=== PATIENT | female | born 1960 | race Caucasian/White ===

== ENCOUNTER → 2017-09-14 11:53 | Outpatient (REF) | payer MEDICAID, SELFPAY ==
[2017-09-14 13:24] LABS: Basophils # 0.1 K/mm3 (0-0.2); Basophils % 0.7 % (0.1-2.0); Eosinophils # 0.2 K/mm3 (0.0-0.4); Eosinophils % 2.5 % (0.1-12.0); Hematocrit 39.4 % (37.0-47.0); Hemoglobin 13.4 g/dL (12.2-16.2); Lymphocytes # 2.6 K/mm3 (0.7-4.5); Lymphocytes % 29.7 K/mm3 (10-50); Mean Corpuscular HGB Conc 34.1 g/dL (31.8-35.4); Mean Corpuscular Hemoglobin 29.7 pg (27.0-31.2); Mean Corpuscular Volume 87.2 fl (81-99); Mean Platelet Volume 6.7 fl (7.4-10.4); Monocytes # 0.4 K/mm3 (0.1-1.0); Monocytes % 5.1 % (1.7-9.3); Neutrophils # 5.4 K/mm3 (1.8-7.8); Neutrophils % 62.1 % (37.0-80.0); Platelet Count 369 K/mm3 (142-424); Red Blood Count 4.52 M/mm3 (4.20-5.40); Red Cell Distribution Width 13.3 % (11.5-17.5); White Blood Count 8.7 K/mm3 (4.8-10.8)
[2017-09-14 14:08] LABS: Alanine Aminotransferase 27 U/L (12-78); Albumin Level 3.5 gm/dL (3.4-5.0); Albumin/Globulin Ratio 1.1 (1.1-1.8); Alkaline Phosphatase 158 U/L (46-116); Aspartate Amino Transferase 19 U/L (15-37); Bilirubin,Total 0.6 mg/dL (0.2-1.0); Blood Urea Nitrogen 12 mg/dL (7-18); Calcium 9.7 mg/dL (8.5-10.1); Carbon Dioxide 32 mmol/L (21.0-32.0); Chloride 104 mmol/L (98-107); Chol/HDL Ratio 5.6 (1-3.5); Cholesterol 197 mg/dL (140-200); Creatinine,Serum 1.38 mg/dL (0.55-1.02); Estimated Glomerular Filt Rate 40 ml/min (>60); GFR (African American) 48 ML/MIN (>60); Globulin 3.3 gm/dl (1.3-3.2); Glucose 127 mg/dL (74-106); HDL Cholesterol 35 mg/dL (29-89); LDL Cholesterol 121 mg/dL (0-130); Sodium 143 mmol/L (136-145); T4 (Thyroxine) 8.5 ug/dl (4.7-13.3); Thyroid Stimulating Hormone 0.48 uIU/ml (0.358-3.740); Total Protein,Serum 6.8 gm/dL (6.4-8.2); Triglycerides 204 mg/dL (30-200); VLDL Cholesterol 41 mg/dL (0-40)
[2017-09-14 15:20] LABS: Hemoglobin A1C 5.9 % (0.0-7.0)
[2017-09-15 14:49] LABS: Vitamin D 25 Hydroxy 15.3 ng/mL (30.0-100.0)
== END ==
LOC: LAB 11:53
PROVIDERS: Visit Provider Physician Assistant
DX: R42 Dizziness and giddiness (principal)
CPT/HCPCS: 80053; 80061; 82652; 83036; 84436; 84443; 85025

== ENCOUNTER → 2017-12-23 12:51 | Outpatient (CLI) | payer MEDICAID, SELFPAY ==
--- NOTE | 2017-12-23 12:54 | CT_ITS ---
CT soft tissue neck wo con INDICATION: Right-sided neck swelling ITS.REASON: Swelling on right side of throat ORDERING PHYSICIAN: VON Jovel PATIENT AGE: 57 years COMPARISON: 02/20/2015 TECHNIQUE: Axial images are obtained without contrast. Sagittal and coronal reformatted images are reviewed as well. All CT scans at the facility use one or more dose reduction, viz: automated exposure control, ma/kV adjustment per patient size (including targeted exams where dose is matched to indication, i.e. head), or iterative reconstruction technique. FINDINGS: The orbits have an unremarkable appearance. There is mild mucosal thickening of the ethmoid sinuses. No sinus air-fluid level or mastoid effusion. There is fullness in the left nasopharyngeal region at the fossa of Rosenmuller. This is nonspecific and may limited due to nondistention have a somewhat similar appearance on the previous exam. Direct visualization may be of further value if clinically warranted. There are scattered small nodes present in the neck on both sides. No enlarged nodes are apparent. The parotid and submandibular glands have an unremarkable appearance. There is however a 4 mm calcific density just deep to the central aspect of the mandible on the right and is consistent with a sialolith at the distal aspect of Warthin's duct on the right. The thyroid gland isthmus is thin with suspected nodule at this area with an area of hyperdensity at 10 mm. Ultrasound may provide further evaluation. No glottic or supraglottic mass evident. There is calcification noted within the tonsillar crypts Lung apices are clear. Artifact is present from a left subclavian placed pacemaker. There has been prior median sternotomy. IMPRESSION: 1. 4 mm calcific density just deep to the central aspect of the mandible on the right and is consistent with a sialolith at the distal aspect of Warthin's duct on the right. No obvious mass or adenopathy. Shotty cervical nodes are present nonspecific. Previously noted edema of the right submandibular gland is not readily apparent on today's study. EXAM however is performed without contrast with decrease activity for inflammatory changes. 2. Slight increased density in the left fossa of Rosenmuller nonspecific. 3. Prominent isthmus of the thyroid gland with suspected nodule. This may be better evaluated with ultrasound if clinically warranted
== END ==
PROVIDERS: Family Provider Physician Assistant; PCP Physician Assistant; Visit Provider Physician Assistant
DX: J39.2 Other diseases of pharynx (principal)
CPT/HCPCS: 70490

== ENCOUNTER → 2018-03-15 13:41 | Outpatient (CLI) | payer MEDICAID, SELFPAY ==
[2018-03-15 14:08] LABS: Amphetamine/Metha Screen,Urine Negative ng/mL (<1000); Barbiturates Screen,Urine Negative ng/mL (<200); Benzodiazepines Screen,Urine Positive ng/mL (<200); Cannabinoid Screen,Urine Positive ng/mL (<50); Cocaine Screen,Urine Negative ng/mL (<300); Methadone Screen,Urine Negative ng/mL (<300); Opiate Screen,Urine Negative ng/mL (<300); Phencyclidine Screen,Urine Negative ng/mL (<25)
[2018-03-16 19:26] LABS: Basophils # 0.1 K/mm3 (0-0.2); Basophils % 1.4 % (0.1-2.0); Eosinophils # 0.4 K/mm3 (0.0-0.4); Eosinophils % 5.2 % (0.1-12.0); Hematocrit 39.2 % (37.0-47.0); Hemoglobin 13.9 g/dL (12.2-16.2); Lymphocytes # 2.2 K/mm3 (0.7-4.5); Lymphocytes % 28.6 K/mm3 (10-50); Mean Corpuscular HGB Conc 35.5 g/dL (31.8-35.4); Mean Corpuscular Hemoglobin 31.2 pg (27.0-31.2); Mean Platelet Volume 8.1 fl (7.4-10.4); Monocytes # 0.3 K/mm3 (0.1-1.0); Monocytes % 4.3 % (1.7-9.3); Neutrophils # 4.6 K/mm3 (1.8-7.8); Neutrophils % 60.5 % (37.0-80.0); Platelet Count 343 K/mm3 (142-424); Red Blood Count 4.46 M/mm3 (4.20-5.40); Red Cell Distribution Width 13.6 % (11.5-17.5); White Blood Count 7.7 K/mm3 (4.8-10.8)
[2018-03-16 20:27] LABS: Alanine Aminotransferase 20 U/L (12-78); Albumin Level 3.7 gm/dL (3.4-5.0); Albumin/Globulin Ratio 1.1 (1.1-1.8); Alkaline Phosphatase 129 U/L (46-116); Anion Gap 14.7 mEq/L (5-15); Aspartate Amino Transferase 14 U/L (15-37); Bilirubin,Total 0.3 mg/dL (0.2-1.0); Blood Urea Nitrogen 15 mg/dL (7-18); Calcium 9.7 mg/dL (8.5-10.1); Carbon Dioxide 27 mmol/L (21.0-32.0); Chloride 104 mmol/L (98-107); Chol/HDL Ratio 11.2 (1-3.5); Cholesterol 370 mg/dL (140-200); Estimated Glomerular Filt Rate 57 ml/min (>60); GFR (African American) 69 ML/MIN (>60); Globulin 3.5 gm/dl (1.3-3.2); Glucose 102 mg/dL (74-106); HDL Cholesterol 33 mg/dL (29-89); LDL Cholesterol 265 mg/dL (0-130); Potassium 3.7 mmoL/L (3.5-5.1); Sodium 142 mmol/L (136-145); Thyroid Stimulating Hormone 0.95 uIU/ml (0.358-3.740); Total Protein,Serum 7.2 gm/dL (6.4-8.2); Triglycerides 360 mg/dL (30-200); VLDL Cholesterol 72 mg/dL (0-40)
== END ==
PROVIDERS: Visit Provider Physician Assistant
DX: Z79.899 Other long term (current) drug therapy (principal)
CPT/HCPCS: 80053; 80061; 80305; 82652; 84436; 84443; 85025

== ENCOUNTER → 2018-03-16 19:05 | Outpatient (CLI) | payer MEDICAID, SELFPAY | PROVIDERS: Visit Provider Physician Assistant | DX: R53.83 Other fatigue (principal) | CPT/HCPCS: 80053; 80061; 82652; 84436; 84443; 85025 ==

== ENCOUNTER → 2018-06-23 08:33 | Outpatient (CLI) | payer MEDICAID, SELFPAY ==
--- NOTE | 2018-06-23 08:37 | CA_ITS ---
PROCEDURE: 2-D M-mode and color Doppler study INDICATIONS FOR THE TEST: Chest pain COPD Heart Murmur Tobacco SmokingX Palpitations Fatigue Syncope Edema HypertensionXDiabetes Mellitus Rheumatic Fever SOBXDOE Obesity HyperlipidemiaX Family History HD Additional History CAD,CABG,STENTS,RBBB,PP PATIENT INFORMATION HEIGHT: 70 WEIGHT:216 GENDER: Female B/P:129/70 2-D/M-MODE INTERPRETATION: 2-D MEASUREMENTS OBSERVED VALUES IN CMS Right Ventricular Dimension (RVDd) 1.3 Interventricular Septum (Thickness)(IVsd) 1.1 Left Ventricular Internal Dimensions(LVIDd) 5.7 Left Ventricular Posterior Wall (Thickness)(LVPWd) 1.1 Aortic Root 3.2 Aortic Cusp Separation 1.9 Left Atrial Dimensions (LAD) 3.3 2D 1. Left atrium is mildly enlarged, left ventricle is normal size, mild concentric left ventricular hypertrophy, visually estimated ejection fraction 55% with no regional wall motion abnormality. 2. The right atrium and right ventricle are normal size and contractility. 3. The aortic valve is minimally thickened and fibrosed. 4. The mitral and tricuspid valvular grossly normal. 5. The pulmonic valve is poorly visualized. 6. No significant pericardial effusion noted. DOPPLER INTERROGATION: Doppler interrogation of the aortic, mitral and tricuspid valvular presence of mild mitral and tricuspid regurgitation, tricuspid regurgitation jet velocity is inadequate for calculation of the right ventricular systolic pressure, grade 1 diastolic dysfunction seen without tissue Doppler evidence of raised left atrial pressure. CONCLUSION: 1. Mildly enlarged left atrium, normal left ventricular size, mild concentric left ventricular hypertrophy, visually estimated ejection fraction 55% with no regional wall motion abnormality, grade 1 diastolic dysfunction seen without tissue Doppler evidence of raised left atrial pressure. 2. Mild mitral and tricuspid regurgitation 3. No significant pericardial effusion noted.
--- NOTE | 2018-06-23 08:37 | CI_ITS ---
Cerebrovascular Exam Indications: Transient vision loss 368.12. 780.4 Dizziness and giddiness. IMPRESSIONS 1. The bilateral vertebral arteries are patent with normal antegrade flow. 2. Study suggests less than 20% stenosis involving the right internal carotid artery. No change from the study of 16-Feb-2017. 3. Study suggests 20-49% stenosis involving the left internal carotid artery. No change from the study of 16-Feb-2017. History: Risk factors: Current tobacco use. Hypertension. Hyperlipidemia. Labs, prior tests, procedures, and surgery: Right carotid stent (February 2016). Labs, prior tests, procedures, and surgery: Right carotid stent (February 2016). Carotid duplex study. Complete study and Doppler flow study including spectral analysis, color and lofton scale imaging. Tables: Arterial flow: + +--------+--------+ Location V sys V ed + +--------+--------+ Right CCA - proximal 99cm/s 20.4cm/s + +--------+--------+ Right CCA - distal 62.9cm/s 24.4cm/s + +--------+--------+ Right ECA 293cm/s 46.3cm/s + +--------+--------+ Right ICA - proximal 80.1cm/s 17.3cm/s + +--------+--------+ Right ICA - mid 85.6cm/s 25.9cm/s + +--------+--------+ Right ICA - distal 84.1cm/s 22cm/s + +--------+--------+ Right vertebral 35.8cm/s 15.7cm/s + +--------+--------+ Left CCA - proximal 96.9cm/s 18.3cm/s + +--------+--------+ Left CCA - distal 91.7cm/s 21cm/s + +--------+--------+ Left ECA 162cm/s 21cm/s + +--------+--------+ Left ICA - proximal 160cm/s 25.3cm/s + +--------+--------+ Left ICA - mid 134cm/s 32.3cm/s + +--------+--------+ Left ICA - distal 96.9cm/s 22.7cm/s + +--------+--------+ Left vertebral 25.5cm/s 9.8cm/s + +--------+--------+ Velocity ratios: + + + + + + Right, V sys Right, V ed Left, V sys Left, V ed + + + + + + Max ICA/dist CCA 1.36 1.06 1.74 1.54 + + + + + + (Report amended ) Electronically signed by: Ralf Urias [id number]
== END ==
PROVIDERS: PCP Physician Assistant; Visit Provider Physician Assistant
DX: R06.09 Other forms of dyspnea (principal); R42 Dizziness and giddiness; I65.23 Occlusion and stenosis of bilateral carotid arteries; E78.5 Hyperlipidemia, unspecified; F41.9 Anxiety disorder, unspecified; G62.9 Polyneuropathy, unspecified; I10 Essential (primary) hypertension; I11.9 Hypertensive heart disease without heart failure; I25.10 Atherosclerotic heart disease of native coronary artery without angina pectoris; I45.10 Unspecified right bundle-branch block; K21.9 Gastro-esophageal reflux disease without esophagitis; Z72.0 Tobacco use; Z95.0 Presence of cardiac pacemaker
CPT/HCPCS: 93306; 93880

== ENCOUNTER → 2018-09-05 14:59 | Outpatient (CLI) | payer MEDICAID, SELFPAY ==
[2018-09-05 15:12] LABS: Basophils # 0.1 K/mm3 (0-0.2); Basophils % 0.5 % (0.1-2.0); Eosinophils # 0.3 K/mm3 (0.0-0.4); Eosinophils % 2.7 % (0.1-12.0); Hematocrit 42.3 % (37.0-47.0); Hemoglobin 14.3 g/dL (12.2-16.2); Lymphocytes # 3.4 K/mm3 (0.7-4.5); Lymphocytes % 33.6 % (10-50); Mean Corpuscular HGB Conc 33.7 g/dL (31.8-35.4); Mean Corpuscular Hemoglobin 29.8 pg (27.0-31.2); Mean Corpuscular Volume 88.6 fl (81-99); Mean Platelet Volume 8.2 fl (7.4-10.4); Monocytes # 0.5 K/mm3 (0.1-1.0); Monocytes % 4.4 % (1.7-9.3); Neutrophils % 58.8 % (37.0-80.0); Platelet Count 385 K/mm3 (142-424); Red Blood Count 4.78 M/mm3 (4.20-5.40); Red Cell Distribution Width 13.4 % (11.5-17.5); White Blood Count 10.2 K/mm3 (4.8-10.8)
[2018-09-05 16:18] LABS: Amphetamine/Metha Screen,Urine Negative ng/mL (<1000); Barbiturates Screen,Urine Negative ng/mL (<200); Benzodiazepines Screen,Urine Positive ng/mL (<200); Cannabinoid Screen,Urine Positive ng/mL (<50); Cocaine Screen,Urine Negative ng/mL (<300); Methadone Screen,Urine Negative ng/mL (<300); Opiate Screen,Urine Negative ng/mL (<300); Phencyclidine Screen,Urine Negative ng/mL (<25)
[2018-09-05 16:34] LABS: Alanine Aminotransferase 26 U/L (12-78); Albumin/Globulin Ratio 1.2 (1.1-1.8); Alkaline Phosphatase 156 U/L (46-116); Anion Gap 13.7 mEq/L (5-15); Aspartate Amino Transferase 8 U/L (15-37); Bilirubin,Total 0.3 mg/dL (0.2-1.0); Blood Urea Nitrogen 15 mg/dL (7-18); Calcium 9.9 mg/dL (8.5-10.1); Carbon Dioxide 28 mmol/L (21.0-32.0); Chloride 104 mmol/L (98-107); Chol/HDL Ratio 5.6 (1-3.5); Cholesterol 247 mg/dL (140-200); Creatinine,Serum 1.04 mg/dL (0.55-1.02); Estimated Glomerular Filt Rate 55 ml/min (>60); GFR (African American) 66 ML/MIN (>60); Globulin 3.4 gm/dl (1.3-3.2); Glucose 103 mg/dL (74-106); HDL Cholesterol 44 mg/dL (29-89); LDL Cholesterol 169 mg/dL (0-130); Potassium 3.7 mmoL/L (3.5-5.1); Sodium 142 mmol/L (136-145); T4 (Thyroxine) 9.4 ug/dl (4.7-13.3); Thyroid Stimulating Hormone 0.43 uIU/ml (0.358-3.740); Total Protein,Serum 7.4 gm/dL (6.4-8.2); Triglycerides 170 mg/dL (30-200); VLDL Cholesterol 34 mg/dL (0-40)
[2018-09-07 07:11] LABS: Vitamin D 25 Hydroxy 32.9 ng/mL (30.0-100.0)
[2018-09-07 09:09] LABS: Thyroid Peroxidase Antibodies 24 IU/mL (0-34)
[2018-09-09 06:40] LABS: Thyroid Stimulating Immunoglob <0.10 IU/L (0.00-0.55)
== END ==
PROVIDERS: Visit Provider Physician Assistant
DX: Z79.899 Other long term (current) drug therapy (principal); G62.9 Polyneuropathy, unspecified; E01.0 Iodine-deficiency related diffuse (endemic) goiter
CPT/HCPCS: 80053; 80061; 80305; 82652; 84436; 84443; 84445; 85025; 86376

== ENCOUNTER → 2018-09-08 12:23 | Outpatient (CLI) | payer MEDICAID, SELFPAY ==
[2018-09-08 13:44] LABS: Free Thyroxine Index 3.1 ug/dL (5.93-13.13); T4 (Thyroxine) 9.7 ug/dl (4.7-13.3); Thyroid Stimulating Hormone 0.49 uIU/ml (0.358-3.740); Triiodothryronine (T3) Uptake 32 % (31-39)
[2018-09-09 12:41] LABS: Thyroid Peroxidase Antibodies 16 IU/mL (0-34)
[2018-09-12 10:12] LABS: Thyroid Stimulating Immunoglob <0.10 IU/L (0.00-0.55)
== END ==
PROVIDERS: Visit Provider Otolaryngology
DX: E01.0 Iodine-deficiency related diffuse (endemic) goiter (principal); R13.10 Dysphagia, unspecified
CPT/HCPCS: 36415; 84436; 84443; 84445; 84479; 86376

== ENCOUNTER → 2018-09-14 08:55 | Outpatient (CLI) | payer MEDICAID, SELFPAY ==
--- NOTE | 2018-09-14 09:30 | US_ITS ---
US thyroid HISTORY: ITS.REASON: thyromegly ORDERING PHYSICIAN: Chu Gaspar MD PATIENT AGE: 58 years Comparison: None FINDINGS: Right lobe: 4.7 x 1.7 x 1.6 cm. Nodule A: 3 mm cyst mid polar region. Nodule B: 15 x 11 mm isoechoic nodule lower pole deep within the lobe Nodule C: 5 mm hypoechoic nodule lower pole Left lobe: The left lobe measures 4.4 x 1.6 x 1.4 cm. Nodule A: 4 mm cyst upper pole Isthmus: Thickened at 7 mm. There is a 18 x 10 mm slightly hypoechoic and irregular lesion along the inferior portion of the isthmus. IMPRESSION: 1. Enlarged thyroid gland bilaterally. 2. Multiple thyroid nodules the largest in the inferior aspect of the isthmus. This nodule has a slightly suspicious appearance hypoechoic with nodularity. Fine-needle aspiration with ultrasound guidance could be performed if clinically desired
--- NOTE | 2018-09-14 10:00 | FL_ITS ---
EXAM: Barium swallow/esophagram. INDICATION: ITS.REASON: diffic. swallowing ORDERING PHYSICIAN: Chu Gaspar MD PATIENT AGE: 58 years COMPARISON: None TECHNIQUE: In the upright position the patient was observed to swallow barium in both the AP and lateral view. The cervical esophagus was examined under fluoroscopy with images obtained. The patient was then placed prone in the right anterior oblique position and was observed to swallow barium with Valsalva technique . FLUOROSCOPY TIME: 55 seconds FINDINGS: There was no evidence of aspiration. There was normal peristalsis. No filling defects or mucosal abnormalities. No masses or strictures. Bony spurring involves the cervical spine anteriorly at C5-C6 and to a greater degree at C6-C7 causing some indentation upon the posterior aspect of the esophagus. There is a small sliding hiatal hernia with Valsalva. No annular constricting lesions or polypoid filling defect. IMPRESSION: 1. Small sliding hiatal hernia. 2. Cervical spine osteophytes causing some mild indentation upon the posterior aspect of the esophagus at C6-C7
== END ==
PROVIDERS: PCP Physician Assistant; Visit Provider Otolaryngology
DX: E01.0 Iodine-deficiency related diffuse (endemic) goiter (principal); R13.10 Dysphagia, unspecified
CPT/HCPCS: 74220; 76536

== ENCOUNTER → 2018-10-10 09:43 | Outpatient (CLI) | payer MEDICAID, SELFPAY ==
--- NOTE | 2018-10-10 09:46 | US_ITS ---
US FNA Thyroid HISTORY: Irregular nodule along the inferior portion of the isthmus slightly suspicious ORDERING PHYSICIAN: Chu Gaspar MD PATIENT AGE: 58 years COMPARISON: None TECHNIQUE: Following obtaining informed consent, using aseptic technique and local anesthesia with buffered lidocaine, fine-needle aspiration was performed of the nodule of interest using sonographic guidance. 2 passes were made into the nodule with a 21-gauge and 25-gauge needle. Specimen was given to cytology. The patient tolerated the procedure well without evidence of immediate complications and left the ultrasound suite in stable condition. CYTOLOGY:Negative for malignancy IMPRESSION: Successful sonographic guided fine needle aspiration of the isthmus nodule the thyroid gland showing benign findings
== END ==
PROVIDERS: PCP Physician Assistant; Visit Provider Otolaryngology
DX: E04.1 Nontoxic single thyroid nodule (principal)
CPT/HCPCS: 10005; 76942

== ENCOUNTER → 2019-06-06 13:45 | Outpatient (CLI) | payer OTHER, SELFPAY ==
--- NOTE | 2019-06-06 13:45 | CT_ITS ---
PROCEDURE: CT HEAD/BRAIN WO CON CLINICAL INDICATION: Vertigo COMPARISON: No exams were available for comparison TECHNIQUE: Axial images obtained. All CT scans at the facility use one or more dose reduction, viz: automated exposure control, ma/kV adjustment per patient size (including targeted exams where dose is matched to indication, i.e. head), or iterative reconstruction technique. FINDINGS: No midline shift, mass effect, intracranial hemorrhage, hydrocephalus, or extra-axial fluid collection is evident. There is asymmetrical enlargement of the left lateral ventricle felt to be within the normal variation. A 3 millimeter fat density consistent with lipoma is seen along the anterior midline falx. The calvarium has an unremarkable appearance. No mastoid effusion. No sinus air-fluid level. Mild mucosal thickening of sinusitis is seen in the bilateral ethmoid sinuses and right sphenoid sinus. IMPRESSION: No acute intracranial finding Dictated by: Perfecto Pack 06/06/2019 14:11 Electronically signed by Perfecto Pack in [facility] 06/06/2019 14:11
== END ==
PROVIDERS: PCP Physician Assistant; Visit Provider Physician Assistant
DX: R42 Dizziness and giddiness (principal)
CPT/HCPCS: 70450

== ENCOUNTER → 2019-06-06 17:14 | Outpatient (CLI) | payer OTHER, SELFPAY ==
[2019-06-06 18:29] LABS: Basophils # 0.1 K/mm3 (0-0.2); Basophils % 0.7 % (0.1-2.0); Eosinophils # 0.2 K/mm3 (0.0-0.4); Eosinophils % 1.7 % (0.1-12.0); Hematocrit 43.2 % (37.0-47.0); Hemoglobin 14.1 g/dL (12.2-16.2); Lymphocytes # 2.7 K/mm3 (0.7-4.5); Lymphocytes % 30.7 % (10-50); Mean Corpuscular HGB Conc 32.6 g/dL (31.8-35.4); Mean Corpuscular Hemoglobin 29.5 pg (27.0-31.2); Mean Corpuscular Volume 90.3 fl (81-99); Mean Platelet Volume 8.9 fl (7.4-10.4); Monocytes # 0.5 K/mm3 (0.1-1.0); Monocytes % 5.7 % (1.7-9.3); Neutrophils # 5.3 K/mm3 (1.8-7.8); Neutrophils % 61.1 % (37.0-80.0); Platelet Count 432 K/mm3 (142-424); Red Blood Count 4.79 M/mm3 (4.20-5.40); Red Cell Distribution Width 13.8 % (11.5-17.5); White Blood Count 8.7 K/mm3 (4.8-10.8)
[2019-06-06 19:27] LABS: Amphetamine/Metha Screen,Urine Positive ng/mL (<1000); Barbiturates Screen,Urine Negative ng/mL (<200); Benzodiazepines Screen,Urine Positive ng/mL (<200); Cannabinoid Screen,Urine Positive ng/mL (<50); Cocaine Screen,Urine Negative ng/mL (<300); Methadone Screen,Urine Negative ng/mL (<300); Opiate Screen,Urine Negative ng/mL (<300); Phencyclidine Screen,Urine Negative ng/mL (<25)
[2019-06-06 19:32] LABS: Alanine Aminotransferase 18 U/L (12-78); Albumin Level 3.6 gm/dL (3.4-5.0); Albumin/Globulin Ratio 1.1 (1.1-1.8); Alkaline Phosphatase 163 U/L (46-116); Anion Gap 15.6 mEq/L (5-15); Aspartate Amino Transferase 15 U/L (15-37); Bilirubin,Total 0.3 mg/dL (0.2-1.0); Blood Urea Nitrogen 10 mg/dL (7-18); Calcium 9.9 mg/dL (8.5-10.1); Carbon Dioxide 29 mmol/L (21.0-32.0); Chloride 104 mmol/L (98-107); Chol/HDL Ratio 6.2 (1-3.5); Cholesterol 240 mg/dL (140-200); Creatinine,Serum 1.14 mg/dL (0.55-1.02); Estimated Glomerular Filt Rate 49 ml/min (>60); GFR (African American) 59 ML/MIN (>60); Globulin 3.3 gm/dl (1.3-3.2); Glucose 126 mg/dL (74-106); HDL Cholesterol 39 mg/dL (29-89); LDL Cholesterol 162 mg/dL (0-130); Potassium 3.6 mmoL/L (3.5-5.1); Sodium 145 mmol/L (136-145); Thyroid Stimulating Hormone 0.49 uIU/ml (0.358-3.740); Total Protein,Serum 6.9 gm/dL (6.4-8.2); Triglycerides 196 mg/dL (30-200); VLDL Cholesterol 39 mg/dL (0-40)
[2019-06-09 09:12] LABS: Vitamin D 25 Hydroxy 33.7 ng/mL (30.0-100.0)
[2019-06-10 17:51] LABS: Amphetamines Negative (Cutoff=500)
== END ==
PROVIDERS: Visit Provider Physician Assistant
DX: I10 Essential (primary) hypertension (principal); Z79.899 Other long term (current) drug therapy; E55.9 Vitamin D deficiency, unspecified; E78.5 Hyperlipidemia, unspecified
CPT/HCPCS: 80053; 80061; 80305; 80324; 82652; 84436; 84443; 85025

== ENCOUNTER → 2019-06-14 16:02 | Outpatient (CLI) | payer OTHER, SELFPAY ==
--- NOTE | 2019-06-14 16:05 | XR_ITS ---
PROCEDURE: XR ELBOW LT MIN 3V CLINICAL INDICATION: Left elbow pain COMPARISON: No exams were available for comparison FINDINGS: No fracture or dislocation. No lytic or blastic change. There is normal mineralization. The joint spaces are well-preserved. No significant degenerative/arthritic changes. No erosive changes evident. Other findings:None. IMPRESSION: No acute findings. Dictated by: Ralf Urias MD 06/14/2019 16:26 Electronically signed by Ralf Urias MD in [facility] 06/14/2019 16:26
--- NOTE | 2019-06-14 16:05 | XR_ITS ---
PROCEDURE: XR CERVICAL SPINE 4V CLINICAL INDICATION: BUE numbness tingling COMPARISON: No exams were available for comparison FINDINGS: Normal alignment. Degenerative disc disease is present at C5-C6 and C6-C7. There are anterior osteophytes at these levels as well. There are mild facet arthritic changes at C7-T1. No foraminal narrowing apparent. Carotid artery stent is present on the right IMPRESSION: Degenerative changes as described above Dictated by: Ralf Urias MD 06/14/2019 16:29 Electronically signed by Ralf Urias MD in [facility] 06/14/2019 16:29
[2019-06-14 18:17] LABS: Anion Gap 12.5 mEq/L (5-15); Blood Urea Nitrogen 14 mg/dL (7-18); Carbon Dioxide 29 mmol/L (21.0-32.0); Chloride 106 mmol/L (98-107); Creatinine,Serum 1.15 mg/dL (0.55-1.02); Estimated Glomerular Filt Rate 49 ml/min (>60); GFR (African American) 59 ML/MIN (>60); Glucose 110 mg/dL (74-106); Potassium 3.5 mmoL/L (3.5-5.1); Sodium 144 mmol/L (136-145)
== END ==
PROVIDERS: PCP Physician Assistant; Visit Provider Physician Assistant
DX: M79.603 Pain in arm, unspecified (principal); M25.522 Pain in left elbow; E87.6 Hypokalemia; R73.09 Other abnormal glucose
CPT/HCPCS: 36415; 72050; 73080; 80048; 83036

== ENCOUNTER → 2019-07-13 12:59 | Outpatient (CLI) | payer OTHER, SELFPAY ==
--- NOTE | 2019-07-13 12:59 | CT_ITS ---
PROCEDURE: CT CERVICAL SPINE WO CON CLINICAL INDICATION: DDD Neck pain, degenerative disc disease. COMPARISON: No exams were available for comparison TECHNIQUE: Axial images obtained with sagittal and coronal reformats. All CT scans at the facility use one or more dose reduction, viz: automated exposure control, ma/kV adjustment per patient size (including targeted exams where dose is matched to indication, i.e. head), or iterative reconstruction technique. Axial spiral CT scanning performed of the cervical spine beginning at the base of the skull and continuing to the upper T-spine. 3-D multiplanar reconstruction with 3-D manipulation of volumetric data set in image rendering was completed by the radiologist and/or technologist with the supervision of the radiologist on independent workstation. FINDINGS: There is normal alignment. No fracture or dislocation is evident. Unremarkable craniocervical junction. C2-C3: Unremarkable. C3-C4: Mild bulging disc. C4-C5: Minimal central disc protrusion versus mild prominence of the posterior longitudinal ligament. There is some minimal posterior longitudinal ligament calcification at C5. C5-C6: Degenerative disc disease with small broad-based central left paracentral disc protrusion. C6-C7: Moderate degenerative disc disease with broad-based central left paracentral disc osteophyte complex with uncovertebral hypertrophy causing mild left lateral recess narrowing and moderate to severe left-sided foraminal narrowing. C7-T1: The disc space is unremarkable. There is prominent osteophyte on the left at the costo vertebral junction. Incidental note is made of prominence of the isthmus and right lobe of the thyroid gland. Lung apices are clear. IMPRESSION: 1. Multilevel cervical spondylosis as detailed above. 2. C4-C5: Minimal central disc protrusion versus mild prominence of the posterior longitudinal ligament. There is some minimal posterior longitudinal ligament calcification at C5. 3. C5-C6: Degenerative disc disease with small broad-based central left paracentral disc protrusion. 4. C6-C7: Moderate degenerative disc disease with broad-based central left paracentral disc osteophyte complex with uncovertebral hypertrophy causing mild left lateral recess narrowing and moderate to severe left-sided foraminal narrowing. Dictated by: Ralf Urias MD 07/14/2019 10:45 Electronically signed by Ralf Urias MD in [facility] 07/14/2019 10:45
== END ==
PROVIDERS: PCP Physician Assistant; Visit Provider Physician Assistant
DX: M50.30 Other cervical disc degeneration, unspecified cervical region (principal); M54.2 Cervicalgia
CPT/HCPCS: 72125

== ENCOUNTER → 2019-12-04 12:00 | Outpatient (CLI) | payer OTHER, SELFPAY ==
--- NOTE | 2019-12-04 | CA_ITS ---
APPROVED REPORT Exam: Pharmacologic Technologist: Karlie Rangel Ht: 5 ft 10 in Wt: 200 lbs BSA: 2.09 m2 HR: 70 bpm BP: 155/79 mmHg Indications: Shortness of Air, carotid stenosis, thyroid nodule Medical History Medications: Amlodipine,,,,, Omeprazole,,,,, Aspirin,,,,, Metoprolol,,,,, Hydrocodone,,,,, Gabapentin,,,,, Diazepam,,,,, Losartan,,,,, Atorvastatin,,,,, Albuterol,,,,, DicyCLOMINE,,,,, Vitamin B Complex,,,,, Stress Test Details Test: LEXISCAN HR Resting HR: 79 bpm Max Heart Rate (APMHR): 162 bpm Max HR Achieved: 92 bpm Target HR (85% APMHR): 137 bpm % of APMHR: 56 Recovery HR: 76 bpm BP Resting BP: 155.0/79.0 mmHg Max BP: 173.0/77.0 mmHg Recovery BP: 136.0/79.0 mmHg ECG Clinical Exercise duration: 04:01 min Highest Stage Achieved: Stress ECG Conclusion Resting ECG: Atrial paced rhythm, right bundle branch block, poor R wave progression. Symptoms: Mild shortness of air, nausea, malaise. No chest pain. Arrhythmias/Ectopy: None ST-T Changes: No significant changes. Conclusion: Unremarkable Lexiscan stress. Myoview images reported separately. Test Summary RECOVERY 03:33 . . 82 . 136/ 79 . . REST 02:58 . . 79 . 155/ 79 . . Stage 1 . . . . . . . Myoview Injected Stage 1 01:00 . . 85 . . . . Stage 2 01:00 . . 88 . 165/ 82 . . Stage 3 01:00 . . 86 . 173/ 77 . . Stage 4 01:00 . . 81 . 135/ 72 . . Stage 4 01:01 . . 81 . 135/ 72 . Stop exercise at 04:01 RECOVERY 01:00 . . 82 . 146/ 81 . . RECOVERY 02:00 . . 80 . 146/ 81 . . RECOVERY 03:00 . . 76 . 136/ 79 . . RECOVERY 03:33 . . 82 . 136/ 79 . . Electronically signed by : Davis Shore, 12/04/2019 20:28:18
--- NOTE | 2019-12-04 12:05 | NM_ITS ---
APPROVED REPORT Exam: Nuclear Stress Test Indication: CAD, 3 STENTS, HTN, HYPERLIPIDEMIA, TOB USE, FM HX, SOB, ABN EKG Patient Location: Outpatient Stress Tech: Karlie Rangel [place] Tech:Arline Sanford PONCHO RT(R)(N) Ht: 5 ft 10 in Wt: 200 lbs Bra Size: DD HR: 70 bpm BP: 155/79 mmHg BSA: 2.09 m2 BMI: 28.6 History: CAD, 3 STENTS, HTN, HYPERLIPIDEMIA, TOB USE, FM HX, SOB, ABN EKG Procedure: Patient received a 0.4 mg of intravenous Lexiscan, resting heart rate 70 bpm, resting blood pressure 155/79 mmHg, with Lexiscan maximum heart rate achived was 99 bpm which is Less than 85 % of the maximum predicted heart rate and blood pressure was 165/82 mmHg. Electrocardiogram Resting electrocardiogram shows sinus rhythm right bundle branch block, with Lexiscan there is less than 1.[address] segment depression noted from the baseline EKG. The EKG portion of the Lexiscan Myoview is nondiagnostic. Cardiac Stress and Resting SPECT Images: Cardiac Stress and Resting SPECT images were obtained using technetium 99m Myoview 31.2 mCi stress and 10.19 mCi at rest. Gated SPECT for analysis of segmental wall motion and calculation of the ejection fraction also done. Cardiac stress and resting SPECT images show uniform myocardial activity without segmental perfusion abnormality, computer derived ejection fraction is over 65% with no regional wall motion abnormality, right ventricle is normal size and contractility. Conclusion: 1. The EKG portion of the Lexiscan Myoview is nondiagnostic. 2. No scintigraphic evidence of reversible ischemia seen, computer derived ejection fraction is over 65% with no regional wall motion abnormality, right ventricle is normal size and contractility. 3. Normal Lexiscan Myoview study. Electronically signed by : Davis Shore, 12/04/2019 20:30:05
--- NOTE | 2019-12-04 12:05 | US_ITS ---
PROCEDURE: US THYROID CLINICAL INDICATION: THyromegaly; thyroid nodules COMPARISON: THY US thyroid from 09/14/2018 FNATHY US FNA Thyroid from 10/10/2018 FINDINGS: Right lobe: 1.7cm x 4.7cm x 2.1cm. A 3 mm cyst is present in the upper pole. 3 mm cyst in the mid polar region. 6 mm mixed nodule in the midpole not significantly changed. 3 mm hypoechoic nodule with central increased echogenicity lower pole Left lobe: 1.4cm x 4.0cm x 1.3cm. 4 mm cyst upper pole. 2 mm hypoechoic nodule lower pole Isthmus: There is a 1.7 by 0.9 cm mixed solid and cystic nodule involving the isthmus similar to the previous exam. FNA was performed of this nodule showing benign findings. Additional findings: IMPRESSION: Stable appearance of the isthmus nodule with other benign-appearing nodules as described above. Dictated by: Ralf Urias MD 12/05/2019 11:14 Electronically signed by Ralf Urias MD in [facility] 12/05/2019 11:14
--- NOTE | 2019-12-04 12:10 | CA_ITS ---
APPROVED REPORT EXAM: Comprehensive 2D, Doppler, and color-flow Echocardiogram Bandmill Operator: Dulce William CRT Ht: 5 ft 10 in Wt: 200lbs BSA: 2.09 BP: 142/80 mmHg Indications: SOA,CAD,CABG,RBBB,PP 2D Dimensions LVOT 1.75 cm (M/F) 1.5-2.5 M-Mode Dimensions RVDd 2.16 cm (0.9-2.6) LVDd 4.68 cm (3.5-5.7) LVDs 3.42 cm (3.5-5.7) IVSd 1.04 cm (0.6-1.1) PWd 0.92 cm (0.6-1.1) EF (Teich) 52.50% FS 26.90% EDV (Teich) 101.30 mL ESV (Teich) 48.10 mL LV Diastology E/A Ratio 0.92 Mitral Valve MV A Velocity 66.00 (40-130 cm/s) Left Ventricle Left atrium is mildly enlarged, left ventricle is normal size, mild concentric left ventricular hypertrophy, visually estimated ejection fraction 55% with no regional wall motion abnormality, grade 1 diastolic dysfunction seen without tissue Doppler evidence of raise left atrial pressure. Right Ventricle Right atrium and right ventricle are normal size and contractility. Aortic Valve Aortic valve is minimally thickened and calcified, there is no aortic stenosis or aortic insufficiency. Mitral Valve Mitral valve is grossly normal, there is mild mitral regurgitation. Tricuspid Valve Tricuspid valve is grossly normal, there is mild tricuspid regurgitation, calculated right ventricular systolic pressure 36 mmHg. Pulmonic Valve Pulmonic valve is poorly visualized. Great Vessels Aortic root is normal size. Pericardium No significant pericardial effusion noted. Conclusion 1. Mildly enlarged left atrium, normal left ventricular size, mild concentric left ventricular hypertrophy, visually estimated ejection fraction 55% with no regional wall motion abnormality, grade 1 diastolic dysfunction seen without tissue Doppler evidence of raise left atrial pressure. 2. Mild mitral and tricuspid regurgitation, calculated right ventricular systolic pressure 36 mmHg. 3. No significant pericardial effusion noted. Electronically signed by : Davis Shore, 12/04/2019 20:24:02
--- NOTE | 2019-12-04 12:10 | CA_ITS ---
APPROVED REPORT Palliative Medicine Physician: CT Laterality: Bilateral Study Quality: Good Indications: elpidio Risk Factors Hypertension: Hyperlipidemia Smoking Surgery/Intervention Carotid Stent: right Date: 02/2016 Doppler Spectral Velocity Analysis dICA (R) 96.80/31.70 cm/s ECA (L) 257.20/41.20 cm/s Moon (R) 104.50/26.60 cm/s pICA (R) 113.10/34.30 cm/s dICA (L) 123.00/27.70 cm/s Moon (L) 118.80/29.40 cm/s pICA (L) 151.70/33.10 cm/s dCCA (R) 77.70/18.60 cm/s pCCA (R) 122.50/21.40 cm/s dCCA (L) 60.10/17.70 cm/s Vert (R) 26.50/10.70 cm/s pCCA (L) 111.90/17.10 cm/s ICA/CCA 1.50 Vert (L) 16.60/6.70 cm/s ICA/CCA 2.50 Findings Duplex evaluation demonstrates stenosis of the right proximal internal carotid artery <20% with PSV <140 cm/sec, EDV <100 cm/sec, and IC/CC Ratio <4.0. Duplex evaluation demonstrates stenosis of the left proximal internal carotid artery in the range of 50-69% with PSV =140 cm/sec, EDV <100 cm/sec, and IC/CC Ratio <4.0, lower end of scale. Duplex evaluation demonstrates antegrade flow of the bilateral Vertebral Arteries. Duplex evaluation demonstrates >60% stenosis of the External Carotid Arteries bilaterally. Conclusion Duplex evaluation demonstrates stenosis of the right proximal internal carotid artery <20% with PSV <140 cm/sec, EDV <100 cm/sec, and IC/CC Ratio <4.0. Duplex evaluation demonstrates stenosis of the left proximal internal carotid artery in the range of 50-69% with PSV =140 cm/sec, EDV <100 cm/sec, and IC/CC Ratio <4.0, lower end of scale. Duplex evaluation demonstrates antegrade flow of the bilateral Vertebral Arteries. Electronically signed by : Ralf Urias MD 12/04/2019 17:16:53
== END ==
PROVIDERS: PCP Physician Assistant; Visit Provider Urology
DX: E78.5 Hyperlipidemia, unspecified (principal); G62.9 Polyneuropathy, unspecified; I11.9 Hypertensive heart disease without heart failure; I25.10 Atherosclerotic heart disease of native coronary artery without angina pectoris; I45.10 Unspecified right bundle-branch block; I65.29 Occlusion and stenosis of unspecified carotid artery; R06.00 Dyspnea, unspecified; Z72.0 Tobacco use; Z95.0 Presence of cardiac pacemaker; E01.0 Iodine-deficiency related diffuse (endemic) goiter
CPT/HCPCS: 76536; 78452; 93017; 93306; 93880; A9502; J2785

== ENCOUNTER 2020-01-12 11:45 | Emergency (ER) | payer OTHER, SELFPAY ==
--- NOTE | 2020-01-12 11:38 | ECG_ITS ---
APPROVED REPORT Exam: Resting ECG HR:70 bpm ECG Measurements Heart Rate 70 AXES CA 166 P 81 QRSd 148 QRS -37 QT 432 T 16 QTc 466 <Conclusion> Electronic atrial pacemaker Left axis deviation Right bundle branch block Abnormal ECG Electronically signed by : Lefty Hui, 01/13/2020 19:53:05
[2020-01-12 11:47] VITALS: BP 169/80; PULSE 70; RESP 19; O2SAT 100; BMI 31.7
--- NOTE | 2020-01-12 11:47 | HMH.EDGENADL ---
ED Disposition Clinical Impression: Hypokalemia Chest pain Qualifiers: Chest pain type: unspecified Qualified Code(s): R07.9 - Chest pain, unspecified Back pain Qualifiers: Back pain location: low back pain Chronicity: acute Back pain laterality: right Sciatica presence: without sciatica Qualified Code(s): M54.5 - Low back pain Disposition: Home, Self-Care Condition on Discharge: Good Referrals: PCP,No [Non-Staff] - Time of Disposition: 15:25 - Critical Care Critical Care Time: No Attestation: On , the high probability of a clinically significant, sudden or life threatening deterioration of the following system(s) required my full and direct attention, intervention and personal management. The time I documented below is in addition to time spent performing reported procedures but includes the following listed in this critical care notation. Medical Decision Making - Medical Records Medical records reviewed: Yes: I reviewed the patient's medical records. MR Comment: 59-year-old female with a complex past medical history presents the emergency department with chest and back pain. It is also possible she had an episode of syncope on the way here that she states was related to her pain. Chest pain is atypical, she describes her right lower back pain as muscle spasms, which she has had before and she has visited multiple ED's over the last few days for treatment for pain. Urine has been checked at previous visits, no UTI. She is tearful on exam. Given her heart history and concern for chest pain possible syncope, we will be doing a CT of the chest abdomen pelvis to look for acute aortic process, troponin and EKG to further evaluate chest pain, and will reassess. Patient has for pain medicine multiple times, and states that she left the last hospital after receiving Dilaudid because this helped her pain. Upon further history, she also states her PCP is taking her off of her pain medication and benzodiazepines due to finding other substances in her urine drug screen. I told patient that with her heart history and history of chest pain, though she denies chest pain here, she should be admitted for further work-up. However, she states that she does not desire to be admitted and wants to go home. She was frustrated that she was given Zofran for her nausea and states that only Phenergan helps. Patient was reassessed again, and continues to complain of pain, is not interested in admission for further work-up. I find this to be concerning for issues related to secondary gain. She also isocenter home with pain medication, which I refused today. Especially since she does not want further evaluation. Labs at this time are nonactionable, troponin negative. CT personally reviewed and read by radiology does not show any acute concerning process. I spoke with patient on multiple occasions about admission, and she would like to go home. Advised that she follow-up quickly with her PCP. She was given strict return precautions and discharge instructions including follow-up for further evaluation and treatment and verbalized understanding and agreement to the plan. Also advised recheck on potassium with PCP. Given that she does not want to stay, is not having any chest pain here, and labs are otherwise nonactionable, will discharge her instead of making her sign out AMA. However this patient's overall complaints and behavior are concerning. - Paul Inquiry Pt receiving controlled substance: No Vital Signs: 01/12/20 11:47 01/12/20 12:26 01/12/20 14:44 Pulse Rate [Left Radial] 70 57 L 73 Respiratory Rate 19 Blood Pressure [Right Arm] 169/80 H 165/80 H 125/68 Blood Pressure Mean [Right Arm] 109 108 87 Blood Pressure Source [Right Arm] Automatic Cuff Automatic Cuff Automatic Cuff Blood Pressure Position [Right Arm] Sitting Sitting Sitting 02 Sat by Pulse Oximetry 100 97 94 L Oxygen Delivery Method Room Air Room Air Room Air - Lab Sabino
--- NOTE | 2020-01-12 12:00 | XR_ITS ---
PROCEDURE: XR CHEST 2V CLINICAL HISTORY: chest pain COMPARISON: CR CXR CHEST(2 VIEWS-NOT PORTABLE) from 12/04/2014 CR XR CHEST 2V from 06/12/2019 CR XR CHEST PORTABLE from 07/17/2019 FINDINGS: Prior CABG. Bipolar pacemaker is present from left subclavian approach. The lungs are clear without infiltrates, suspicious nodules, or pleural effusions. No acute bony abnormalities. IMPRESSION: No acute findings. Dictated by: Ralf Urias MD 01/12/2020 13:44 Ralf Urias MD in [facility] 01/12/2020 13:44
[2020-01-12 12:09] LABS: Basophils # 0.1 K/mm3 (0-0.2); Basophils % 0.6 % (0.1-2.0); Eosinophils # 0.1 K/mm3 (0.0-0.4); Eosinophils % 1.3 % (0.1-12.0); Hematocrit 43.8 % (37.0-47.0); Hemoglobin 15.7 g/dL (12.2-16.2); Lymphocytes # 2.3 K/mm3 (0.7-4.5); Lymphocytes % 24.1 % (10-50); Mean Corpuscular HGB Conc 35.8 g/dL (31.8-35.4); Mean Corpuscular Hemoglobin 30.7 pg (27.0-31.2); Mean Corpuscular Volume 85.5 fl (81-99); Mean Platelet Volume 7.1 fl (7.4-10.4); Monocytes # 0.4 K/mm3 (0.1-1.0); Monocytes % 4.1 % (1.7-9.3); Neutrophils # 6.5 K/mm3 (1.8-7.8); Neutrophils % 69.9 % (37.0-80.0); Platelet Count 399 K/mm3 (142-424); Red Blood Count 5.12 M/mm3 (4.20-5.40); Red Cell Distribution Width 14.2 % (11.5-17.5); White Blood Count 9.3 K/mm3 (4.8-10.8)
[2020-01-12 12:15] LABS: Amylase 113 U/L (30-110); Anion Gap 12.3 mEq/L (5-15); Blood Urea Nitrogen 15 mg/dl (7-17); Calcium 9.9 mg/dl (8.4-10.2); Carbon Dioxide 29 mmol/L (22.0-30.0); Chloride 103 mmol/L (98-107); Creatinine Clearance Estimated 81 mL/min (50-200); Estimated Glomerular Filt Rate 57 ml/min (>60); GFR (African American) 69 ML/MIN (>60); Glucose 139 mg/dl (74-100); Lipase 76 U/L (23-300); Potassium 3.3 mmoL/L (3.5-5.1); Sodium 141 mmol/L (136-145)
[2020-01-12 12:26] VITALS: BP 165/80; PULSE 57; O2SAT 97
[2020-01-12 12:27] LABS: NT Pro Brain Natriuretic Pep. 200 pg/mL (0-125)
[2020-01-12 12:28] LABS: Troponin I < 0.01 ng/ml (0.00-0.034)
--- NOTE | 2020-01-12 12:32 | CT_ITS ---
PROCEDURE: CT CHEST W CON CLINCAL INDICATION: chest pain Chest pain and low back pain, nausea and vomiting COMPARISON: CR XR CHEST 2V from 01/12/2020 TECHNIQUE: IV Contrast: 75ml Optiray 350 Axial images obtained with sagittal and coronal reformats. All CT scans at the facility use one or more dose reduction, viz: automated exposure control, ma/kV adjustment per patient size (including targeted exams where dose is matched to indication, i.e. head), or iterative reconstruction technique. FINDINGS: HEART AND MEDIASTINAL STRUCTURES: Prior CABG. Artifact is present from cardiac pacemaker device. Atherosclerotic changes of the aorta. No evidence of aortic aneurysm or dissection. No evidence of central pulmonary embolus. No mediastinal or hilar mass or adenopathy LUNGS AND PLEURAL SPACES: There are scattered calcified pulmonary nodules consistent with old granulomatous disease. No lobar consolidation or collapse. No suspicious nodules. No central obstructing lesions. There is mild bronchial thickening and hyperinflation consistent with COPD BONY STRUCTURES: No acute bony abnormalities apparent. UPPER ABDOMEN: Unremarkable. ADDITIONAL FINDINGS: No other significant abnormalities. IMPRESSION: No acute finding. COPD with old granulomatous disease Dictated by: Ralf Urias MD 01/12/2020 13:30 Ralf Urias MD in [facility] 01/12/2020 13:30
--- NOTE | 2020-01-12 12:33 | CT_ITS ---
PROCEDURE: CT ABDOMEN PELVIS W CON CLINICAL INDICATION: pain Abdominal pain with nausea and vomiting COMPARISON: CT ABDPELWO CT abdomen pelvis wo con from 12/04/2017 TECHNIQUE: IV Contrast: 75ML OPTIRAY 350 Oral Contrast None Axial images obtained with sagittal and coronal reformats. All CT scans at the facility use one or more dose reduction, viz: automated exposure control, ma/kV adjustment per patient size (including targeted exams where dose is matched to indication, i.e. head), or iterative reconstruction technique. FINDINGS: LOWER THORAX: No acute finding ABDOMEN & PELVIS: There are post cholecystectomy changes. There is mild dilatation of the intra and extrahepatic biliary radicles. The common bile duct measures 12 mm in diameter and does appear to taper distally with no obvious common calcified stones. Pancreatic duct not dilated. Fat density is noted along the head of the pancreas laterally and could be due to a a lipomatosis lesion not significantly changed the spleen and adrenal glands are unremarkable. No obvious pancreatic mass. There are bilateral renal arterial calcifications. No obvious renal calculi or hydronephrosis or ureteral calculi. No intestinal obstruction or free air. No evidence of appendicitis. There is diverticulosis of the sigmoid colon but no evidence of diverticulitis. There are gas-filled nondistended small bowel loops in the left upper quadrant and mid abdominal region. There is mild thickening of the colon which could be due to nondistention or colitis. The abdominal aorta measures 2.5 x 2.4 cm transverse and AP with atherosclerotic calcification. IMPRESSION: 1. The bowel gas pattern is nonspecific with scattered nondistended gas-filled loops of small bowel. Enteritis is a consideration. There is also thickening of the colon. This could be due to nondistention or colitis. 2. No evidence intestinal obstruction, free air, appendicitis, or diverticulitis. There are few scattered colonic diverticula. 3. Prior cholecystectomy with biliary ectasia Dictated by: Ralf Urias MD 01/12/2020 13:39 Ralf Urias MD in [facility] 01/12/2020 13:39
[2020-01-12 14:44] VITALS: BP 125/68; PULSE 73; O2SAT 94
[2020-01-12 15:50] VITALS: BP 143/64; PULSE 66; RESP 15; TEMP 36.6; O2SAT 99
== END 2020-01-12 15:51 | disposition home or self-care (01) ==
PROVIDERS: Emergency Provider Emergency Medicine; PCP Physician Assistant
DX: R07.89 Other chest pain (principal); M54.5 Low back pain; E87.6 Hypokalemia; Z95.1 Presence of aortocoronary bypass graft; Z95.0 Presence of cardiac pacemaker; I10 Essential (primary) hypertension; I25.10 Atherosclerotic heart disease of native coronary artery without angina pectoris; E78.5 Hyperlipidemia, unspecified; K21.9 Gastro-esophageal reflux disease without esophagitis; J44.9 Chronic obstructive pulmonary disease, unspecified; F17.210 Nicotine dependence, cigarettes, uncomplicated; Z88.5 Allergy status to narcotic agent
CPT/HCPCS: 71046; 71260; 74177; 80048; 82150; 83690; 83880; 84484; 85025; 93005; 96365; 96375; 99283; J2405; Q9967

== ENCOUNTER → 2020-03-03 10:01 | Outpatient (POV) | payer OTHER, SELFPAY ==
[2020-03-03 10:36] VITALS: BP 138/79; PULSE 85; RESP 18; O2SAT 98; BMI 28.4
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
== END ==
PROVIDERS: PCP Nurse Practitioner Family; Visit Provider Clinical Nurse Specialist Family Health
DX: M47.892 Other spondylosis, cervical region (principal); M54.12 Radiculopathy, cervical region
CPT/HCPCS: 99202

== ENCOUNTER → 2020-09-12 13:26 | Outpatient (CLI) | payer OTHER, SELFPAY ==
--- NOTE | 2020-09-12 13:28 | CA_ITS ---
APPROVED REPORT Health Underwriter: Jelena Villeda RVT Laterality: Bilateral Study Quality: Good Indications: CLYDE Risk Factors Hypertension: Hyperlipidemia Smoking Surgery/Intervention Carotid Stent: right Doppler Spectral Velocity Analysis ECA (R) 200.60/19.50 cm/s ECA (L) 206.10/15.30 cm/s dICA (R) 127.20/32.10 cm/s dICA (L) 145.80/28.20 cm/s Moon (R) 115.50/33.10 cm/s Moon (L) 159.90/36.40 cm/s pICA (R) 96.20/28.90 cm/s pICA (L) 196.40/40.00 cm/s dCCA (R) 52.40/19.20 cm/s dCCA (L) 92.50/21.20 cm/s pCCA (R) 97.30/19.20 cm/s pCCA (L) 117.50/19.30 cm/s Vert (R) 32.70/11.60 cm/s Vert (L) 53.00/14.40 cm/s ICA/CCA 2.43 ICA/CCA 2.12 Findings Study suggests less than 20% stenosis of the right internal cartoid artery. Stent visualized in the right internal cartoid artery. Study suggests 50-69% stenosis of the left internal cartoid artery. Antegrade flow seen bilateral vertebral arteries. Conclusion Study suggests less than 20% stenosis of the right internal cartoid artery. Stent visualized in the right internal cartoid artery. Study suggests 50-69% stenosis of the left internal cartoid artery. Antegrade flow seen bilateral vertebral arteries. Electronically signed by : Ralf Urias MD 09/12/2020 15:41:25
== END ==
PROVIDERS: PCP Physician Assistant; Visit Provider Internal Medicine Cardiovascular Disease
DX: I65.23 Occlusion and stenosis of bilateral carotid arteries (principal)
CPT/HCPCS: 93880

== ENCOUNTER → 2020-12-16 12:17 | Outpatient (CLI) | payer OTHER, SELFPAY ==
[2020-12-16 12:47] LABS: Basophils # 0.3 K/mm3 (0-0.2); Eosinophils # 0.2 K/mm3 (0.0-0.4); Hematocrit 43.8 % (37.0-47.0); Hemoglobin 14.1 g/dL (12.2-16.2); Lymphocytes # 3.1 K/mm3 (0.7-4.5); Lymphocytes % 28.5 % (10-50); Mean Corpuscular HGB Conc 32.2 g/dL (31.8-35.4); Mean Corpuscular Hemoglobin 28.6 pg (27.0-31.2); Mean Corpuscular Volume 88.9 fl (81-99); Mean Platelet Volume 13.1 fl (7.4-10.4); Monocytes # 0.5 K/mm3 (0.1-1.0); Monocytes % 4.3 % (1.7-9.3); Neutrophils % 65.1 % (37.0-80.0); Platelet Count 390 K/mm3 (142-424); Red Blood Count 4.92 M/mm3 (4.20-5.40); Red Cell Distribution Width 17.6 % (11.5-17.5); White Blood Count 10.7 K/mm3 (4.8-10.8)
[2020-12-16 13:45] LABS: Alanine Aminotransferase 12 U/L (12-78); Albumin Level 4.1 g/dl (3.5-5.0); Albumin/Globulin Ratio 1.5 (1.1-1.8); Alkaline Phosphatase 130 U/L (38-126); Amylase 131 U/L (30-110); Anion Gap 13.1 mEq/L (5-15); Aspartate Amino Transferase 19 U/L (14-36); Bilirubin,Total 0.4 mg/dl (0.2-1.3); Blood Urea Nitrogen 14 mg/dl (7-17); Calcium 9.5 mg/dl (8.4-10.2); Carbon Dioxide 26 mmol/L (22.0-30.0); Chloride 106 mmol/L (98-107); Chol/HDL Ratio 6.1 (1-3.5); Cholesterol 312 mg/dl (140-200); Estimated Glomerular Filt Rate 57 ml/min (>60); GFR (African American) 69 ML/MIN (>60); Globulin 2.8 g/dL (1.3-3.2); Glucose 99 mg/dl (74-100); HDL Cholesterol 51 mg/dl (40-60); Lipase 393 U/L (23-300); Potassium 4.1 mmoL/L (3.5-5.1); Sodium 141 mmol/L (136-145); Total Protein,Serum 6.9 g/dl (6.3-8.2); Triglycerides 201 mg/dl (30-150); VLDL Cholesterol 40 mg/dL (0-40)
[2020-12-16 13:53] LABS: Thyroid Stimulating Hormone 0.94 uIU/mL (0.465-4.68)
[2020-12-16 14:03] LABS: T4 (Thyroxine) 9.1 ug/dl (5.53-11.0)
[2020-12-16 14:04] LABS: Hemoglobin A1C 5.5 % (4.0-6.0)
[2020-12-16 14:36] LABS: Vitamin B12 305 pg/mL (239-931)
== END ==
PROVIDERS: Visit Provider Physician Assistant
DX: R10.9 Unspecified abdominal pain (principal); R11.2 Nausea with vomiting, unspecified; G62.9 Polyneuropathy, unspecified
CPT/HCPCS: 36415; 80053; 80061; 82150; 82607; 83036; 83690; 84436; 84443; 85025

== ENCOUNTER → 2020-12-24 07:16 | Outpatient (CLI) | payer OTHER, SELFPAY ==
--- NOTE | 2020-12-24 07:17 | CT_ITS ---
PROCEDURE: CT ABDOMEN PELVIS WO CON CLINICAL INDICATION: Pancreatitis Abdominal pain COMPARISON: CT CT ABDOMEN PELVIS W CON from 01/12/2020 TECHNIQUE: Axial images obtained with sagittal and coronal reformats. All CT scans at the facility use one or more dose reduction, viz: automated exposure control, ma/kV adjustment per patient size (including targeted exams where dose is matched to indication, i.e. head), or iterative reconstruction technique. FINDINGS: LOWER THORAX: Prior CABG. Artifact from RV pacemaker ABDOMEN & PELVIS: Prior cholecystectomy. The liver, spleen, adrenal glands, pancreas, has an unremarkable appearance. No stranding of the peripancreatic fat. There are bilateral renal calcifications which are felt to be vascular in nature. No ureteral calculi. No hydronephrosis. Mild fusiform dilatation of the infrarenal abdominal aorta at 2.7 cm. Extensive calcific plaque involves the abdominal aorta with high-grade stenosis involving the abdominal aorta at the L1 level secondary to calcific plaque. Calcific plaque is present also at the ostium of the SMA and may be causing severe stenosis. Consider CT angiogram of the abdominal aorta and mesenteric vessels for further evaluation. No retroperitoneal adenopathy. No evidence of appendicitis. There is colonic diverticulosis but no evidence of diverticulitis. No pelvic mass or abnormal pelvic fluid collection. Degenerative changes lumbar spine IMPRESSION: 1. No CT evidence of acute pancreatitis. 2. Atherosclerotic changes of the abdominal aorta with mild dilatation of the infrarenal abdominal aorta at 2.7 cm. The there is extensive calcific plaque involving the aorta at the L1 level causing moderate to severe stenosis the also with calcific plaque at the ostium of the SMA. Consider CTA for more thorough evaluation. Dictated by: Rlaf Urias MD 12/24/2020 11:41 Ralf Urias MD in [place] 12/24/2020 11:41
== END ==
PROVIDERS: PCP Physician Assistant; Visit Provider Physician Assistant
DX: K85.90 Acute pancreatitis without necrosis or infection, unspecified (principal)
CPT/HCPCS: 74176

== ENCOUNTER → 2020-12-31 12:47 | Outpatient (CLI) | payer OTHER, SELFPAY ==
--- NOTE | 2020-12-31 12:47 | FL_ITS ---
PROCEDURE: FL BARIUM SWALLOW MODIFIED CLINICAL INDICATION: dysphagia Right 1 area is COMPARISON: No exams were available for comparison TECHNIQUE: Patient administered varying consistencies of barium contrast, while viewed in lateral position under real-time fluoroscopy with cine recording. FLUOROSCOPY TIME:1.45 minutes The study was performed in conjunction with speech pathologist. Please see that report & recommendations. FINDINGS: Patient was given varying consistencies of barium. No aspiration or penetration. No significant delay or residual.. IMPRESSION: Unremarkable modified barium swallow. Please see speech pathologist report and recommendations. Dictated by: Ralf Urias MD 01/01/2021 11:39 Ralf Urias MD in [facility] 01/01/2021 11:39
--- NOTE | 2020-12-31 12:47 | US_ITS ---
PROCEDURE: US THYROID CLINICAL INDICATION: thyromegaly COMPARISON: US US THYROID from 12/04/2019 FINDINGS: Right lobe: The right lobe is 4.5 x 1.6 x 2.7 cm. The left lobe is 4.3 x 1.2 x 1.6 cm. The isthmus is thickened at 7 mm. There is a macrolobular mixed nodule within the isthmus which measures 1.7 cm transverse and 0.8 cm AP not significantly changed. There are several small hypoechoic benign-appearing nodules in the right lobe. These are less than 5 mm and not significantly changed. Some of these are cyst. A 5 mm isoechoic nodules present in the lower pole unchanged. In the left lobe in the upper pole there are 2 small cystic areas at approximately 5 mm IMPRESSION: Overall stable appearance of the thyroid gland with no change in the dominant nodule in the isthmus and small bilateral thyroid nodules. Dictated by: Ralf Urias MD 12/31/2020 16:31 Ralf Urias MD in [place] 12/31/2020 16:31
--- NOTE | 2020-12-31 14:22 | HMH.SLMBS2 ---
Speech & Language Evaluation Speech/Language Mod Barium Swallow Start: 12/31/20 14:04 Freq: once Status: Complete Protocol: Document 12/31/20 14:04 MARCELO (Rec: 12/31/20 14:21 MARCELO [id number]) General Information General Current Food Consistancy Regular,Thin Liquids Dentition Edentulous Oxygen Status Room Air Facial Symmetry Symmetrical Patient Orientation Person,Place,Time,Situation Ability to Follow Directions Excellent Communication Ability No Impairment MBS Recommendations Diet Dietary Recommendations Regular,Thin Liquids Mod Barium Swallow Impressions Summary and Impressions Oral Phase Impression No Impairment (WFL) Oral Phase Summary Ms. Moffett was given the following consistencies: thins via straw and open cup, pudding, pureed, regular, mixed, and pill with thin wash . No oral phase impairments noted. Pharyngeal Phase Impression No Impairment (WFL) Pharyngeal Phase Summary No pharyngeal phase impairments noted. Speech/Language MBS Assessment/Goals/Plan Assessment Date of Evaluation: 12/31/20 Evaluation Type Initial Certification Assessment/Problems Dysphagia Does Patient Qualify for Service No Qualify/Failure Comment No overt s/s of dysphagia noted during assessment. Recommendations PHYSICIAN CERTIFICATION: The specified therapy services are required, authorized, and reviewed every 30 days. Diet Recommendations Normal Liquid Type Recommendations Normal/Thin Plan Pt/Guardian verbally ack understanding Yes of dx/prognosis/goals G -code Required No Mod Barium Swallow Setup Exam Setup Radiologist Ralf Urias Level of Consciousness Awake,Alert,Appropriate, Follows Commands Position (degrees) 90 Mod Barium Swallow-Lat View Textures Lateral View Food Presentation Thin Liquid via Cup,Thin Liquid via Straw,Pureed Food- Thick,Barium Tablet,Regular Food,Pudding,Mixed Oral Phase Labial Closure No Impairment (WFL) Bolus Formation Pooling L/R No Impairment (WFL) Bolus Formation under Tongue No Impairment (WFL) Bolus Formation Scattered Loss No Impairment (WFL) Mastication Rotary Chew No Impairment (WFL) Mastication Munching No Impairment (WFL) Mastication Lateralization No Impairment (WFL) Lingual Movement No Impairment (WFL) Residue Clearing No Imp
== END ==
PROVIDERS: PCP Physician Assistant; Visit Provider Physician Assistant
DX: R13.10 Dysphagia, unspecified (principal); E01.0 Iodine-deficiency related diffuse (endemic) goiter
CPT/HCPCS: 70371; 76536; 92611

== ENCOUNTER 2021-01-07 11:31 | Emergency (ER) | payer OTHER, SELFPAY ==
[2021-01-07 11:33] VITALS: BP 190/82; PULSE 74; RESP 18; TEMP 37.1; O2SAT 99; BMI 28.1
--- NOTE | 2021-01-07 12:33 | XR_ITS ---
PROCEDURE: XR CHEST PORTABLE CLINICAL HISTORY: cardiac work up COMPARISON: CR XR CHEST 2V from 06/12/2019 CR XR CHEST PORTABLE from 07/17/2019 CR XR CHEST 2V from 01/12/[address] CHEST W CON from 01/12/2020 FINDINGS: Prior CABG with bipolar pacemaker present from left subclavian approach with leads in the region the right atrium and right ventricle. Borderline cardiomegaly without failure. The lungs are clear without infiltrates, suspicious nodules, or pleural effusions. No acute bony abnormalities. IMPRESSION: No acute findings. Dictated by: Ralf Urias MD 01/07/2021 14:13 Ralf Urias MD in [place] 01/07/2021 14:13
[2021-01-07 12:41] LABS: Basophils # 0.1 K/mm3 (0-0.2); Basophils % 0.5 % (0.1-2.0); Eosinophils # 0.1 K/mm3 (0.0-0.4); Eosinophils % 1.3 % (0.1-12.0); Hematocrit 40.6 % (37.0-47.0); Hemoglobin 13.3 g/dL (12.2-16.2); Lymphocytes # 2.5 K/mm3 (0.7-4.5); Lymphocytes % 26.6 % (10-50); Mean Corpuscular HGB Conc 32.7 g/dL (31.8-35.4); Mean Corpuscular Hemoglobin 29.2 pg (27.0-31.2); Mean Corpuscular Volume 89.3 fl (81-99); Monocytes # 0.5 K/mm3 (0.1-1.0); Monocytes % 4.8 % (1.7-9.3); Neutrophils # 6.3 K/mm3 (1.8-7.8); Neutrophils % 66.9 % (37.0-80.0); Platelet Count 381 K/mm3 (142-424); Potassium 3.9 mmoL/L (3.5-5.1); Red Blood Count 4.54 M/mm3 (4.20-5.40); Red Cell Distribution Width 14.3 % (11.5-17.5); Sodium 142 mmol/L (136-145); White Blood Count 9.4 K/mm3 (4.8-10.8)
[2021-01-07 12:42] LABS: Chloride 102 mmol/L (98-107)
--- NOTE | 2021-01-07 12:42 | ECG_ITS ---
APPROVED REPORT Exam: Resting ECG HR:70 bpm ECG Measurements Heart Rate 70 AXES MN 166 P 80 QRSd 140 QRS 25 QT 422 T 56 QTc 455 Conclusion Electronic atrial pacemaker Right bundle branch block Abnormal ECG Electronically signed by : Dima Weston MD 01/08/2021 17:35:42
[2021-01-07 12:44] LABS: Alanine Aminotransferase 14 U/L (12-78); Albumin/Globulin Ratio 1.2 (1.1-1.8); Alkaline Phosphatase 109 U/L (38-126); Anion Gap 13.9 mEq/L (5-15); Aspartate Amino Transferase 19 U/L (14-36); Bilirubin,Total 0.4 mg/dl (0.2-1.3); Blood Urea Nitrogen 12 mg/dl (7-17); Carbon Dioxide 30 mmol/L (22.0-30.0); Creatinine Clearance Estimated 85 mL/min (50-200); Estimated Glomerular Filt Rate 57 ml/min (>60); GFR (African American) 69 ML/MIN (>60); Globulin 3.3 g/dL (1.3-3.2); Total Protein,Serum 7.3 g/dl (6.3-8.2)
[2021-01-07 12:45] LABS: Calcium 9.8 mg/dl (8.4-10.2); Glucose 122 mg/dl (74-100)
[2021-01-07 12:57] LABS: Troponin I < 0.01 ng/ml (0.00-0.034)
--- NOTE | 2021-01-07 13:02 | HMH.EDGENADL ---
ED Disposition Clinical Impression: Cervical radiculopathy, Essential hypertension Disposition: Home, Self-Care Condition on Discharge: Good Instructions: DI for High Blood Pressure, DI for Cervical Radiculopathy Additional Instructions: [place] as needed for pain. Take your blood pressure twice a day and record it, take results to your primary care provider. Follow-up with your primary care provider in the office in 2 to 3 days. Prescriptions: Hydrocod/Acet 5/325 mg [[place] 5/325mg tablet] 1 tab PO Q6HP PRN #10 tab PRN Reason: Pain Transmission Status: Received by [id number] Referrals: Alanna Cassidy PA [Primary Care Provider] - - Critical Care Critical Care Time: No Attestation: On 01/07/21, the high probability of a clinically significant, sudden or life threatening deterioration of the following system(s) required my full and direct attention, intervention and personal management. The time I documented below is in addition to time spent performing reported procedures but includes the following listed in this critical care notation. Medical Decision Making - Paul Inquiry Pt receiving controlled substance: Yes Paul was queried for this patient: Yes ([place] prescription 8/7, 10 tabs) Risks and benefits of using a controlled substance: were discussed with pt by me Vital Signs: 01/07/21 11:33 01/07/21 14:37 Temperature 98.7 F 98.7 F Temperature Source Oral Oral Pulse Rate 77 Pulse Rate [Left Radial] 74 Respiratory Rate 18 18 Blood Pressure 200/67 H Blood Pressure [Right Arm] 190/82 H Blood Pressure Mean [Right Arm] 118 Blood Pressure Source Automatic Cuff Blood Pressure Source [Right Arm] Automatic Cuff Blood Pressure Position Sitting Blood Pressure Position [Right Arm] Sitting 02 Sat by Pulse Oximetry 99 Oxygen Delivery Method Room Air Room Air - Lab Data Lab Results 01/07/21 11:55: WBC 9.4, RBC 4.54, Hgb 13.3, Hct 40.6, MCV 89.3, MCH 29.2, MCHC 32.7, RDW 14.3, Plt Count 381, MPV 8.0, Neut % (Auto) 66.9, Lymph % (Auto) 26.6, [place] % (Auto) 4.8, Eos % (Auto) 1.3, Baso % (Auto) 0.5, Neut # (Auto) 6.3, Lymph # (Auto) 2.5, [place] # (Auto) 0.5, Eos # (Auto) 0.1, Baso # (Auto) 0.1 01/07/21 11:55: Sodium 142, Potassium 3.9, Chloride 102, Carbon Dioxide 30, Anion Gap 13.9, BUN 12, Creatinine 1.00, Estimated Creat Clear 85, Estimated GFR 57 L, Est GFR ( Amer) 69, Glucose 122 H, Calcium 9.8, Total Bilirubin 0.4, AST 19, ALT 14, Alkaline Phosphatase 109, Troponin I < 0.01, Total Protein 7.3, Albumin 4.0, Globulin 3.3 H, Albumin/Globulin Ratio 1.2 Result diagrams: 01/07/21 11:55 01/07/21 11:55 Orders (Tests/Meds): ORDERS Category Date Time Status Rapid PCR Covid and Flu A/B Stat Lab 01/07/21 12:33 Ordered 12-lead EKG Request [ECG Request by /Bhavin] Stat Y 01/07/21 12:45 Ordered - ECG Data Tracing #1 EKG interpreted by Abraham Andrade MD: Rhythm: Electronic atrial pacemaker Rate: 70 [place]: normal Ectopy: none Conduction: Right bundle branch block ST Segment Changes: none T Wave Changes: none Q Waves: none No evidence of acute ischemia or injury Prior electrocardiagrams reviewed. No change from prior tracings. - Physician Consults Physician Consulted: Angel Time: 13:47 Reason -: Pt condition Comment/Response: Requested patient be given a prescription for pain medication. No change in blood pressure medication at this time. Advised patient to check her blood pressure at home and keep a record daily and follow-up in their office in a couple of days. General Adult HPI - General Chief complaint: PAIN Stated complaint: BP high Time Seen by Provider: 01/07/21 13:17 Mode of Arrival: Ambulatory Limitations: No Limitations Description of Symptoms (Recalled from ER Triage Doc. by RN): c/o neck pain stating this is causing her bp to increase. - History of Present Illness HPI narrative: States that she has had pain in her neck going in
--- NOTE | 2021-01-07 13:33 | PC.NURSE ---
pt refused covid swab, ER notified
[2021-01-07 14:37] VITALS: BP 200/67; PULSE 77; RESP 18; TEMP 37.1; O2SAT 97
== END 2021-01-07 14:38 | disposition home or self-care (01) ==
PROVIDERS: Emergency Provider Emergency Medicine; PCP Physician Assistant
DX: M54.12 Radiculopathy, cervical region (principal); I10 Essential (primary) hypertension; E78.5 Hyperlipidemia, unspecified; J44.9 Chronic obstructive pulmonary disease, unspecified; K21.9 Gastro-esophageal reflux disease without esophagitis; I25.10 Atherosclerotic heart disease of native coronary artery without angina pectoris; Z95.0 Presence of cardiac pacemaker; F17.210 Nicotine dependence, cigarettes, uncomplicated
CPT/HCPCS: 71045; 80053; 84484; 85025; 93005; 99283

== ENCOUNTER 2021-03-07 13:21 | Emergency (ER) | payer OTHER, SELFPAY ==
[2021-03-07 13:22] VITALS: BP 188/88; PULSE 78; RESP 20; TEMP 36.8; O2SAT 98; BMI 27.2
--- NOTE | 2021-03-07 13:37 | XR_ITS ---
PROCEDURE INFORMATION: Exam: XR Chest Exam date and time: 03/07/2021 1:37 PM Age: 60 years old Clinical indication: Chest wall pain; Prior surgery; Surgery date: 6+ months; Surgery type: Open heart; Additional info: Cough and not feeling well-- covid test pending TECHNIQUE: Imaging protocol: XR of the chest. Views: 4 or more views. COMPARISON: CR XR CHEST PORTABLE 01/07/2021 12:54 PM FINDINGS: Tubes, catheters and devices: Stable transvenous pacemaker leads Lungs: Hyperexpanded lung alberto consistent with COPD Pleural spaces: Unremarkable. No pleural effusion. No pneumothorax. Heart/Mediastinum: Stable cardiac silhouette Bones/joints: Median sternotomy Other findings: The chest x-ray is mislabeled according to side IMPRESSION: Hyperexpanded lung alberto consistent with COPD
[2021-03-07 13:41] LABS: Basophils # 0.1 K/mm3 (0-0.2); Basophils % 0.9 % (0.1-2.0); Eosinophils # 0.1 K/mm3 (0.0-0.4); Eosinophils % 0.6 % (0.1-12.0); Hematocrit 44.2 % (37.0-47.0); Hemoglobin 14.4 g/dL (12.2-16.2); Lymphocytes # 2.5 K/mm3 (0.7-4.5); Lymphocytes % 20.4 % (10-50); Mean Corpuscular HGB Conc 32.5 g/dL (31.8-35.4); Mean Corpuscular Hemoglobin 29.2 pg (27.0-31.2); Mean Corpuscular Volume 89.9 fl (81-99); Mean Platelet Volume 7.7 fl (7.4-10.4); Monocytes # 0.7 K/mm3 (0.1-1.0); Monocytes % 5.5 % (1.7-9.3); Neutrophils # 8.8 K/mm3 (1.8-7.8); Neutrophils % 72.7 % (37.0-80.0); Platelet Count 421 K/mm3 (142-424); Red Blood Count 4.92 M/mm3 (4.20-5.40); Red Cell Distribution Width 14.7 % (11.5-17.5); White Blood Count 12.2 K/mm3 (4.8-10.8)
[2021-03-07 13:45] LABS: Chloride 102 mmol/L (98-107); Sodium 143 mmol/L (136-145)
[2021-03-07 13:46] LABS: Potassium 3.1 mmoL/L (3.5-5.1)
[2021-03-07 13:48] LABS: Alanine Aminotransferase 23 U/L (12-78); Albumin Level 4.1 g/dl (3.5-5.0); Albumin/Globulin Ratio 1.1 (1.1-1.8); Alkaline Phosphatase 121 U/L (38-126); Amylase 78 U/L (30-110); Anion Gap 12.1 mEq/L (5-15); Aspartate Amino Transferase 21 U/L (14-36); Bilirubin,Total 0.8 mg/dl (0.2-1.3); Blood Urea Nitrogen 13 mg/dl (7-17); Calcium 10.3 mg/dl (8.4-10.2); Carbon Dioxide 32 mmol/L (22.0-30.0); Creatinine Clearance Estimated 82 mL/min (50-200); Estimated Glomerular Filt Rate 57 ml/min (>60); GFR (African American) 69 ML/MIN (>60); Globulin 3.6 g/dL (1.3-3.2); Glucose 125 mg/dl (74-100); Lipase 57 U/L (23-300); Total Protein,Serum 7.7 g/dl (6.3-8.2)
--- NOTE | 2021-03-07 13:51 | PC.NURSE ---
spoke with pt's son he states pt tested + for covid 02/27
--- NOTE | 2021-03-07 13:56 | HMH.EDGENADL ---
ED Disposition Clinical Impression: COVID-19 virus infection, Hypokalemia Disposition: Home, Self-Care Condition on Discharge: Fair Instructions: DI for Hypokalemia, DI for COVID-19 (Suspected or Confirmed ) Additional Instructions: Rest, drink plenty of fluids. COVID-19 Isolation: Isolate yourself for a MINIMUM of 10 days from onset of symptoms: What to do: Monitor your symptoms. If you have an emergency warning sign (including trouble breathing), seek emergency medical care immediately. Stay in a separate room from other household members, if possible. Use a separate bathroom, if possible. Avoid contact with other members of the household and pets. Don?t share personal household items, like cups, towels, and utensils. Wear a mask when around other people if able. You can be around others AFTER: 10 days since symptoms first appeared AND 24 hours with no fever without the use of fever-reducing medications AND Other symptoms of COVID-19 are improving Prescriptions: Potassium Chloride [K-Tab ER 20 mEq] 20 meq PO DAILY #7 tab Transmission Status: Received by [id number] Benzonatate [Tessalon Perle 100mg Cap] 100 mg PO TIDP PRN #20 cap PRN Reason: Cough Transmission Status: Pending to [id number] Referrals: Rasta Ortiz MD [Primary Care Provider] - - Critical Care Critical Care Time: No Attestation: On 03/07/21, the high probability of a clinically significant, sudden or life threatening deterioration of the following system(s) required my full and direct attention, intervention and personal management. The time I documented below is in addition to time spent performing reported procedures but includes the following listed in this critical care notation. Medical Decision Making - Medical Records Medical records reviewed: Yes: I reviewed the patient's medical records. MR Comment: Emergency department note from 02/26/2021 visit to [facility] emergency department obtained by fax. Reviewed. Patient diagnosed with bronchitis, Covid test returned positive. Reviewed prescriptions recently filled. Tessalon was filled on 02/26/2021 which would correlate with that visit. Last PCP visit was on 02/11/2021, which was prior to the diagnosis of Covid. - Paul Inquiry Pt receiving controlled substance: No Vital Signs: 03/07/21 13:22 03/07/21 15:14 Temperature 98.2 F Temperature Source Oral Pulse Rate 73 Pulse Rate [Radial] 78 Respiratory Rate 20 18 Blood Pressure 156/77 H Blood Pressure [Right Arm] 188/88 H Blood Pressure Mean 101 Blood Pressure Mean [Right Arm] 121 Blood Pressure Position [Right Arm] Sitting 02 Sat by Pulse Oximetry 98 99 Oxygen Delivery Method Room Air - Lab Data Lab Results 03/07/21 13:35: WBC 12.2 H, RBC 4.92, Hgb 14.4, Hct 44.2, MCV 89.9, MCH 29.2, MCHC 32.5, RDW 14.7, Plt Count 421, MPV 7.7, Neut % (Auto) 72.7, Lymph % (Auto) 20.4, [place] % (Auto) 5.5, Eos % (Auto) 0.6, Baso % (Auto) 0.9, Neut # (Auto) 8.8 H, Lymph # (Auto) 2.5, [place] # (Auto) 0.7, Eos # (Auto) 0.1, Baso # (Auto) 0.1 03/07/21 13:35: Sodium 143, Potassium 3.1 L, Chloride 102, Carbon Dioxide 32 H, Anion Gap 12.1, BUN 13, Creatinine 1.00, Estimated Creat Clear 82, Estimated GFR 57 L, Est GFR ( Amer) 69, Glucose 125 H, Calcium 10.3 H, Total Bilirubin 0.8, AST 21, ALT 23, Alkaline Phosphatase 121, Troponin I < 0.01, Total Protein 7.7, Albumin 4.1, Globulin 3.6 H, Albumin/Globulin Ratio 1.1, Amylase 78, Lipase 57 03/07/21 13:45: SARS-CoV-2 (PCR) Detected A, Influenza A Untype (PCR) Not detected, Influenza Type B (PCR) Not detected 03/07/21 15:05: Urine Color Yellow, Urine Appearance Clear, Urine pH 8.0, Ur Specific [place] 1.020, Urine Protein Negative, Urine Glucose (UA) Negative, Urine Ketones Negative, Urine Blood Negative, Urine Nitrate Negative, Urine Bilirubin Negative, Urine Urobilinogen 0.2, Ur Leukocyte Esterase Negative, Urine RBC None, Urine WBC None, Ur Squamous Ep
--- NOTE | 2021-03-07 13:58 | ECG_ITS ---
APPROVED REPORT Exam: Resting ECG HR:70 bpm ECG Measurements Heart Rate 70 AXES NH 148 P 48 QRSd 150 QRS 69 QT 418 T 23 QTc 451 Conclusion Electronic atrial pacemaker Right bundle branch block Abnormal ECG Electronically signed by : Dima Weston MD 03/08/2021 08:46:36
[2021-03-07 14:00] LABS: Troponin I < 0.01 ng/ml (0.00-0.034)
[2021-03-07 14:18] LABS: Coronavirus 19, PCR Detected (NotDetected); Influenza A, PCR Not Detected (NotDetected); Influenza B, PCR Not Detected (NotDetected)
[2021-03-07 15:14] VITALS: BP 156/77; PULSE 73; RESP 18; O2SAT 99
[2021-03-07 15:20] LABS: Microscopic, Urine URINE MICROSCOPIC (MICROSCOPIC)
[2021-03-07 15:22] LABS: Appearance,Urine CLEAR (Clear); Bilirubin,Urine Negative (Negative); Blood, Urine Negative (Negative); Color,Urine YELLOW (Yellow); Glucose,Urine (UA) Negative (Negative); Ketones,Urine Negative (Negative); Leukocyte Esterase,Urine Negative (Negative); Nitrate,Urine Negative (Negative); Protein,Urine Negative (Negative); Urobilinogen,Urine 0.2 EU/dl (0.2)
[2021-03-07 15:50] VITALS: BP 152/88; PULSE 88; RESP 18; TEMP 36.6; O2SAT 98
== END 2021-03-07 15:52 | disposition home or self-care (01) ==
PROVIDERS: Emergency Provider Emergency Medicine; PCP Emergency Medicine
DX: U07.1 COVID-19 (principal); I10 Essential (primary) hypertension; K21.9 Gastro-esophageal reflux disease without esophagitis; Z79.899 Other long term (current) drug therapy
CPT/HCPCS: 71045; 80053; 81001; 82150; 83690; 84484; 85025; 93005; 99283; C9803; U0003; U0005

== ENCOUNTER → 2021-03-17 09:10 | Outpatient (CLI) | payer OTHER, SELFPAY ==
--- NOTE | 2021-03-17 09:12 | CA_ITS ---
APPROVED REPORT Track Laying Equipment Operator: Jelena Villeda RVT Laterality: Bilateral Study Quality: Good Indications: elpidio Risk Factors Hypertension: Hyperlipidemia Smoking Surgery/Intervention Carotid Stent: right Doppler Spectral Velocity Analysis ECA (R) 146.50/19.20 cm/s ECA (L) 231.10/40.50 cm/s dICA (R) 66.30/13.90 cm/s dICA (L) 132.60/26.70 cm/s Moon (R) 101.60/26.70 cm/s Moon (L) 143.30/32.10 cm/s pICA (R) 88.80/23.50 cm/s pICA (L) 201.10/37.20 cm/s dCCA (R) 83.40/17.10 cm/s dCCA (L) 89.80/17.10 cm/s pCCA (R) 105.90/18.20 cm/s pCCA (L) 103.70/19.20 cm/s Vert (R) 31.00/12.80 cm/s Vert (L) 125.60/21.80 cm/s ICA/CCA 1.22 ICA/CCA 2.24 Findings Study suggests less than 20% stenosis of the right internal cartoid artery. Stent visualized in the right internal cartoid artery. Study suggests 50-69% stenosis of the left internal cartoid artery. Antegrade flow seen bilateral vertebral arteries. Conclusion Study suggests less than 20% stenosis of the right internal cartoid artery. Stent visualized in the right internal cartoid artery. Study suggests 50-69% stenosis of the left internal cartoid artery. Antegrade flow seen bilateral vertebral arteries. Electronically signed by : Ralf Urias MD 03/17/2021 18:23:14
== END ==
PROVIDERS: PCP Emergency Medicine; Visit Provider Internal Medicine Cardiovascular Disease
DX: R06.00 Dyspnea, unspecified (principal); I65.23 Occlusion and stenosis of bilateral carotid arteries; I25.10 Atherosclerotic heart disease of native coronary artery without angina pectoris; I11.9 Hypertensive heart disease without heart failure; E78.5 Hyperlipidemia, unspecified; Z72.0 Tobacco use; Z95.0 Presence of cardiac pacemaker
CPT/HCPCS: 93880

== ENCOUNTER → 2021-03-25 15:06 | Outpatient (CLI) | payer OTHER, SELFPAY ==
--- NOTE | 2021-03-25 15:06 | CT_ITS ---
PROCEDURE: CT CERVICAL SPINE WO CON CLINICAL INDICATION: neck pain COMPARISON: CT CT CERVICAL SPINE WO CON from 07/13/2019 TECHNIQUE: Axial images obtained with sagittal and coronal reformats. All CT scans at the facility use one or more dose reduction, viz: automated exposure control, ma/kV adjustment per patient size (including targeted exams where dose is matched to indication, i.e. head), or iterative reconstruction technique. Axial spiral CT scanning performed of the cervical spine beginning at the base of the skull and continuing to the upper T-spine. 3-D multiplanar reconstruction with 3-D manipulation of volumetric data set in image rendering was completed by the radiologist and/or technologist with the supervision of the radiologist on independent workstation. FINDINGS: There is normal alignment. No fracture or dislocation. C2-C3: Unremarkable. C3-C4: Minimal bulging disc. C4-C5: Minimal central disc protrusion versus mild prominence of the posterior longitudinal ligament. Minimal central disc protrusion versus mild prominence of posterior longitudinal ligament similar to the previous exam. C5-C6: Degenerative disc disease with a small broad-based left paracentral and central disc protrusion the. C6-C7: Degenerative disc disease with a broad-based central left paracentral disc osteophyte complex with left lateral recess and foraminal narrowing. Uncovertebral hypertrophy is present contributing to the foraminal narrowing. This did have a similar appearance on the previous exam. C7-T1: Unremarkable. There is diffuse vascular calcification. Right carotid stent is present. IMPRESSION: Multilevel cervical spondylosis. Please see above for detailed description at each level. Overall not significantly changed from 07/13/2019. Dictated by: Ralf Urias MD 03/26/2021 12:22 Ralf Urias MD in [place] 03/26/2021 12:22
== END ==
PROVIDERS: PCP Emergency Medicine; Visit Provider Emergency Medicine
DX: M54.2 Cervicalgia (principal)
CPT/HCPCS: 72125

== ENCOUNTER → 2021-04-24 13:45 | Outpatient (CLI) | payer OTHER, SELFPAY ==
[2021-04-24 14:49] LABS: Barbiturates Screen,Urine Negative ng/ml (<200)
[2021-04-24 14:50] LABS: Benzodiazepines Screen,Urine Positive ng/ml (<200); Cannabinoid Screen,Urine Positive ng/ml (<50)
[2021-04-24 14:51] LABS: Methadone Screen,Urine Negative ng/ml (<300)
[2021-04-24 14:52] LABS: Opiate Screen,Urine Negative ng/ml (<300)
[2021-04-24 14:53] LABS: Phencyclidine Screen,Urine Negative ng/ml (<25)
[2021-04-24 14:56] LABS: Cocaine Screen,Urine Negative ng/ml (<300)
[2021-04-24 21:52] LABS: Amphetamine/Metha Screen,Urine Negative ng/ml (<1000)
== END ==
PROVIDERS: Visit Provider Emergency Medicine
DX: M47.812 Spondylosis without myelopathy or radiculopathy, cervical region (principal)
CPT/HCPCS: 80305

== ENCOUNTER → 2021-06-22 16:00 | Outpatient (CLI) | payer OTHER, SELFPAY ==
[2021-06-22 15:09] LABS: Amphetamine/Metha Screen,Urine Negative ng/ml (<1000)
[2021-06-22 15:10] LABS: Barbiturates Screen,Urine Negative ng/ml (<200)
[2021-06-22 15:11] LABS: Benzodiazepines Screen,Urine Positive ng/ml (<200); Cannabinoid Screen,Urine Positive ng/ml (<50)
[2021-06-22 15:12] LABS: Cocaine Screen,Urine Negative ng/ml (<300)
[2021-06-22 15:13] LABS: Methadone Screen,Urine Negative ng/ml (<300); Opiate Screen,Urine Negative ng/ml (<300)
[2021-06-22 15:14] LABS: Phencyclidine Screen,Urine Negative ng/ml (<25)
== END ==
PROVIDERS: Visit Provider Emergency Medicine
DX: M47.812 Spondylosis without myelopathy or radiculopathy, cervical region (principal)
CPT/HCPCS: 80305

== ENCOUNTER → 2021-08-18 18:54 | Outpatient (CLI) | payer OTHER, SELFPAY ==
[2021-08-18 14:26] LABS: Amphetamine/Metha Screen,Urine Negative ng/ml (<1000)
[2021-08-18 14:27] LABS: Barbiturates Screen,Urine Negative ng/ml (<200)
[2021-08-18 14:28] LABS: Benzodiazepines Screen,Urine Positive ng/ml (<200); Cannabinoid Screen,Urine Positive ng/ml (<50)
[2021-08-18 14:29] LABS: Cocaine Screen,Urine Negative ng/ml (<300)
[2021-08-18 14:30] LABS: Methadone Screen,Urine Negative ng/ml (<300); Opiate Screen,Urine Positive ng/ml (<300)
[2021-08-18 14:31] LABS: Phencyclidine Screen,Urine Negative ng/ml (<25)
== END ==
PROVIDERS: Visit Provider Emergency Medicine
DX: Z79.899 Other long term (current) drug therapy (principal)
CPT/HCPCS: 80305

== ENCOUNTER → 2021-10-13 14:40 | Outpatient (CLI) | payer OTHER, SELFPAY ==
[2021-10-13 14:19] LABS: Amphetamine/Metha Screen,Urine Negative ng/ml (<1000); Barbiturates Screen,Urine Negative ng/ml (<200)
[2021-10-13 14:20] LABS: Benzodiazepines Screen,Urine Positive ng/ml (<200); Cannabinoid Screen,Urine Positive ng/ml (<50)
[2021-10-13 14:21] LABS: Cocaine Screen,Urine Negative ng/ml (<300)
[2021-10-13 14:22] LABS: Methadone Screen,Urine Negative ng/ml (<300); Opiate Screen,Urine Positive ng/ml (<300)
[2021-10-13 14:23] LABS: Phencyclidine Screen,Urine Negative ng/ml (<25)
== END ==
PROVIDERS: PCP Emergency Medicine; Visit Provider Emergency Medicine
DX: F41.9 Anxiety disorder, unspecified (principal)
CPT/HCPCS: 80305

== ENCOUNTER → 2021-11-04 11:00 | Outpatient (CLI) | payer OTHER, SELFPAY ==
--- NOTE | 2021-11-04 | CA_ITS ---
APPROVED REPORT Exam: Pharmacologic Technologist: Karlie Rangel Ht: 5 ft 10 in Wt: 176 lbs BSA: 1.98 m2 HR: 70 bpm BP: 138/65 mmHg Indications: CP Medical History Medications: Amlodipine,,,,, Omeprazole,,,,, Aspirin,,,,, Gabapentin,,,,, Losartan,,,,, HCTZ,,,,, Crestor,,,,, Albuterol,,,,, Famotidine,,,,, Valium,,,,, BuPROPION,,,,, Nitroglycerin,,,,, Stress Test Details Test: LEXISCAN HR Resting HR: 73 bpm Max Heart Rate (APMHR): 160.779030 bpm Max HR Achieved: 98 bpm Target HR (85% APMHR): 136.345152 bpm % of APMHR: 61.25 Recovery HR: 74 bpm BP Resting BP: 138/65 mmHg Max BP: 148/74 mmHg Recovery BP: 148.0/74.0 mmHg ECG Clinical Reason for Termination: Completed protocol Exercise duration: 04:03 min Highest Stage Achieved: Exercise capacity: 1.0 METs Stress ECG Conclusion Mild chest tightness and SOA No ectopy No significant ST-T changes. unremarkable Lexiscan stress myoview images reported separately. Electronically signed by : Davis Shore MD 11/04/2021 19:01:16
--- NOTE | 2021-11-04 11:01 | CA_ITS ---
FINAL REPORT TECHNIQUE: Color Doppler, duplex Doppler and lofton scale sonography of the bilateral neck arterial vasculature was performed. Velocities were measured in the carotid arteries. Stenosis evaluation based on the validated velocity criteria. CLINICAL HISTORY: elpidio, smoker, HTN, HLD, stent FINDINGS: The peak systolic velocity of the right common carotid artery is 87 cm/s. The peak systolic velocity of the right internal carotid artery is 107 cm/s and end diastolic velocity 36 cm/s. A mild amount of plaque is present. The right external carotid artery is patent. The right vertebral artery is patent with antegrade flow. The peak systolic velocity of the left common carotid artery is 107 cm/s. The peak systolic velocity of the left internal carotid artery is 171 cm/s and end diastolic velocity 40 cm/s. A mild amount of plaque is present. The left external carotid artery is patent.The left vertebral artery is patent with antegrade flow. IMPRESSION: Less than 50% bilateral carotid stenoses. Bilateral patent vertebral arteries with antegrade flow. If indicated, CTA or MRA could further evaluate. Reviewed, Interpreted and Dictated by Emmanuel Dee III, MD Transcribed by Mariana Chi Authenticated and [facility]
--- NOTE | 2021-11-04 11:47 | NM_ITS ---
APPROVED REPORT Exam: Nuclear Stress Test Indication: CABG, HTN, HYPERLIPIDEMIA, OBESITY, TOB USE, FM HX., C.P., SOB, PACE MAKER Patient Location: Outpatient Stress Tech: Karlie Rangel NM Tech:PONCHO Chavis RT (R)(N)(M) Ht: 5 ft 10 in Wt: 170 lbs Bra Size: D HR: 73 bpm BP: 138/65 mmHg BSA: 1.95 m2 TID: 1.39 BMI: 24.3 Procedure: Patient received a 0.4 mg of intravenous Lexiscan, resting heart rate 73 bpm, resting blood pressure 138/65 mmHg, with Lexiscan maximum heart rate achived was 89 bpm which is Less than 85 % of the maximum predicted heart rate and blood pressure was 126/66 mmHg. With Lexiscan, patient denied any complaint of chest pain. Electrocardiogram Resting electrocardiogram shows sinus rhythm right bundle branch block, with Lexiscan there is less than 1.[address] segment depression noted from the baseline EKG. EKG portion of the Lexiscan is nondiagnostic. Cardiac Stress and Resting SPECT Images: Cardiac Stress and Resting SPECT images were obtained using technetium 99m Myoview 31.7 mCi stress and 10.20 mCi at rest. Gated SPECT for analysis of segmental wall motion and calculation of the ejection fraction also done. Prone images were also obtained. Cardiac stress and rest SPECT may show uniform myocardial activity without segmental perfusion abnormality, however there is transient ischemic dilatation of the left ventricle seen raising the concerns for presence of balanced ischemia and multivessel coronary artery disease. Computer derived ejection fraction is 64% with no regional wall motion abnormality, right ventricle is mildly enlarged with normal contractility. Conclusion: 1. The EKG portion of the Lexiscan is nondiagnostic. 2. No scintigraphic evidence of reversible ischemia seen, computer derived ejection fraction is 64% with no regional wall motion abnormality, right ventricle is mildly enlarged with normal contractility. There is transient ischemic dilatation of the left ventricle seen raising the concerns for presence of balanced ischemia and multivessel coronary artery disease. 3. Abnormal Lexiscan Myoview study. Electronically signed by : Davis Shore MD 11/04/2021 19:03:57
[2021-11-04 12:21] LABS: Chloride 104 mmol/L (98-107); Potassium 4.1 mmoL/L (3.5-5.1); Sodium 139 mmol/L (136-145)
[2021-11-04 12:23] LABS: Alanine Aminotransferase 20 U/L (12-78); Aspartate Amino Transferase 32 U/L (14-36); Bilirubin,Unconjugated 0.4 mg/dL (0.0-1.1); Blood Urea Nitrogen 22 mg/dl (7-17); Estimated Glomerular Filt Rate 35 ml/min (>60); GFR (African American) 43 ML/MIN (>60)
[2021-11-04 12:24] LABS: Albumin Level 4.4 g/dl (3.5-5.0); Alkaline Phosphatase 128 U/L (38-126); Anion Gap 10.1 mEq/L (5-15); Bilirubin,Direct 0.2 mg/dl (0.0-0.4); Bilirubin,Indirect 0.4 mg/dL (0.0-0.9); Bilirubin,Total 0.6 mg/dl (0.2-1.3); Calcium 10.1 mg/dl (8.4-10.2); Carbon Dioxide 29 mmol/L (22.0-30.0); Chol/HDL Ratio 4.5 (1-3.5); Cholesterol 205 mg/dl (140-200); Glucose 114 mg/dl (74-100); HDL Cholesterol 46 mg/dl (40-60); Magnesium 1.9 mg/dl (1.6-2.3); Total Protein,Serum 7.5 g/dl (6.3-8.2); Triglycerides 176 mg/dl (30-150); VLDL Cholesterol 35 mg/dL (0-40)
[2021-11-04 12:40] LABS: Direct LDL Cholesterol 97.57 mg/dL (100-129)
[2021-11-04 12:55] LABS: Thyroid Stimulating Hormone 0.71 uIU/mL (0.465-4.68)
[2021-11-04 19:58] LABS: Free T4 (Free Thyroxine) 0.99 ng/dl (0.78-2.19)
== END ==
PROVIDERS: PCP Emergency Medicine; Visit Provider Physician Assistant
DX: Z01.810 Encounter for preprocedural cardiovascular examination (principal); R06.00 Dyspnea, unspecified; I25.118 Atherosclerotic heart disease of native coronary artery with other forms of angina pectoris; I10 Essential (primary) hypertension; E78.5 Hyperlipidemia, unspecified; G62.9 Polyneuropathy, unspecified; E66.3 Overweight; M47.812 Spondylosis without myelopathy or radiculopathy, cervical region; Z72.0 Tobacco use
CPT/HCPCS: 78452; 80048; 80061; 80076; 83735; 84439; 84443; 93017; 93880; A9502; J2785

== ENCOUNTER 2021-12-09 08:21 | Day surgery (SDC) | payer OTHER, SELFPAY ==
[2021-12-09] VITALS (12 sets, daily range): BP systolic 114–180; BP diastolic 52–95; PULSE 70–81; RESP 18–20; O2SAT 95–99; BMI 25.1
--- NOTE | 2021-12-09 | IR_ITS ---
APPROVED REPORT Patient Location: Outpatient PROCEDURES Left heart catheterization Left ventriculogram Selective coronary angiogram Left internal mammary angiography Selective engagement of the saphenous vein graft to the circumflex artery Drug-eluting stent deployment to the proximal saphenous vein graft supplying the circumflex artery INDICATION Coronary artery disease, History of coronary bypass surgery, Accelerated angina pectoris Informed consent was obtained prior to the procedure. COMPLICATIONS None Estimated Blood Loss: Less than 10 mls TECHNIQUE One percent lidocaine used to anesthetize the right groin. The right femoral artery was accessed via the Seldinger technique and a 5 Ecuadorean sheath was placed in the right femoral artery. A JL 4, JR4 catheter were used to perform left heart catheterization, left ventriculogram selective coronary angiography as well as selective engagement of the 1 vein graft and the left internal mammary artery. At the end the diagnostic angiogram therapeutic heparin was administered and the 5 Ecuadorean sheath was exchanged for a 6 Ecuadorean sheath. A JR4 guide catheter was placed in the saphenous vein graft followed by a Choice PT extra-support wire. A 5 mm x 30 mm resolute Delvin stent was deployed in the proximal segment at 24 adin reducing the critical calcific eccentric stenosis to 0%. THOMAS-3 flow was present down the vein graft before and after the procedure. At the end the procedure the apparatus was removed the groin is reprepped closure change sheath was removed good hemostasis was achieved using Perclose device patient was transferred to the postop putting in stable condition ANGIOGRAPHIC RESULTS The left main artery Is diffusely small and appears to have a 30 to 40% distal stenosis The left anterior descending artery Has a severe proximal 90% stenosis followed by a stent which has 80% concentric in-stent restenosis. There is evidence of competitive flow from the left internal mammary artery distally The circumflex artery Is a dominant vessel and has an ostial concentric 90% stenosis. This does give rise to a large terminal obtuse marginal artery which is widely patent. The right coronary artery Small nondominant and patent The NUÑEZ ventriculogram reveals Hyperdynamic 70% The left ventricular end-diastolic pressure 20 mmHg ZELAYA patent LAD Saphenous vein graft to dominant circumflex artery has ostial 30% stenosis with severe vascular ectasia followed by an eccentric napkin ring calcified stenosis greater than 90%. The graft appears to touchdown on a ramus intermedius or high first obtuse marginal artery and then skips to a second obtuse marginal artery which then backfills the terminal obtuse marginal artery IMPRESSION Coronary artery disease as described above Successful stenting of a large saphenous vein graft supplying first and second obtuse marginal artery reducing the critical stenosis to 0% Hyperdynamic ventricle Borderline elevated LVEDP PLAN 1. Dual antiplatelet therapy 2. LDL less than 55 to be achieved with high intensity statin 3. Cardiac rehabilitation 4. Avoidance of tobacco products 5. Risk factor modification Electronically signed by : Prosper Dyson MD 12/10/2021 12:23:06
[2021-12-09 08:33] LABS: Coronavirus 19, PCR Not Detected (NotDetected); Influenza A, PCR Not Detected (NotDetected); Influenza B, PCR Not Detected (NotDetected)
[2021-12-09 08:48] LABS: Basophils # 0.1 K/mm3 (0-0.2); Basophils % 1.2 % (0.1-2.0); Eosinophils # 0.2 K/mm3 (0.0-0.4); Eosinophils % 2.1 % (0.1-12.0); Hematocrit 42.8 % (37.0-47.0); Hemoglobin 13.9 g/dL (12.2-16.2); Lymphocytes # 2.4 K/mm3 (0.7-4.5); Lymphocytes % 23.4 % (10-50); Mean Corpuscular HGB Conc 32.6 g/dL (31.8-35.4); Mean Corpuscular Hemoglobin 29.7 pg (27.0-31.2); Mean Corpuscular Volume 91.2 fl (81-99); Mean Platelet Volume 6.4 fl (7.4-10.4); Monocytes # 0.6 K/mm3 (0.1-1.0); Monocytes % 6.1 % (1.7-9.3); Neutrophils % 67.2 % (37.0-80.0); Platelet Count 414 K/mm3 (142-424); Red Blood Count 4.69 M/mm3 (4.20-5.40); Red Cell Distribution Width 13.7 % (11.5-17.5); White Blood Count 10.3 K/mm3 (4.8-10.8)
[2021-12-09 08:56] LABS: Anion Gap 9.7 mEq/L (5-15); Blood Urea Nitrogen 27 mg/dl (7-17); Calcium 10.1 mg/dl (8.4-10.2); Carbon Dioxide 30 mmol/L (22.0-30.0); Chloride 104 mmol/L (98-107); Creatinine Clearance Estimated 44 mL/min (50-200); Estimated Glomerular Filt Rate 31 ml/min (>60); GFR (African American) 37 ML/MIN (>60); Glucose 116 mg/dl (74-100); Potassium 3.7 mmoL/L (3.5-5.1); Sodium 140 mmol/L (136-145)
[2021-12-09 12:48] LABS: CATHL Activated Clotting Time 319 SEC (74-125)
--- NOTE | 2021-12-09 14:58 | SUR.PHASEII ---
Mariana Pradhan with pharmacy at bedside going over pt's new prescription for Brilinta.
--- NOTE | 2021-12-09 15:51 | HMH.PHACLD ---
Jelena Moffett has received discharge medication counseling on the following medications: PATIENT IS CURRENTLY TAKING CRESTOR 40 MG HS, METOPROLOL SUCCINATE 25 MG DAILY, LOSARTAN 100 MG DAILY, AND ASPIRIN 81 MG DAILY. MD ADDING BRILINTA 90 MG BID.
== END 2021-12-09 15:15 | disposition home or self-care (01) ==
LOC: CATHLAB 08:24
PROVIDERS: Nurse Practitioner; PCP Emergency Medicine; Visit Provider Internal Medicine
DX: I11.9 Hypertensive heart disease without heart failure (principal); E78.5 Hyperlipidemia, unspecified; I25.118 Atherosclerotic heart disease of native coronary artery with other forms of angina pectoris; R06.00 Dyspnea, unspecified; R94.30 Abnormal result of cardiovascular function study, unspecified; Z95.0 Presence of cardiac pacemaker; I65.23 Occlusion and stenosis of bilateral carotid arteries; F17.210 Nicotine dependence, cigarettes, uncomplicated; Z79.899 Other long term (current) drug therapy; Z95.1 Presence of aortocoronary bypass graft; Z20.822 Contact with and (suspected) exposure to COVID-19
CPT/HCPCS: 36415; 80048; 85025; 85347; 92937; 93459; 99152; C1725; C1760; C1769; C1876; C1894; C9604; C9803; J1644; Q9967; U0003; U0005

== ENCOUNTER → 2021-12-11 16:50 | Outpatient (CLI) | payer OTHER, SELFPAY ==
[2021-12-11 15:17] LABS: Basophils # 0.1 K/mm3 (0-0.2); Basophils % 1.7 % (0.1-2.0); Eosinophils # 0.3 K/mm3 (0.0-0.4); Hematocrit 40.3 % (37.0-47.0); Hemoglobin 12.8 g/dL (12.2-16.2); Lymphocytes # 2.5 K/mm3 (0.7-4.5); Lymphocytes % 29.1 % (10-50); Mean Corpuscular HGB Conc 31.8 g/dL (31.8-35.4); Mean Corpuscular Volume 94.4 fl (81-99); Mean Platelet Volume 7.3 fl (7.4-10.4); Monocytes # 0.6 K/mm3 (0.1-1.0); Monocytes % 7.4 % (1.7-9.3); Neutrophils % 58.8 % (37.0-80.0); Platelet Count 403 K/mm3 (142-424); Red Blood Count 4.27 M/mm3 (4.20-5.40); Red Cell Distribution Width 14.3 % (11.5-17.5); White Blood Count 8.5 K/mm3 (4.8-10.8)
[2021-12-11 15:22] LABS: Blood Urea Nitrogen 25 mg/dl (7-17); Calcium 9.9 mg/dl (8.4-10.2); Carbon Dioxide 29 mmol/L (22.0-30.0); Chloride 104 mmol/L (98-107); Estimated Glomerular Filt Rate 33 ml/min (>60); GFR (African American) 40 ML/MIN (>60); Glucose 81 mg/dl (74-100); Sodium 140 mmol/L (136-145)
[2021-12-11 15:59] LABS: Alanine Aminotransferase 14 U/L (12-78); Alkaline Phosphatase 115 U/L (38-126); Aspartate Amino Transferase 23 U/L (14-36); Bilirubin,Direct 0.1 mg/dl (0.0-0.4)
[2021-12-11 16:00] LABS: Albumin Level 4.3 g/dl (3.5-5.0); Total Protein,Serum 6.9 g/dl (6.3-8.2)
[2021-12-11 16:02] LABS: Bilirubin,Total 0.1 mg/dl (0.2-1.3)
== END ==
PROVIDERS: Physician Assistant; PCP Emergency Medicine; Visit Provider Internal Medicine Cardiovascular Disease
DX: E78.5 Hyperlipidemia, unspecified (principal); R06.00 Dyspnea, unspecified; I11.9 Hypertensive heart disease without heart failure; R94.30 Abnormal result of cardiovascular function study, unspecified; Z72.0 Tobacco use; Z95.0 Presence of cardiac pacemaker; R79.89 Other specified abnormal findings of blood chemistry
CPT/HCPCS: 36415; 80048; 80076; 85025

== ENCOUNTER → 2022-02-05 14:24 | Outpatient (CLI) | payer OTHER, SELFPAY ==
[2022-02-05 13:38] LABS: Amphetamine/Metha Screen,Urine Negative ng/ml (<1000); Barbiturates Screen,Urine Negative ng/ml (<200)
[2022-02-05 13:39] LABS: Benzodiazepines Screen,Urine Positive ng/ml (<200)
[2022-02-05 13:40] LABS: Cannabinoid Screen,Urine Positive ng/ml (<50); Cocaine Screen,Urine Negative ng/ml (<300)
[2022-02-05 13:41] LABS: Methadone Screen,Urine Negative ng/ml (<300); Opiate Screen,Urine Negative ng/ml (<300)
[2022-02-05 13:42] LABS: Phencyclidine Screen,Urine Negative ng/ml (<25)
== END ==
PROVIDERS: PCP Emergency Medicine; Visit Provider Emergency Medicine
DX: Z79.899 Other long term (current) drug therapy (principal)
CPT/HCPCS: 80305

== ENCOUNTER 2022-02-09 14:23 | Emergency (ER) | payer OTHER, SELFPAY ==
--- NOTE | 2022-02-09 14:17 | ECG_ITS ---
APPROVED REPORT Exam: Resting ECG HR:70 bpm ECG Measurements Heart Rate 70 AXES WI 220 P 91 QRSd 176 QRS 235 QT 442 T 11 QTc 462 Conclusion ELECTRONIC ATRIAL PACEMAKER ABNORMAL ECG UNCONFIRMED REPORT Electronically signed by : Dima Weston MD 02/11/2022 15:59:28
[2022-02-09 14:24] VITALS: BP 201/96; PULSE 70; RESP 22; TEMP 36.6; O2SAT 98; BMI 25.1
--- NOTE | 2022-02-09 14:30 | XR_ITS ---
FINAL REPORT CLINICAL HISTORY: pain COMPARISON: March 07, 2021 FINDINGS: PORTABLE CHEST A left-sided pacemaker is present. There are postoperative changes from CABG. The heart is normal in size. The mediastinum is unremarkable. The lungs are clear. There is no pneumothorax. IMPRESSION: No acute process. Reviewed, Interpreted and Dictated by Jaime Hardy MD Transcribed by Dominique Westbrook Authenticated and [facility]
--- NOTE | 2022-02-09 14:30 | PC.NURSE ---
LAB CALLED FOR A BLOOD DRAW ,
--- NOTE | 2022-02-09 14:33 | CT_ITS ---
FINAL REPORT TECHNIQUE: Axial images were performed through the lumbar spine by computed tomography. Sagittal reconstruction images were also performed. This study was performed with techniques to keep radiation doses as low as reasonably achievable, (ALARA). Individualized dose reduction techniques using automated exposure control or adjustment of mA and/or kV according to the patient's size were employed. CLINICAL HISTORY: trauma FINDINGS: Sagittal reconstruction images demonstrate 5 mm of subluxation of L3 on L4. No acute fracture. Dextroscoliosis. Moderate diffuse degenerative disc disease. Degenerative canal stenosis most pronounced at L3-L4 and L4-L5. IMPRESSION: No acute bony abnormality. Moderate to severe degenerative change. Reviewed, Interpreted and Dictated by Jaime Hardy MD Transcribed by Bayron Robbins Authenticated and [facility]
[2022-02-09 15:00] VITALS: BP 126/74; PULSE 78; RESP 16; TEMP 36.6; O2SAT 98
[2022-02-09 15:03] LABS: Basophils # 0.1 K/mm3 (0-0.2); Basophils % 1.5 % (0.1-2.0); Eosinophils # 0.3 K/mm3 (0.0-0.4); Eosinophils % 3.8 % (0.1-12.0); Hematocrit 40.8 % (37.0-47.0); Hemoglobin 13.5 g/dL (12.2-16.2); Lymphocytes # 1.8 K/mm3 (0.7-4.5); Lymphocytes % 21.3 % (10-50); Mean Corpuscular HGB Conc 33.1 g/dL (31.8-35.4); Mean Corpuscular Hemoglobin 30.2 pg (27.0-31.2); Mean Corpuscular Volume 91.3 fl (81-99); Monocytes # 0.4 K/mm3 (0.1-1.0); Monocytes % 4.5 % (1.7-9.3); Neutrophils # 5.9 K/mm3 (1.8-7.8); Neutrophils % 68.9 % (37.0-80.0); Platelet Count 375 K/mm3 (142-424); Red Blood Count 4.47 M/mm3 (4.20-5.40); Red Cell Distribution Width 13.9 % (11.5-17.5); White Blood Count 8.5 K/mm3 (4.8-10.8)
--- NOTE | 2022-02-09 15:10 | PC.NURSE ---
PT BACK FROM CT
--- NOTE | 2022-02-09 15:21 | PC.NURSE ---
FAMILY AT BS
[2022-02-09 15:22] LABS: Chloride 103 mmol/L (98-107); Potassium 3.5 mmoL/L (3.5-5.1); Sodium 140 mmol/L (136-145)
[2022-02-09 15:25] VITALS: BP 136/65; PULSE 71; RESP 18; O2SAT 100
[2022-02-09 15:25] LABS: Alanine Aminotransferase 15 U/L (12-78); Albumin Level 4.2 g/dl (3.5-5.0); Albumin/Globulin Ratio 1.6 (1.1-1.8); Alkaline Phosphatase 143 U/L (38-126); Anion Gap 12.5 mEq/L (5-15); Aspartate Amino Transferase 25 U/L (14-36); Blood Urea Nitrogen 24 mg/dl (7-17); Carbon Dioxide 28 mmol/L (22.0-30.0); Creatinine Clearance Estimated 52 mL/min (50-200); Estimated Glomerular Filt Rate 38 ml/min (>60); GFR (African American) 46 ML/MIN (>60); Globulin 2.7 g/dL (1.3-3.2); Total Protein,Serum 6.9 g/dl (6.3-8.2)
[2022-02-09 15:26] LABS: Calcium 9.1 mg/dl (8.4-10.2); Glucose 108 mg/dl (74-100)
[2022-02-09 15:27] LABS: Bilirubin,Total < 0.1 mg/dl (0.2-1.3)
[2022-02-09 15:41] LABS: Troponin I < 0.01 ng/ml (0.00-0.034)
--- NOTE | 2022-02-09 15:47 | HMH.EDGENADL ---
Discharge Plan Disposition Patient Disposition: Home, Self-Care Condition: Good Chief Complaint: PAIN Prescriptions Prescriptions: No Action diazepam [Valium] 10 mg tablet 10 mg PO BID Qty: 60 1RF gabapentin 300 mg capsule 300 mg PO TID Qty: 90 1RF hydrocodone-acetaminophen 7.5-325 mg tablet 1 tab PO TID Qty: 90 0RF Brilinta 90 mg tablet 90 mg PO BID Qty: 60 11RF famotidine [Acid Self Storage Manager (famotidine)] 20 mg tablet 20 mg PO DAILY Qty: 30 5RF isosorbide mononitrate 30 mg tablet extended release 24 hr 30 mg PO DAILY Qty: 90 3RF fluticasone propionate 50 mcg/actuation spray,suspension See Rx Instructions .ROUTE .COMPLEX Qty: 16 2RF Dose Instruction: INSTILL 1 SPRAY INTO EACH NOSTRIL EVERY DAY Rx Instructions: INSTILL 1 SPRAY INTO EACH NOSTRIL EVERY DAY rosuvastatin [Crestor] 40 mg tablet 40 mg PO DAILY Qty: 30 3RF polyethylene glycol 3350 [Miralax] 17 gram/dose powder 17 g PO DAILY Qty: 510 4RF fluconazole [Diflucan] 150 mg tablet 150 mg PO DAILY Qty: 5 1RF aspirin 81 mg tablet,delayed release (DR/EC) 81 mg PO DAILY Qty: 90 0RF diclofenac sodium 1 % gel See Rx Instructions .ROUTE .COMPLEX Qty: 100 0RF Dose Instruction: APPLY 2GM 4 TIMES A DAY TO SINGLE ELBOW, WRIST OR HAND FOR HAND INCLUDES PALM/FINGERS/BACK OF HAND Rx Instructions: APPLY 2GM 4 TIMES A DAY TO SINGLE ELBOW, WRIST OR HAND FOR HAND INCLUDES PALM/FINGERS/BACK OF HAND albuterol sulfate [ProAir HFA] 90 mcg/actuation HFA aerosol inhaler See Rx Instructions .ROUTE .COMPLEX Qty: 8.5 1RF Dose Instruction: INHALE 1 PUFF EVERY 6 HOURS NEEDED FOR SHORTNESS OF BREATH Rx Instructions: INHALE 1 PUFF EVERY 6 HOURS NEEDED FOR SHORTNESS OF BREATH ondansetron 4 mg tablet,disintegrating 4 mg PO Q8H PRN (Reason: nausea and vomiting) Qty: 20 0RF amlodipine 5 mg tablet See Rx Instructions .ROUTE .COMPLEX Qty: 90 0RF Dose Instruction: TAKE ONE TABLET BY MOUTH EVERY DAY Rx Instructions: TAKE ONE TABLET BY MOUTH EVERY DAY omeprazole 40 mg capsule,delayed release(DR/EC) See Rx Instructions .ROUTE .COMPLEX Qty: 90 0RF Dose Instruction: TAKE 1 CAPSULE BY MOUTH EVERY DAY Rx Instructions: TAKE 1 CAPSULE BY MOUTH EVERY DAY promethazine 12.5 mg tablet 12.5 mg PO BID PRN (Reason: nausea and vomiting) Qty: 10 0RF hydrochlorothiazide 25 mg tablet See Rx Instructions .ROUTE .COMPLEX Qty: 90 1RF Dose Instruction: TAKE ONE TABLET BY MOUTH EVERY DAY Rx Instructions: TAKE ONE TABLET BY MOUTH EVERY DAY losartan 100 mg tablet See Rx Instructions .ROUTE .COMPLEX Qty: 90 1RF Dose Instruction: TAKE ONE TABLET BY MOUTH DAILY Rx Instructions: TAKE ONE TABLET BY MOUTH DAILY lidocaine [Lidoderm] 5 % adhesive patch,medicated See Rx Instructions .ROUTE .COMPLEX Qty: 30 0RF Dose Instruction: APPLY ONE PATCH DAILY LEAVE ON MOST PAINFUL AREA FOR UP TO 12 HOURS Rx Instructions: APPLY ONE PATCH DAILY LEAVE ON MOST PAINFUL AREA FOR UP TO 12 HOURS metoprolol succinate 25 mg tablet extended release 24 hr See Rx Instructions .ROUTE .COMPLEX Qty: 90 0RF Dose Instruction: TAKE ONE TABLET BY MOUTH EVERY DAY Rx Instructions: TAKE ONE TABLET BY MOUTH EVERY DAY bupropion HCl 150 mg tablet sustained-release 12 hr See Rx Instructions .ROUTE .COMPLEX Qty: 60 2RF Dose Instruction: TAKE ONE TABLET BY MOUTH TWICE DAILY Rx Instructions: TAKE ONE TABLET BY MOUTH TWICE DAILY nitroglycerin 0.4 mg tablet, sublingual 0.4 mg SUBLINGUAL Q5M PRN (Reason: chest pain) Qty: 25 0RF Referrals Follow up/Referrals: Provider,Referral, MD [Primary Care Provider] - See instructions Clinical Impressions Clinical Impression: Back pain Instructions Patient Instructions: DI for Acute Pain -- Adult Discharge ED Provider: Abraham Mckeon Adult [facility] General C
[2022-02-09 16:00] VITALS: BP 152/76; PULSE 70; RESP 15
[2022-02-09 16:30] VITALS: BP 166/81
== END 2022-02-09 16:48 | disposition home or self-care (01) ==
PROVIDERS: Emergency Provider Emergency Medicine; PCP Emergency Medicine
DX: M54.12 Radiculopathy, cervical region (principal); M54.16 Radiculopathy, lumbar region; M51.36 Other intervertebral disc degeneration, lumbar region; M25.512 Pain in left shoulder; R10.32 Left lower quadrant pain; R11.2 Nausea with vomiting, unspecified; I10 Essential (primary) hypertension; I45.10 Unspecified right bundle-branch block; K21.9 Gastro-esophageal reflux disease without esophagitis; E78.5 Hyperlipidemia, unspecified; E55.9 Vitamin D deficiency, unspecified; G62.9 Polyneuropathy, unspecified; G89.29 Other chronic pain; G47.00 Insomnia, unspecified; F32.A Depression, unspecified; F41.9 Anxiety disorder, unspecified; F17.210 Nicotine dependence, cigarettes, uncomplicated; Z79.51 Long term (current) use of inhaled steroids; Z79.82 Long term (current) use of aspirin; Z79.899 Other long term (current) drug therapy; Z88.5 Allergy status to narcotic agent; Z88.6 Allergy status to analgesic agent; Z88.8 Allergy status to other drugs, medicaments and biological substances
CPT/HCPCS: 36415; 71045; 72131; 80053; 84484; 85025; 93005; 99285

== ENCOUNTER → 2022-04-05 11:30 | Outpatient (CLI) | payer OTHER, SELFPAY ==
[2022-04-05 19:47] LABS: Amphetamine/Metha Screen,Urine Negative ng/ml (<1000)
[2022-04-05 19:48] LABS: Barbiturates Screen,Urine Negative ng/ml (<200)
[2022-04-05 19:49] LABS: Benzodiazepines Screen,Urine Positive ng/ml (<200); Cannabinoid Screen,Urine Positive ng/ml (<50)
[2022-04-05 19:50] LABS: Cocaine Screen,Urine Negative ng/ml (<300)
[2022-04-05 19:51] LABS: Methadone Screen,Urine Negative ng/ml (<300); Opiate Screen,Urine Positive ng/ml (<300)
[2022-04-05 19:52] LABS: Phencyclidine Screen,Urine Negative ng/ml (<25)
== END ==
PROVIDERS: PCP Emergency Medicine; Visit Provider Emergency Medicine
DX: Z79.899 Other long term (current) drug therapy (principal)
CPT/HCPCS: 80305

== ENCOUNTER → 2022-06-02 10:15 | Outpatient (CLI) | payer OTHER, SELFPAY ==
[2022-06-02 15:28] LABS: Amphetamine/Metha Screen,Urine Negative ng/ml (<1000); Benzodiazepines Screen,Urine Positive ng/ml (<200)
[2022-06-02 15:29] LABS: Barbiturates Screen,Urine Negative ng/ml (<200)
[2022-06-02 15:30] LABS: Cannabinoid Screen,Urine Positive ng/ml (<50); Methadone Screen,Urine Negative ng/ml (<300)
[2022-06-02 15:31] LABS: Cocaine Screen,Urine Negative ng/ml (<300)
[2022-06-02 15:32] LABS: Opiate Screen,Urine Negative ng/ml (<300)
[2022-06-02 15:34] LABS: Phencyclidine Screen,Urine Positive ng/ml (<25)
== END ==
PROVIDERS: PCP Emergency Medicine; Visit Provider Emergency Medicine
DX: Z79.899 Other long term (current) drug therapy (principal)
CPT/HCPCS: 80305

== ENCOUNTER → 2022-06-11 14:00 | Outpatient (CLI) | payer OTHER, SELFPAY ==
[2022-06-11 18:38] LABS: Amphetamine/Metha Screen,Urine Negative ng/ml (<1000)
[2022-06-11 18:41] LABS: Benzodiazepines Screen,Urine Positive ng/ml (<200); Cannabinoid Screen,Urine Positive ng/ml (<50)
[2022-06-11 18:42] LABS: Cocaine Screen,Urine Negative ng/ml (<300); Methadone Screen,Urine Negative ng/ml (<300)
[2022-06-11 18:43] LABS: Opiate Screen,Urine Positive ng/ml (<300)
[2022-06-11 18:44] LABS: Phencyclidine Screen,Urine Negative ng/ml (<25)
[2022-06-11 19:07] LABS: Barbiturates Screen,Urine Negative ng/ml (<200)
== END ==
PROVIDERS: PCP Emergency Medicine; Visit Provider Emergency Medicine
DX: Z79.899 Other long term (current) drug therapy (principal)
CPT/HCPCS: 80305

== ENCOUNTER → 2022-07-26 23:27 | Outpatient (CLI) | payer OTHER, SELFPAY ==
[2022-07-26 19:00] LABS: Amphetamine/Metha Screen,Urine Negative ng/ml (<1000)
[2022-07-26 19:02] LABS: Barbiturates Screen,Urine Negative ng/ml (<200)
[2022-07-26 19:03] LABS: Benzodiazepines Screen,Urine Positive ng/ml (<200)
[2022-07-26 19:04] LABS: Cannabinoid Screen,Urine Positive ng/ml (<50); Cocaine Screen,Urine Negative ng/ml (<300)
[2022-07-26 19:05] LABS: Methadone Screen,Urine Negative ng/ml (<300); Opiate Screen,Urine Positive ng/ml (<300)
[2022-07-26 19:06] LABS: Phencyclidine Screen,Urine Negative ng/ml (<25)
== END ==
PROVIDERS: PCP Emergency Medicine; Visit Provider Emergency Medicine
DX: Z79.899 Other long term (current) drug therapy (principal)
CPT/HCPCS: 80305

== ENCOUNTER 2022-09-02 09:21 | Day surgery (SDC) | payer OTHER, SELFPAY ==
[2022-08-18 14:28] VITALS: BMI 25.1
[2022-09-02 09:50] VITALS: BP 149/66; PULSE 70; RESP 18; TEMP 36.3; O2SAT 99
--- NOTE | 2022-09-02 10:14 | EXP.ANES.CKL ---
[facility] Disclaimer: The information contained in this section may have been updated after the patient was seen, as this information can be updated by other users. Medical History Abnormal drug screen Anxiety Cardiac pacemaker in situ Carotid stent occlusion Cervical radiculopathy Depression GERD (gastroesophageal reflux disease) Hyperlipidemia Hypertension Insomnia Neuropathy RBBB Vitamin D deficiency (~09/15/17) Vomiting Surgical History H/O removal of cyst History of History of permanent cardiac pacemaker placement Hx of CABG S/P laparoscopic cholecystectomy Family History Other No significant family history Social History Smoking Status: Current every day smoker tobacco type: cigarettes packs per day: 1 pack-years: 45 alcohol intake: never substance use type: marijuana current occupational status: disabled Travel in the last 8 weeks: None household members: children housing: house lives independently: Yes marital status: single current occupational exposures/hazards: No caffeine: Yes special isrrael needs: No agree to transfusion: No do you feel safe at home: Yes victim of physical abuse: No victim of emotional abuse: No victim of sexual abuse: No would you like helpful sources: No [facility] Anesthesia Checklist Patient Identification Patient Identification: Arm Band and Verbal (Name & ) Structural Data Admitted From: Home Planned Operative Procedure/s: EGD Consent for Planned Operative Procedure(s) Verified: Yes NPO Status Verified Time NPO: 00:00 Airway Assessment C-Spine Mobility Assessed: Yes TMJ Mobility Assessed: Yes Dentition: Edentulous Neurological Assessment Level of Consciousness: Awake Hx Seizures: No Numbness or tingling in extremities: No Anesthesia Plan Anesthesia Risk discussed: Yes Anesthesia Plan: Verified ASA Class: III Anesthesia Type: MAC
[2022-09-02 10:23] VITALS: O2SAT 99
[2022-09-02 10:35] VITALS: BP 86/42; PULSE 70; RESP 14; TEMP 36.5; O2SAT 91
--- NOTE | 2022-09-02 10:38 | HMH.SCOPE ---
Procedure: Date: 09/02/22 Patient Date of :: 1960 Procedure Performed:: Diagnostic EGD with biopsies Indications:: History of barretts, GERD, abdominal pain Performing Provider:: Abel Manzanares MD Referring Provider:: Emelyn Manzanares APRN Sedation:: Propofol Procedure:: The gastroscope was gently passed through the incisoral orifice into the oral cavity and under direct visualization the esophagus was intubated. The endoscope was passed down the esophagus, through the stomach, and into the duodenum. Color, texture, mucosa, and anatomy of the esophagus, stomach, and duodenum were carefully examined with the scope. Findings:: Oropharynx: normal Esophagus: normal, no evidence of barretts EG Junction: intact at 40 cm Cardia: normal Fundus: normal Body: normal, biopsies obtained for evaluation of h.pylori Antrum: normal Duodenal bulb: normal Duodenum (second and third portion): normal Impression: Overall normal EGD, no current evidence of barretts Specimens:: Gastric Recommendations:: Follow up with referring provider as needed. Complications:: None Estimated blood obtained (mL): 0
[2022-09-02 10:45] VITALS: BP 102/51; PULSE 70; RESP 16; O2SAT 96
[2022-09-02 10:55] VITALS: BP 95/64; PULSE 70; RESP 17; O2SAT 99
[2022-09-02 11:05] VITALS: BP 102/72; PULSE 71; RESP 16; O2SAT 98
== END 2022-09-02 11:05 | disposition home or self-care (01) ==
PROVIDERS: PCP Emergency Medicine; Visit Provider Internal Medicine Gastroenterology
PROC: 0DJ08ZZ Inspection of Upper Intestinal Tract, Via Natural or Artificial Opening Endoscopic (ICD-10-PCS; CPT 43235; principal; 2022-09-02 12:30)
DX: K21.9 Gastro-esophageal reflux disease without esophagitis (principal); R10.9 Unspecified abdominal pain; F17.210 Nicotine dependence, cigarettes, uncomplicated; Z79.899 Other long term (current) drug therapy
CPT/HCPCS: 43239

== ENCOUNTER → 2022-09-22 12:58 | Outpatient (CLI) | payer OTHER, SELFPAY ==
[2022-09-22 17:37] LABS: Amphetamine/Metha Screen,Urine Negative ng/ml (<1000)
[2022-09-22 17:38] LABS: Barbiturates Screen,Urine Negative ng/ml (<200)
[2022-09-22 17:39] LABS: Benzodiazepines Screen,Urine Positive ng/ml (<200); Cannabinoid Screen,Urine Positive ng/ml (<50)
[2022-09-22 17:40] LABS: Cocaine Screen,Urine Negative ng/ml (<300)
[2022-09-22 17:41] LABS: Methadone Screen,Urine Negative ng/ml (<300)
[2022-09-22 17:42] LABS: Opiate Screen,Urine Positive ng/ml (<300); Phencyclidine Screen,Urine Negative ng/ml (<25)
== END ==
PROVIDERS: PCP Emergency Medicine; Visit Provider Emergency Medicine
DX: Z79.899 Other long term (current) drug therapy (principal)
CPT/HCPCS: 80305

== ENCOUNTER → 2022-11-12 14:30 | Outpatient (CLI) | payer OTHER, SELFPAY ==
[2022-11-12 13:37] LABS: Basophils # 0.1 K/mm3 (0-0.2); Basophils % 0.6 % (0.1-2.0); Eosinophils # 0.1 K/mm3 (0.0-0.4); Eosinophils % 1.2 % (0.1-12.0); Hematocrit 41.2 % (37.0-47.0); Lymphocytes # 2.6 K/mm3 (0.7-4.5); Mean Corpuscular HGB Conc 31.5 g/dL (31.8-35.4); Mean Corpuscular Hemoglobin 28.7 pg (27.0-31.2); Mean Platelet Volume 7.5 fl (7.4-10.4); Monocytes # 0.6 K/mm3 (0.1-1.0); Neutrophils # 6.2 K/mm3 (1.8-7.8); Neutrophils % 65.2 % (37.0-80.0); Platelet Count 470 K/mm3 (142-424); Red Blood Count 4.53 M/mm3 (4.20-5.40); Red Cell Distribution Width 14.2 % (11.5-17.5); White Blood Count 9.6 K/mm3 (4.8-10.8)
[2022-11-12 13:45] LABS: Alanine Aminotransferase 19 U/L (12-78); Albumin/Globulin Ratio 1.4 (1.1-1.8); Alkaline Phosphatase 140 U/L (38-126); Anion Gap 14.6 mEq/L (5-15); Aspartate Amino Transferase 28 U/L (14-36); Bilirubin,Total 0.5 mg/dl (0.2-1.3); Blood Urea Nitrogen 28 mg/dl (7-17); Calcium 9.8 mg/dl (8.4-10.2); Carbon Dioxide 28 mmol/L (22.0-30.0); Chloride 103 mmol/L (98-107); Estimated Glomerular Filt Rate 31 ml/min (>60); GFR (African American) 37 ML/MIN (>60); Globulin 2.9 g/dL (1.3-3.2); Glucose 93 mg/dl (74-100); HDL Cholesterol 55 mg/dl (40-60); Potassium 3.6 mmoL/L (3.5-5.1); Sodium 142 mmol/L (136-145); Total Protein,Serum 6.9 g/dl (6.3-8.2); Triglycerides 187 mg/dl (30-150); VLDL Cholesterol 37 mg/dL (0-40)
[2022-11-12 13:56] LABS: Direct LDL Cholesterol 195.38 mg/dL (100-129)
[2022-11-12 13:57] LABS: Amphetamine/Metha Screen,Urine Negative ng/ml (<1000)
[2022-11-12 13:58] LABS: Barbiturates Screen,Urine Negative ng/ml (<200)
[2022-11-12 13:59] LABS: Benzodiazepines Screen,Urine Positive ng/ml (<200); Cannabinoid Screen,Urine Positive ng/ml (<50)
[2022-11-12 14:00] LABS: Cocaine Screen,Urine Negative ng/ml (<300)
[2022-11-12 14:01] LABS: Methadone Screen,Urine Negative ng/ml (<300)
[2022-11-12 14:02] LABS: 25-OH Vitamin D, Total 27.9 ng/mL (30-100); Opiate Screen,Urine Positive ng/ml (<300)
[2022-11-12 14:03] LABS: Phencyclidine Screen,Urine Negative ng/ml (<25)
[2022-11-12 14:06] LABS: Chol/HDL Ratio 6.1 (1-3.5); Cholesterol 336 mg/dl (140-200)
[2022-11-12 14:17] LABS: Thyroid Stimulating Hormone 0.77 uIU/mL (0.465-4.68)
== END ==
PROVIDERS: PCP Emergency Medicine; Visit Provider Emergency Medicine
DX: Z79.899 Other long term (current) drug therapy (principal); G62.9 Polyneuropathy, unspecified; E55.9 Vitamin D deficiency, unspecified
CPT/HCPCS: 80053; 80061; 80305; 82306; 84439; 84443; 85025

== ENCOUNTER → 2023-01-06 15:56 | Outpatient (CLI) | payer OTHER, SELFPAY ==
[2023-01-06 14:43] LABS: Barbiturates Screen,Urine Negative ng/ml (<200); Benzodiazepines Screen,Urine Positive ng/ml (<200)
[2023-01-06 14:44] LABS: Cannabinoid Screen,Urine Positive ng/ml (<50)
[2023-01-06 14:45] LABS: Cocaine Screen,Urine Negative ng/ml (<300); Methadone Screen,Urine Negative ng/ml (<300)
[2023-01-06 14:46] LABS: Opiate Screen,Urine Positive ng/ml (<300)
[2023-01-06 14:50] LABS: Phencyclidine Screen,Urine Negative ng/ml (<25)
[2023-01-06 15:54] LABS: Amphetamine/Metha Screen,Urine Negative ng/ml (<1000)
== END ==
PROVIDERS: PCP Emergency Medicine; Visit Provider Emergency Medicine
DX: Z79.899 Other long term (current) drug therapy (principal)
CPT/HCPCS: 80305

== ENCOUNTER → 2023-03-02 17:12 | Outpatient (CLI) | payer OTHER, SELFPAY ==
[2023-03-02 18:19] LABS: Barbiturates Screen,Urine Negative ng/ml (<200)
[2023-03-02 18:20] LABS: Cannabinoid Screen,Urine Positive ng/ml (<50)
[2023-03-02 18:21] LABS: Benzodiazepines Screen,Urine Positive ng/ml (<200); Methadone Screen,Urine Negative ng/ml (<300)
[2023-03-02 18:22] LABS: Cocaine Screen,Urine Negative ng/ml (<300)
[2023-03-02 18:23] LABS: Opiate Screen,Urine Positive ng/ml (<300); Phencyclidine Screen,Urine Negative ng/ml (<25)
[2023-03-02 18:32] LABS: Amphetamine/Metha Screen,Urine Negative ng/ml (<1000)
== END ==
PROVIDERS: PCP Emergency Medicine; Visit Provider Emergency Medicine
DX: Z79.899 Other long term (current) drug therapy (principal)
CPT/HCPCS: 80305

== ENCOUNTER → 2023-04-26 18:23 | Outpatient (CLI) | payer OTHER, SELFPAY ==
[2023-04-26 15:38] LABS: Basophils # 0.1 K/mm3 (0-0.2); Basophils % 0.5 % (0.1-2.0); Eosinophils # 0.2 K/mm3 (0.0-0.4); Eosinophils % 1.8 % (0.1-12.0); Hematocrit 37.2 % (37.0-47.0); Lymphocytes # 2.6 K/mm3 (0.7-4.5); Lymphocytes % 25.5 % (10-50); Mean Corpuscular HGB Conc 34.9 g/dL (31.8-35.4); Mean Corpuscular Hemoglobin 31.5 pg (27.0-31.2); Mean Corpuscular Volume 90.2 fl (81-99); Mean Platelet Volume 7.9 fl (7.4-10.4); Monocytes # 0.6 K/mm3 (0.1-1.0); Monocytes % 5.9 % (1.7-9.3); Neutrophils # 6.7 K/mm3 (1.8-7.8); Neutrophils % 66.2 % (37.0-80.0); Platelet Count 469 K/mm3 (142-424); Red Blood Count 4.13 M/mm3 (4.20-5.40); Red Cell Distribution Width 14.3 % (11.5-17.5); White Blood Count 10.1 K/mm3 (4.8-10.8)
[2023-04-26 16:31] LABS: Alanine Aminotransferase 29 U/L (12-78); Albumin Level 3.9 g/dl (3.5-5.0); Albumin/Globulin Ratio 1.4 (1.1-1.8); Alkaline Phosphatase 108 U/L (38-126); Anion Gap 8.6 mEq/L (5-15); Aspartate Amino Transferase 29 U/L (14-36); Bilirubin,Total 0.5 mg/dl (0.2-1.3); Blood Urea Nitrogen 22 mg/dl (7-17); Calcium 9.5 mg/dl (8.4-10.2); Carbon Dioxide 29 mmol/L (22.0-30.0); Chloride 103 mmol/L (98-107); Chol/HDL Ratio 4.7 (1-3.5); Cholesterol 278 mg/dl (140-200); Estimated Glomerular Filt Rate 24 ml/min (>60); GFR (African American) 29 ML/MIN (>60); Globulin 2.7 g/dL (1.3-3.2); Glucose 95 mg/dl (74-100); HDL Cholesterol 59 mg/dl (40-60); Potassium 3.6 mmoL/L (3.5-5.1); Sodium 137 mmol/L (136-145); Total Protein,Serum 6.6 g/dl (6.3-8.2); Triglycerides 237 mg/dl (30-150); VLDL Cholesterol 47 mg/dL (0-40)
[2023-04-26 16:42] LABS: Direct LDL Cholesterol 145.12 mg/dL (100-129)
[2023-04-26 17:06] LABS: Creatinine,Urine Random 106 mg/dL (Not Estab.)
[2023-04-26 17:07] LABS: Microalbumin/Creatinine Ratio 8.3
== END ==
PROVIDERS: PCP Internal Medicine; Visit Provider Internal Medicine
DX: E78.5 Hyperlipidemia, unspecified (principal); E87.6 Hypokalemia
CPT/HCPCS: 80053; 80061; 82043; 82570; 85025

== ENCOUNTER 2023-05-23 15:42 | Outpatient (CLI) | payer OTHER, SELFPAY ==
[2023-05-23 14:44] LABS: Amphetamine/Metha Screen,Urine Negative ng/ml (<1000); Barbiturates Screen,Urine Negative ng/ml (<200); Benzodiazepines Screen,Urine Positive ng/ml (<200); Cannabinoid Screen,Urine Positive ng/ml (<50); Cocaine Screen,Urine Negative ng/ml (<300); Methadone Screen,Urine Negative ng/ml (<300); Opiate Screen,Urine Positive ng/ml (<300); Phencyclidine Screen,Urine Negative ng/ml (<25)
== END 2023-05-23 23:59 ==
LOC: LAB.DROPOF 15:43
PROVIDERS: PCP Internal Medicine; Visit Provider Internal Medicine
DX: Z79.899 Other long term (current) drug therapy (principal)
CPT/HCPCS: 80307

== ENCOUNTER 2023-06-13 12:14 | Day surgery (SDC) | payer OTHER, SELFPAY ==
[2023-06-13] VITALS (14 sets, daily range): BP systolic 136–168; BP diastolic 73–86; PULSE 70; RESP 17–20; TEMP 36.6; O2SAT 97–99; BMI 26.9
[2023-06-13 12:54] LABS: Basophils # 0.1 K/mm3 (0-0.2); Eosinophils # 0.2 K/mm3 (0.0-0.4); Hematocrit 42.8 % (37.0-47.0); Hemoglobin 14.3 g/dL (12.2-16.2); Lymphocytes # 2.3 K/mm3 (0.7-4.5); Lymphocytes % 23.8 % (10-50); Mean Corpuscular HGB Conc 33.4 g/dL (31.8-35.4); Mean Corpuscular Hemoglobin 30.1 pg (27.0-31.2); Mean Platelet Volume 7.1 fl (7.4-10.4); Monocytes # 0.5 K/mm3 (0.1-1.0); Monocytes % 5.4 % (1.7-9.3); Neutrophils # 6.5 K/mm3 (1.8-7.8); Neutrophils % 67.8 % (37.0-80.0); Platelet Count 409 K/mm3 (142-424); Red Blood Count 4.75 M/mm3 (4.20-5.40); Red Cell Distribution Width 14.4 % (11.5-17.5); White Blood Count 9.6 K/mm3 (4.8-10.8)
--- NOTE | 2023-06-13 12:56 | IR_ITS ---
APPROVED REPORT Patient Location: Outpatient Pbx Supervisor: PONCHO Delacruz RT (R) PROCEDURES Selective coronary angiogram Selective engagement left internal mammary artery with angiography Selective engagement of the saphenous vein graft to the first and second obtuse marginal artery Left selective renal angiography INDICATION Abnormal stress test, Angina pectoris, Chronic renal failure creatinine 1.7 suspect renal artery stenosis, Probably vascular disease, Informed consent was obtained prior to the procedure. COMPLICATIONS None Estimated Blood Loss: Less than 10 mls TECHNIQUE One percent lidocaine used to anesthetize the right groin. The right femoral artery was accessed via the Seldinger technique and a 5 Italian sheath was placed in the right femoral artery. A JL 4, JR4 catheter were used to perform selective coronary angiography. The JR4 catheter was used to perform left internal mammary artery angiography. The stenosis was identified in the left subclavian artery therefore the catheter was placed in the left axillary artery and the 4 Italian JR4 catheter was pulled back. A 10 mm Casillas stenotic gradient was identified across the left subclavian artery stenosis. Following this the JR4 catheter was used to perform right coronary artery angiography as well as selective engagement of the saphenous vein graft to the first and second obtuse marginal artery. The JR4 catheter was then used to perform left selective renal artery angiography. At the end the procedure the apparatus was removed the patient was transferred to the postop holding in stable condition for sheath removal ANGIOGRAPHIC RESULTS The left main artery Has a long diffuse 30% stenosis The left anterior descending artery Is proximally patent but severely stenosed greater than 70%. Competitive flow from the left internal mammary artery is identified. The circumflex artery Is a large dominant vessel and has an ostial 80 to 90% concentric stenosis which extends as a 70% stenosis throughout the majority of the proximal portion. Distal to the 70% stenosis competitive flow is identified in the first obtuse marginal artery. The right coronary artery Nondominant proximal 60% stenosis but patent The NUÑEZ ventriculogram reveals Not performed The left ventricular end-diastolic pressure Not measured ZELAYA to LAD patent Saphenous vein graft to first obtuse marginal artery is patent however the vessel has severe vascular ectasia with diffuse proximal and mid vessel atheromatous plaque with no stenosis greater than 10 to 20%. After the first obtuse marginal artery the graft and skips over to a second obtuse marginal artery with this limb also widely patent Left renal artery singular and has proximal 10 to 20% nonflow limiting stenosis IMPRESSION Coronary revascularization as described above Patent left renal artery PLAN 1. Continue medical management 2. Aggressive risk factor modification 3. It appears patient's symptoms are noncardiac Electronically signed by : Prosper Dyson MD 06/13/2023 14:06:00
[2023-06-13 12:59] LABS: Chloride 105 mmol/L (98-107); Sodium 141 mmol/L (136-145)
[2023-06-13 13:03] LABS: Blood Urea Nitrogen 22 mg/dl (7-17); Calcium 9.7 mg/dl (8.4-10.2); Carbon Dioxide 27 mmol/L (22.0-30.0); Creatinine Clearance Estimated 45 mL/min (50-200); Estimated Glomerular Filt Rate 31 ml/min (>60); GFR (African American) 37 ML/MIN (>60); Glucose 115 mg/dl (74-100)
[2023-06-13] MEDS: 0.9 % SODIUM CHLORIDE 500 ML 25 ML IV (13:24)
[2023-06-13] MEDS: diphenhydrAMINE 50MG/ML VIAL 50 MG IV (13:24)
[2023-06-13] MEDS: HEPARIN 1,000 UNITS/500ML NS (CATH LAB) 3000 UNIT IV (13:24)
[2023-06-13] MEDS: MIDAZOLAM HCL 1MG/1ML 5ML VIAL 1 MG IV (13:24)
[2023-06-13] MEDS: LIDOCAINE 1% 10ML MDV 20 ML IJ (13:24)
[2023-06-13] MEDS: FENTANYL 100MCG/2ML VIAL 50 MCG IV (13:25)
[2023-06-13] MEDS: PROMETHAZINE HCL 25MG/ML 1ML VIAL 25 MG IV (13:49)
[2023-06-13] MEDS: PROPOFOL 10MG/ML 20ML VIAL 70 MG IV (13:58)
[2023-06-13] MEDS: IOPAMIDOL-370 (76%);100ML BOTTLE 60 ML IV (14:32)
[2023-06-13] MEDS: POTASSIUM CHLORIDE 20MEQ TAB 40 MEQ PO (17:05)
== END 2023-06-13 17:19 | disposition home or self-care (01) ==
PROVIDERS: PCP Internal Medicine; Visit Provider Internal Medicine
DX: I25.110 Atherosclerotic heart disease of native coronary artery with unstable angina pectoris (principal); E78.5 Hyperlipidemia, unspecified; I11.9 Hypertensive heart disease without heart failure; Z95.0 Presence of cardiac pacemaker; Z79.899 Other long term (current) drug therapy; E55.9 Vitamin D deficiency, unspecified; Z95.1 Presence of aortocoronary bypass graft; I65.23 Occlusion and stenosis of bilateral carotid arteries; I25.708 Atherosclerosis of coronary artery bypass graft(s), unspecified, with other forms of angina pectoris
CPT/HCPCS: 80048; 85025; 93455; 99152; C1725; C1769; C1894; J1644; Q9967

== ENCOUNTER 2023-06-13 18:49 | Observation (INO) | payer OTHER, SELFPAY ==
[2023-06-13 18:55] VITALS: BP 186/86; PULSE 68; RESP 20; TEMP 36.8; O2SAT 98; BMI 25.8
--- NOTE | 2023-06-13 19:19 | ED_ITS ---
Discharge Plan Disposition Patient Disposition: Admitted Clinical Impressions Clinical Impression: Postoperative hematoma involving circulatory system following circulatory system procedure, Hematoma of right thigh Discharge ED Provider: Mariana Powell General Adult HPI General Chief complaint: Recheck/Abnormal Lab/Rx Stated complaint: right leg pain @ cathlab today Time Seen by Provider: 06/13/23 18:57 Mode of Arrival: Wheelchair Source of Information: Patient Limitations: No Limitations Description of Symptoms (Recalled from ER Triage Doc. by RN): Patient reports she had a heart cath today, no stents were placed. Right femoral site is bruised and tender. History of Present Illness HPI narrative: Patient is a 62-year-old female who was recently cathed today by Dr. Dyson, left heart cath with access in the right groin. She small bleeding after the procedure some direct pressure was held and she went home and subsequently had a significant increase in her bleeding at home with a large thigh hematoma that prompted a return visit to the emergency department. She is still taking her aspirin and Brilinta. Denies any other symptoms at the moment. 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)) atorvastatin 80 mg tablet (Lipitor) 80 mg PO HS #90 tabs 11/22/22 lidocaine 5 % topical patch See Rx Instructions .Route 01/16/23 .COMPLEX #30 patches omeprazole 40 mg capsule,delayed See Rx Instructions .Route 01/16/23 release .COMPLEX #90 caps ergocalciferol (vitamin D2) 1,250 See Rx Instructions .Route 04/01/23 mcg (50,000 unit) capsule .COMPLEX #5 caps isosorbide mononitrate 30 mg 30 mg PO DAILY htn #90 tabs 05/11/23 tablet,extended release 24 hr ticagrelor 90 mg tablet (Brilinta) 90 mg PO BID Blood thinner #180 05/11/23 tabs budesonide-formoterol HFA 80 See Rx Instructions .Route 05/20/23 mcg-4.5 mcg/actuation aerosol .COMPLEX #10.2 grams inhaler (Symbicort) bupropion HCl 300 mg 24 hr tablet, 300 mg PO DAILY 30 days #30 tabs 05/23/23 extended release gabapentin 300 mg capsule 300 mg PO TID Pain #90 caps 05/23/23 hydrocodone 7.5 mg-acetaminophen 1 tab PO TID PRN pain 30 days #90 05/23/23 325 mg tablet tabs inclisiran 284 mg/1.5 mL 284 mg (1.5 mL) SQ [id number] #1.5 mL 05/23/23 subcutaneous syringe (Leqvio) nitroglycerin 0.4 mg sublingual 0.4 mg sublingual Q5M PRN chest 05/23/23 tablet pain #20 tabs nicotine 14 mg/24 hr daily See Rx Instructions .Route 05/27/23 transdermal patch .COMPLEX #28 ea ezetimibe 10 mg tablet See Rx Instructions .Route 05/30/23 .COMPLEX #30 tabs hydrochlorothiazide 25 mg tablet See Rx Instructions .Route 05/30/23 .COMPLEX #90 tabs losartan 100 mg tablet See Rx Instructions .Route 05/30/23 .COMPLEX #90 tabs fluconazole 100 mg tablet See Rx Instructions .Route 06/06/23 .COMPLEX #7 tabs metoprolol succinate 25 mg See Rx Instructions .Route 06/06/23 tablet,extended release 24 hr .COMPLEX #90 tabs diazepam 5 mg tablet 5 mg PO TID PRN anxiety 30 days 06/07/23 #90 tabs Allergies Allergy/AdvReac Type Severity Reaction Status Date / Time codeine Allergy Intermediate Verified 06/13/23 13:12 acetaminophen [From Tylenol] Allergy Mild Verified 06/13/23 13:12 cephalexin Allergy Unknown Verified 06/13/23 13:12 doxycycline Allergy Unknown Verified 06/13/23 13:12 tramadol Allergy Unknown Verified 06/13/23 13:12 [facility] Disclaimer: The information contained in this section may have been updated after the patient was seen, as this information can be updated by other users. Medical History Abnormal drug screen Anxiety Cardiac pacemaker in situ Carotid stent occlusion Cervical radiculopathy Depression GERD (gastroesophageal reflux disease) Hx of Moreno's esophagus. Long standing PPI use Hyperlipidemia Patient will need a lipid panel at her next visit. Hypertension BP Today is 138/81. She is on HCTZ, losartan and metoprolol. She is to check her BP at home, record these values and bring them back to the clinic. Insomnia Neuropathy RBBB Vitamin D deficiency (~09/15/17) Patient is on vitamin D supplementation. Vomiting Will treat with Phenerghan temporarily Surgical History H/O removal of cyst History of History of permanent cardiac pacemaker placement Hx of CABG S/P laparoscopic cholecystectomy Family History Other No significant family history Social History (Updated 06/13/23 @ 13:08 by Luisa Graejda RN) Smoking Status: Current every day smoker tobacco type: cigarettes packs per day: 1 alcohol intake: never substance use type: marijuana current occupational status: disabled Travel in the last 8 weeks: Inside the [place] household members: children housing: house lives independently: Yes marital status: single current occupational exposures/hazards: No caffeine: Yes special isrrael needs: No agree to transfusion: No do you feel safe at home: Yes victim of physical abuse: No victim of emotional abuse: No victim of sexual abuse: No would you like helpful sources: No ROS Obtained: Yes All systems reviewed & no additional complaints except as documented Physical Exam General General appearance: alert Respiratory Respiratory exam: Present normal lung sounds bilaterally Cardiovascular Cardiovascular exam: Present regular rate Extremities Exam Extremities exam: Present other (15 x 15 cm area of induration and swelling and tenderness over the right thigh just distal to the insertion site from recent he art cath no active bleeding external) Neurological Exam Neurological exam: Present alert Medical Decision Making Paul Inquiry Pt receiving controlled substance: No Vital Signs: 06/13/23 18:55 Temperature 98.2 F Temperature Source Oral Pulse Rate [Right Radial] 68 Respiratory Rate 20 Blood Pressure [Right Arm] 186/86 H Blood Pressure Mean [Right Arm] 119 Blood Pressure Source [Right Arm] Automatic Cuff Blood Pressure Position [Right Arm] Supine 02 Sat by Pulse Oximetry 98 Oxygen Delivery Method Room Air Orders (Tests/Meds): ORDERS Category Date Time Status Type and Screen Stat BBK 06/13/23 19:16 Ordered POCUS Point of Care (ER Only) Stat Exams 06/13/23 18:59 Ordered CBC w/Auto Diff [Complete Blood Count Auto Diff] Stat Lab 06/13/23 19:11 Ordered CMP [Comprehensive Metabolic Panel] Stat Lab 06/13/23 19:11 Ordered PT/PTT Stat Lab 06/13/23 19:16 Ordered Medical Decision Narrative: 62-year-old female presents today with postprocedural thigh hematoma after a heart cath with access in the right thigh. Direct pressure was applied at 7:15 PM and a pressure dressing I discussed the case with Dr. Dyson we will hold direct pressure for an additional 30 minutes and she will be admitted for observation. Bedside ultrasound was performed which only shows fluid is collecting in the subcutaneous tissue no obvious evidence of pseudoaneurysm etc. She is hemodynamically stable will get basic blood work for baseline and type and screen. Procedures Miscellaneous Procedure Procedure Performed: Limited soft tissue ultrasound Indication: Thigh swelling Identified structures: Location: Right thigh Findings: Fluid significantly tracking and subcutaneous tissue in the right thigh no obvious evidence of pseudoaneurysm Impression: Right thigh hematoma without evidence of a pseudoaneurysm Images were saved to permanent archive The study was technically adequate Soft Tissue CPT Codes: CPT Other Soft Tissue: 08204-15 This study was performed by me, and I personally interpreted all images/videos. Based on my clinical judgement, these images were adequate and did not necessitate further imaging. Critical Care Critical Care Time Critical Care Time: No
--- NOTE | 2023-06-13 19:29 | EXP.HP ---
History of Present Illness *Admission Date: 06/13/23 *Reason for visit:: right thigh hematoma *History of present illness: This is a 62-year-old female PMHx CAD with recurrent angina, HTN, cardiac pacemaker, anxiety and depression who had a left heart cath today. Access thru the right groin. She small bleeding after the procedure some direct pressure was held and she went home and subsequently had a significant increase in her bleeding at home with a large thigh hematoma that prompted a return visit to the emergency department. She is still taking her aspirin and Brillinta. Denies any other symptoms at the moment. Admitted for further monitoring and management. [facility] Disclaimer: The information contained in this section may have been updated after the patient was seen, as this information can be updated by other users. Medical History Abnormal drug screen Anxiety Cardiac pacemaker in situ Carotid stent occlusion Cervical radiculopathy Depression GERD (gastroesophageal reflux disease) Hx of Moreno's esophagus. Long standing PPI use Hyperlipidemia Patient will need a lipid panel at her next visit. Hypertension BP Today is 138/81. She is on HCTZ, losartan and metoprolol. She is to check her BP at home, record these values and bring them back to the clinic. Insomnia Neuropathy RBBB Vitamin D deficiency (~09/15/17) Patient is on vitamin D supplementation. Vomiting Will treat with Phenerghan temporarily Surgical History H/O removal of cyst History of History of permanent cardiac pacemaker placement Hx of CABG S/P laparoscopic cholecystectomy Family History Other No significant family history Social History (Updated 06/13/23 @ 13:08 by Luisa Grajeda RN) Smoking Status: Current every day smoker tobacco type: cigarettes packs per day: 1 alcohol intake: never substance use type: marijuana current occupational status: disabled Travel in the last 8 weeks: [place] [employer] [place] household members: children housing: house lives independently: Yes marital status: single current occupational exposures/hazards: No caffeine: Yes special isrrael needs: No agree to transfusion: No do you feel safe at home: Yes victim of physical abuse: No victim of emotional abuse: No victim of sexual abuse: No would you like helpful sources: No Review of Systems Review of Systems Review of systems:: pertinent systems reviewed and negative unless documented below Meds Home Medications and Allergies Home Medications Medication Instructions Recorded Confirmed Type aspirin 81 mg tablet,delayed 81 mg PO DAILY Heart disease #90 03/17/20 06/13/23 Rx release tabs fluticasone propionate 50 1 spray intranasal DAILY allergies 08/30/22 06/14/23 History mcg/actuation nasal spray,suspension albuterol sulfate 90 mcg/actuation See Rx Instructions .Route 11/12/22 06/13/23 Rx aerosol inhaler (ProAir HFA) .COMPLEX Breathing problems #6.7 grams atorvastatin 80 mg tablet (Lipitor) 80 mg PO HS #90 tabs 11/22/22 06/13/23 Rx ticagrelor 90 mg tablet (Brilinta) 90 mg PO BID Blood thinner #180 05/11/23 06/13/23 Rx tabs bupropion HCl 300 mg 24 hr tablet, 300 mg PO DAILY 30 days #30 tabs 05/23/23 06/13/23 Rx extended release nitroglycerin 0.4 mg sublingual 0.4 mg sublingual Q5M PRN chest 05/23/23 06/13/23 Rx tablet pain #20 tabs diazepam 10 mg tablet 5 mg PO TID 06/13/23 06/13/23 History budesonide-formoterol HFA 80 1 puff inhalation BID 06/14/23 06/14/23 History mcg-4.5 mcg/actuation aerosol inhaler (Symbicort) ergocalciferol (vitamin D2) 1,250 50,000 unit PO WEEKLY 06/14/23 06/14/23 History mcg (50,000 unit) capsule evolocumab 140 mg/mL subcutaneous 140 mg SQ Q2W #1 mL 06/14/23 Rx pen injector (Repmarlen Campos) ezetimibe 10 mg tablet 10 mg PO HS 06/14/23 06/14/23 History famotidine 20 mg tablet (Acid 20 mg PO DAILY 06/14/23 06/13/23 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)) fluconazole 100 mg tablet 100 mg PO DAILY 06/14/23 06/14/23 History gabapentin 300 mg capsule 300 mg PO TID neuropathic pain 06/14/23 06/13/23 History hydrochlorothiazide 25 mg tablet 25 mg PO DAILY 06/14/23 06/14/23 History hydrocodone 7.5 mg-acetaminophen 1 tab PO TIDP PRN Moderate Pain 06/14/23 06/14/23 History 325 mg tablet (Scale Score 5-6) isosorbide mononitrate 30 mg 30 mg PO DAILY 06/14/23 06/13/23 History tablet,extended release 24 hr lidocaine 5 % topical patch 1 patch topical DAILY 06/14/23 06/14/23 History losartan 100 mg tablet 100 mg PO DAILY 06/14/23 06/14/23 History metoprolol succinate 25 mg 25 mg PO DAILY 06/14/23 06/14/23 History tablet,extended release 24 hr nicotine 14 mg/24 hr daily 1 patch topical DAILY 06/14/23 06/14/23 History transdermal patch omeprazole 40 mg capsule,delayed 40 mg PO DAILY 06/14/23 06/14/23 History release New Prescriptions to Start Prescriptions: Allergies Allergy/AdvReac Type Severity Reaction Status Date / Time codeine Allergy Intermediate Verified 06/13/23 13:12 acetaminophen [From Tylenol] Allergy Mild Verified 06/13/23 13:12 cephalexin Allergy Unknown Verified 06/13/23 13:12 doxycycline Allergy Unknown Verified 06/13/23 13:12 tramadol Allergy Unknown Verified 06/13/23 13:12 Exam Data for Last 24 hours Vital signs and Labs for Last 24 Hours: Temp Pulse Resp BP Pulse Ox O2 Del Method 98.2 F 68 20 186/86 H 98 Room Air 06/13/23 18:55 06/13/23 18:55 06/13/23 18:55 06/13/23 18:55 06/13/23 18:55 06/13/23 18:55 I & O for Last 24 hours: Intake & Output 06/10/23 06/11/23 06/12/23 06/13/23 23:59 23:59 23:59 23:59 Weight 81.647 kg Constitutional Constitutional: mild distress and cooperative *Routine HEENT Exam Head: Present normocephalic and atraumatic Eye: Present EOMI, PERRL and normal accommodation ENT: Present mucous membranes moist *Routine Neck Exam Neck: Present supple, full ROM and trachea midline *Routine Respiratory Exam Respiratory: Present normal respiratory effort, able to speak in complete sentences and symmetric chest movement; Absent respiratory distress *Routine Cardiovascular Exam Cardiovascular: Present RRR, Normal S1 and Normal S2 *Routine Abdominal Exam Abdominal: Present soft and normoactive bowel sounds; Absent organomegaly *Routine Rectal Exam Rectal:: deferred *Routine Genitalia Exam Genitalia:: deferred *Routine Extremities Exam Extremities: Present full ROM and pulses intact; Absent cyanosis, clubbing or edema Comments: enduration to right groin extended to thigh *Routine Skin Exam Skin: Present dry and warm *Routine Neurological Exam Neurological: Present alert, oriented X3, normal reflexes, moving all extremities and normal speech Routine Psychiatric Exam Psychiatric: Present normal thought process, cooperative and anxious H&P: Result Imaging and Cardiology EKG: Status: image reviewed by me and Preliminary report Assessment and Plan *Assessment and plan (1) Postoperative hematoma involving circulatory system following circulatory system procedure: Status: Acute Category: Medical Code(s): I97.638 - Postprocedural hematoma of a circulatory system organ or structure following other circulatory system procedure (2) Hematoma of right thigh: Status: Acute Qualifiers: Encounter type: initial encounter Qualified Code(s): S70.11XA - Contusion of right thigh, initial encounter Category: Medical Code(s): S70.11XA - Contusion of right thigh, initial encounter (3) Essential hypertension: Status: Acute Category: Medical Code(s): I10 - Essential (primary) hypertension (4) Chest pain: Status: Acute Qualifiers: Chest pain type: unspecified Qualified Code(s): R07.9 - Chest pain, unspecified Category: Medical Code(s): R07.9 - Chest pain, unspecified (5) Anxiety: Status: Chronic Category: Medical Code(s): F41.9 - Anxiety disorder, unspecified (6) Tobacco user: Status: Chronic Category: Social Hx Code(s): Z72.0 - Tobacco use Plan 62-year-old female PMHx CAD with recurrent angina, HTN, cardiac pacemaker, anxiety and depression who had a left heart cath today. Access thru the right groin. She small bleeding after the procedure some direct pressure was held and she went home and subsequently had a significant increase in her bleeding at home with a large thigh hematoma. Discussed with ER for admission. Cardiology caonsulted. plan as follow: -hematoma to right thigh/groin secondary to surgical access, after left heart cath procedure: Admit patient for further monitoring. Dispo med surg cont cardiac monitoring. pressure dressing applied at ER. reinforced. Applied sand bag monitor for pulse or circulation monitor for pain Cardiology consulted held anticoagulant repeat labs in the morning - HTN: stable. reviewd. resume home meds - Anxiety: on diazepamn and buspar Tobacco: On nicotine patch Full code. Patient is seen and evaluated at bedside, reviewed patient chart, discussed POC with patient, please see same date H&P for further recommendations
[2023-06-13 19:53] VITALS: BP 154/94; PULSE 71; RESP 18; TEMP 36.8; O2SAT 97
--- NOTE | 2023-06-13 19:54 | PC.NURSE ---
Direct pressure held to pt right femoral for 30 min, Dr Powell applied pressure bandage prior to pressure. Pt will be admitted and go to floor by stretcher
[2023-06-13 20:10] LABS: Basophils # 0.1 K/mm3 (0-0.2); Basophils % 0.8 % (0.1-2.0); Eosinophils # 0.2 K/mm3 (0.0-0.4); Eosinophils % 2.4 % (0.1-12.0); Lymphocytes # 2.5 K/mm3 (0.7-4.5); Lymphocytes % 28.9 % (10-50); Mean Corpuscular HGB Conc 33.5 g/dL (31.8-35.4); Mean Corpuscular Hemoglobin 30.6 pg (27.0-31.2); Mean Corpuscular Volume 91.2 fl (81-99); Mean Platelet Volume 7.3 fl (7.4-10.4); Monocytes # 0.5 K/mm3 (0.1-1.0); Monocytes % 5.9 % (1.7-9.3); Neutrophils # 5.4 K/mm3 (1.8-7.8); Neutrophils % 61.9 % (37.0-80.0); Platelet Count 345 K/mm3 (142-424); Red Blood Count 4.05 M/mm3 (4.20-5.40); Red Cell Distribution Width 14.4 % (11.5-17.5); White Blood Count 8.8 K/mm3 (4.8-10.8)
--- NOTE | 2023-06-13 20:13 | PC.NURSE ---
Patient arrived to floor via stretcher from ED at 20:06.
[2023-06-13] MEDS: 0.9 % SODIUM CHLORIDE 1000ML 1,000 ML 50 ML IV (20:19)
[2023-06-13 20:20] VITALS: PULSE 70
[2023-06-13 20:22] LABS: Hemoglobin 12.4 g/dL (12.2-16.2)
[2023-06-13 20:23] LABS: Activated Partial Thrombo Time 30.8 seconds (22.8-30.6); INR 1.01 (0.9-1.1); Prothrombin Time 10.9 seconds (10.1-12.5)
[2023-06-13 20:26] VITALS: BP 161/76; PULSE 71; RESP 17; TEMP 36.8; O2SAT 100; BMI 25.2
[2023-06-13 20:34] LABS: Alanine Aminotransferase 17 U/L (12-78); Albumin Level 3.5 g/dl (3.5-5.0); Albumin/Globulin Ratio 1.3 (1.1-1.8); Alkaline Phosphatase 100 U/L (38-126); Anion Gap 13.9 mEq/L (5-15); Aspartate Amino Transferase 29 U/L (14-36); Bilirubin,Total 0.4 mg/dl (0.2-1.3); Blood Urea Nitrogen 20 mg/dl (7-17); Calcium 9.2 mg/dl (8.4-10.2); Carbon Dioxide 22 mmol/L (22.0-30.0); Chloride 106 mmol/L (98-107); Creatinine Clearance Estimated 47 mL/min (50-200); Estimated Glomerular Filt Rate 33 ml/min (>60); GFR (African American) 40 ML/MIN (>60); Globulin 2.7 g/dL (1.3-3.2); Glucose 122 mg/dl (74-100); Sodium 139 mmol/L (136-145); Total Protein,Serum 6.2 g/dl (6.3-8.2)
[2023-06-13 20:36] LABS: Potassium 2.9 mmoL/L (3.5-5.1)
[2023-06-13] MEDS: KCl 20mEq/100ml 100 ML 50 MEQ IV ×2 (20:56→23:37)
[2023-06-14] VITALS (7 sets, daily range): BP systolic 106–162; BP diastolic 62–81; PULSE 69–80; RESP 16–18; TEMP 36.7–36.9; O2SAT 96–99; BMI 25.2
[2023-06-14] MEDS: KCl 20mEq/100ml 100 ML 50 MEQ IV (01:32)
[2023-06-14] MEDS: IBUPROFEN 400 MG TABLET PO (04:43)
[2023-06-14 06:35] LABS: Eosinophils # 0.2 K/mm3 (0.0-0.4); Eosinophils % 3.2 % (0.1-12.0); Monocytes # 0.4 K/mm3 (0.1-1.0); Neutrophils # 4.1 K/mm3 (1.8-7.8); Platelet Count 336 K/mm3 (142-424)
[2023-06-14 06:46] LABS: Alanine Aminotransferase 15 U/L (12-78); Albumin Level 3.3 g/dl (3.5-5.0); Albumin/Globulin Ratio 1.2 (1.1-1.8); Alkaline Phosphatase 99 U/L (38-126); Anion Gap 6.8 mEq/L (5-15); Aspartate Amino Transferase 22 U/L (14-36); Bilirubin,Total 0.4 mg/dl (0.2-1.3); Blood Urea Nitrogen 18 mg/dl (7-17); Calcium 9.1 mg/dl (8.4-10.2); Carbon Dioxide 25 mmol/L (22.0-30.0); Chloride 110 mmol/L (98-107); Creatinine Clearance Estimated 50 mL/min (50-200); Estimated Glomerular Filt Rate 35 ml/min (>60); GFR (African American) 43 ML/MIN (>60); Globulin 2.7 g/dL (1.3-3.2); Glucose 99 mg/dl (74-100); Potassium 3.8 mmoL/L (3.5-5.1); Sodium 138 mmol/L (136-145)
[2023-06-14 06:56] LABS: Basophils % 0.6 % (0.1-2.0); Hematocrit 32.2 % (37.0-47.0); Lymphocytes # 2.2 K/mm3 (0.7-4.5); Mean Corpuscular HGB Conc 33.8 g/dL (31.8-35.4); Mean Corpuscular Hemoglobin 30.1 pg (27.0-31.2); Mean Platelet Volume 7.4 fl (7.4-10.4); Monocytes % 5.6 % (1.7-9.3); Neutrophils % 58.6 % (37.0-80.0); Red Blood Count 3.61 M/mm3 (4.20-5.40); Red Cell Distribution Width 14.4 % (11.5-17.5)
[2023-06-14 07:07] LABS: Hemoglobin 10.9 g/dL (12.2-16.2)
--- NOTE | 2023-06-14 07:55 | HMH.PHAINT1 ---
Pharmacy Intervention Comments: home medication list verified using list from outpatient pharmacy
--- NOTE | 2023-06-14 09:18 | P.CONCA_ITS ---
History of Present Illness History of Present Illness Consult date: 06/14/23 Requesting physician: Saman Chun Consult reason: chest pain Chief complaint: right groin hematoma after procedure History of present illness: This is a 62-year-old female PMHx CAD with recurrent angina, HTN, cardiac pacemaker, anxiety and depression who had a left heart cath today. Access thru the right groin. She small bleeding after the procedure some direct pressure was held and she went home and subsequently had a significant increase in her bleeding at home with a large thigh hematoma that prompted a return visit to the emergency department. She is still taking her aspirin and Brillinta. Denies any other symptoms at the moment. Admitted for further monitoring and management. The above per Girma Mccullough APRN The above events confirmed with the patient. Patient does relate some nausea and vomiting Tuesday and Tuesday which may have contributed to her hypokalemia. Her right groin upper thigh area is swollen with some bruising this morning which seems to be stable overnight. She denies any abdominal complaints. She has chronic upper back discomfort and some sternal/xiphoid area discomfort. Left heart catheterization showed [place] three-vessel disease with patent bypasses (ZELAYA to LAD, SVG skip graft to OM 1 and OM 2). Mild dehydration improved with IV fluids overnight. Potassium has improved to 3.8 today [facility] Disclaimer: The information contained in this section may have been updated after the patient was seen, as this information can be updated by other users. Medical History Abnormal drug screen Anxiety Cardiac pacemaker in situ Carotid stent occlusion Cervical radiculopathy Depression GERD (gastroesophageal reflux disease) Hx of Moreno's esophagus. Long standing PPI use Hyperlipidemia Patient will need a lipid panel at her next visit. Hypertension BP Today is 138/81. She is on HCTZ, losartan and metoprolol. She is to check her BP at home, record these values and bring them back to the clinic. Insomnia Neuropathy RBBB Vitamin D deficiency (~09/15/17) Patient is on vitamin D supplementation. Vomiting Will treat with Phenerghan temporarily Surgical History H/O removal of cyst History of History of permanent cardiac pacemaker placement Hx of CABG S/P laparoscopic cholecystectomy Family History Other No significant family history Social History (Updated 06/13/23 @ 13:08 by Luisa Grajeda RN) Smoking Status: Current every day smoker tobacco type: cigarettes packs per day: 1 alcohol intake: never substance use type: marijuana current occupational status: disabled Travel in the last 8 weeks: Inside the [place] household members: children housing: house lives independently: Yes marital status: single current occupational exposures/hazards: No caffeine: Yes special [place] needs: No agree to transfusion: No do you feel safe at home: Yes victim of physical abuse: No victim of emotional abuse: No victim of sexual abuse: No would you like helpful sources: No Review of Systems Review of Systems Review of systems:: pertinent systems reviewed and negative unless documented below *Cardiovascular Cardiovascular: Reports chest pain *Gastrointestinal Gastrointestinal: Reports nausea and Reports vomiting *Musculoskeletal Musculoskeletal: Reports back pain Exam Data for Last 24 hours Vital signs and Labs for Last 24 Hours: Temp Pulse Resp BP Pulse Ox O2 Del Method 98.1 F 80 16 134/81 98 Room Air 06/14/23 07:36 06/14/23 08:02 06/14/23 07:36 06/14/23 07:36 06/14/23 07:36 06/14/23 07:36 Laboratory Results - last 24 hr 06/13/23 19:55: WBC 8.8, RBC 4.05 L, Hgb 12.4 D, Hct 37.0, MCV 91.2, MCH 30.6, MCHC 33.5, RDW 14.4, Plt Count 345, MPV 7.3 L, Neut % (Auto) 61.9, Lymph % (Auto) 28.9, [place] % (Auto) 5.9, Eos % (Auto) 2.4, Baso % (Auto) 0.8, Neut # (Auto) 5.4, Lymph # (Auto) 2.5, [place] # (Auto) 0.5, Eos # (Auto) 0.2, Baso # (Auto) 0.1, PT 10.9, INR 1.01, APTT 30.8 H, Sodium 139, Potassium 2.9 L*, Chloride 106, Carbon Dioxide 22, Anion Gap 13.9, BUN 20 H, Creatinine 1.60 H, Estimated Creat Clear 47, Estimated GFR 33 L, Est GFR ( Amer) 40 L, Glucose 122 H, Calcium 9.2, Total Bilirubin 0.4, AST 29, ALT 17, Alkaline Phosphatase 100, Total Protein 6.2 L, Albumin 3.5, Globulin 2.7, Albumin/Globulin Ratio 1.3, Blood Type O Positive, Antibody Screen Negative 06/14/23 05:51: WBC 7.0, RBC 3.61 L, Hgb 10.9 L D, Hct 32.2 L, MCV 89.0, MCH 30.1, MCHC 33.8, RDW 14.4, Plt Count 336, MPV 7.4, Neut % (Auto) 58.6, Lymph % (Auto) 32.0, [place] % (Auto) 5.6, Eos % (Auto) 3.2, Baso % (Auto) 0.6, Neut # (Auto) 4.1, Lymph # (Auto) 2.2, [place] # (Auto) 0.4, Eos # (Auto) 0.2, Baso # (Auto) 0.0, Sodium 138, Potassium 3.8 D, Chloride 110 H, Carbon Dioxide 25, Anion Gap 6.8, BUN 18 H, Creatinine 1.50 H, Estimated Creat Clear 50, Estimated GFR 35 L, Est GFR ( Amer) 43 L, Glucose 99, Calcium 9.1, Total Bilirubin 0.4, AST 22, ALT 15, Alkaline Phosphatase 99, Total Protein 6.0 L, Albumin 3.3 L , Globulin 2.7, Albumin/Globulin Ratio 1.2 I & O for Last 24 hours: Intake & Output 06/11/23 06/12/23 06/13/23 06/14/23 11:59 11:59 11:59 11:59 Intake Total 910 / 910 Output Total 500 / 500 Balance 410 / 410 Weight 176 lb 8 oz Constitutional Constitutional: no acute distress *Routine Respiratory Exam Respiratory: Present CTA bilaterally *Routine Cardiovascular Exam Cardiovascular: Present RRR *Routine Extremities Exam Comments: Swelling/hematoma noted in the right upper thigh area. No appreciable pulsatile masses in the femoral area. No abdominal discomfort to palpation. Good pedal pulses bilaterally. *Routine Neurological Exam Neurological: Present alert, oriented X3 and CN II-XII intact Meds Home Medications and Allergies Home Medications Medication Instructions Recorded Confirmed Type aspirin 81 mg tablet,delayed 81 mg PO DAILY Heart disease #90 03/17/20 06/13/23 Rx release tabs fluticasone propionate 50 1 spray intranasal DAILY allergies 08/30/22 06/14/23 History mcg/actuation nasal spray,suspension albuterol sulfate 90 mcg/actuation See Rx Instructions .Route 11/12/22 06/13/23 Rx aerosol inhaler (ProAir HFA) .COMPLEX Breathing problems #6.7 grams atorvastatin 80 mg tablet (Lipitor) 80 mg PO HS #90 tabs 11/22/22 06/13/23 Rx ticagrelor 90 mg tablet (Brilinta) 90 mg PO BID Blood thinner #180 05/11/23 06/13/23 Rx tabs bupropion HCl 300 mg 24 hr tablet, 300 mg PO DAILY 30 days #30 tabs 05/23/23 06/13/23 Rx extended release nitroglycerin 0.4 mg sublingual 0.4 mg sublingual Q5M PRN chest 05/23/23 06/13/23 Rx tablet pain #20 tabs diazepam 10 mg tablet 5 mg PO TID 06/13/23 06/13/23 History budesonide-formoterol HFA 80 1 puff inhalation BID 06/14/23 06/14/23 History mcg-4.5 mcg/actuation aerosol inhaler (Symbicort) ergocalciferol (vitamin D2) 1,250 50,000 unit PO WEEKLY 06/14/23 06/14/23 History mcg (50,000 unit) capsule evolocumab 140 mg/mL subcutaneous 140 mg SQ Q2W #1 mL 06/14/23 Rx pen injector (Maral Campos) ezetimibe 10 mg tablet 10 mg PO HS 06/14/23 06/14/23 History famotidine 20 mg tablet (Acid 20 mg PO DAILY 06/14/23 06/13/23 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)) fluconazole 100 mg tablet 100 mg PO DAILY 06/14/23 06/14/23 History gabapentin 300 mg capsule 300 mg PO TID neuropathic pain 06/14/23 06/13/23 History hydrochlorothiazide 25 mg tablet 25 mg PO DAILY 06/14/23 06/14/23 History hydrocodone 7.5 mg-acetaminophen 1 tab PO TIDP PRN Moderate Pain 06/14/23 06/14/23 History 325 mg tablet (Scale Score 5-6) isosorbide mononitrate 30 mg 30 mg PO DAILY 06/14/23 06/13/23 History tablet,extended release 24 hr lidocaine 5 % topical patch 1 patch topical DAILY 06/14/23 06/14/23 History losartan 100 mg tablet 100 mg PO DAILY 06/14/23 06/14/23 History metoprolol succinate 25 mg 25 mg PO DAILY 06/14/23 06/14/23 History tablet,extended release 24 hr nicotine 14 mg/24 hr daily 1 patch topical DAILY 06/14/23 06/14/23 History transdermal patch omeprazole 40 mg capsule,delayed 40 mg PO DAILY 06/14/23 06/14/23 History release New Prescriptions to Start Prescriptions: Allergies Allergy/AdvReac Type Severity Reaction Status Date / Time codeine Allergy Intermediate Verified 06/13/23 13:12 acetaminophen [From Tylenol] Allergy Mild Verified 06/13/23 13:12 cephalexin Allergy Unknown Verified 06/13/23 13:12 doxycycline Allergy Unknown Verified 06/13/23 13:12 tramadol Allergy Unknown Verified 06/13/23 13:12 Assessment and Plan *Assessment and plan (1) Postoperative hematoma involving circulatory system following circulatory system procedure: Status: Acute Category: Medical Code(s): I97.638 - Postprocedural hematoma of a circulatory system organ or structure fol lowing other circulatory system procedure (2) Hematoma of right thigh: Status: Acute Qualifiers: Encounter type: initial encounter Qualified Code(s): S70.11XA - Contusion of right thigh, initial encounter Category: Medical Code(s): S70.11XA - Contusion of right thigh, initial encounter (3) Coronary artery disease involving autologous artery coronary bypass graft: Status: Acute Qualifiers: Associated angina: without angina Qualified Code(s): I25.810 - Atherosclerosis of coronary artery bypass graft(s) without angina pectoris Category: Medical Code(s): I25.810 - Atherosclerosis of coronary artery bypass graft(s) without angina pectoris (4) Tobacco abuse counseling: Problem Comment: Strongly encouraged to quit. She has decreased her use and the patch is helping. 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 We need to get her into see renal. Status: Acute Category: Medical Code(s): N18.32 - Chronic kidney disease, stage 3b (6) Chronic GERD: Status: Acute Category: Medical Code(s): K21.9 - Gastro-esophageal reflux disease without esophagitis (7) Hypertensive heart disease: Problem Comment: See above. Status: Chronic Qualifiers: Heart failure presence: without heart failure Qualified Code(s): I11.9 - Hypertensive heart disease without heart failure Category: Medical Code(s): I11.9 - Hypertensive heart disease without heart failure (8) Hypokalemia: Status: Acute Category: Medical Code(s): E87.6 - Hypokalemia (9) Vomiting: Problem Comment: Will treat with Phenerghan temporarily Status: Acute Qualifiers: Nausea presence: with nausea Vomiting Intractability: non-intractable Vomiting type: unspecified Qualified Code(s): R11.2 - Nausea with vomiting, unspecified Category: Medical Code(s): R11.10 - Vomiting, unspecified (10) Hyperlipidemia: Problem Comment: Patient will need a lipid panel at her next visit. Status: Chronic Qualifiers: Hyperlipidemia type: unspecified Qualified Code(s): E78.5 - Hyperl ipidemia, unspecified Category: Medical Code(s): E78.5 - Hyperlipidemia, unspecified (11) Anxiety: Status: Chronic Category: Medical Code(s): F41.9 - Anxiety disorder, unspecified Plan 1. Femoral artery bleed after left heart catheterization Access with upper thigh hematoma now controlled. -Mild drop in hemoglobin from 12.4-10.9 -Right groin ultrasound today and if no evidence of pseudoaneurysm then patient could be discharged home 2. CAD with history of bypass, patent bypass arteries noted yesterday -Continue home antianginal medication -DENILSON to SVG in 11/2021. OK to stop brilinta. Continue ASA. 3. History of chronic recurrent vomiting and diarrhea -Previous upper and lower GI scopes without 4. CKD, stage III -Patient has appointment with nephrology in the near future 5. Hypokalemia, resolved with supplementation 6. Tobacco use, cessation recommended 7. Chronic pain syndrome on chronic pain medication 8. Anxiety Right groin ultrasound shows evidence of pseudoaneurysm measuring 5 cm by 4 cm on early review. Discussed with Dr. Dyson and Dr. Chun and will plan to transfer to for Vascular Surgery. Strict bed rest with frequent groin checks. No incline greater than 30 degrees.
[2023-06-14] MEDS: TICAGRELOR 90MG TABLET 90 MG PO (11:34)
[2023-06-14] MEDS: METOPROLOL SUCCINATE XL 25MG TABLET 25 MG PO (11:34)
--- NOTE | 2023-06-14 11:42 | CA_ITS ---
FINAL REPORT CLINICAL HISTORY: SWELLING AND BRUISING RIGHT GROIN S/P CATH 06/13/23 COMPARISON: None FINDINGS: ULTRASOUND VASCULAR ARTERIAL LOWER EXTREMITY LIMITED, RIGHT FINDINGS: Limited Doppler evaluation of the groin demonstrates a pseudoaneurysm. There is a 5.3 x 4.5 focus of turbulent flow anterior and lateral to the common femoral artery, bilobed with a narrow neck. This result was given to the PA caring for the patient at [facility] 06/14/2023 at approximately noon. IMPRESSION: Bilobed 5.3 x 4.5 cm pseudoaneurysm anterior and lateral to the common femoral artery as described, with a narrow neck. Reviewed, Interpreted and Dictated by Jaime Hardy MD Transcribed by Jo Mendoza Authenticated and . [facility]
[2023-06-14] MEDS: GABAPENTIN 300MG CAPSULE 300 MG PO (12:56)
[2023-06-14] MEDS: diazePAM 5MG TABLET 5 MG PO (12:56)
[2023-06-14] MEDS: MORPHINE 2MG/ML SYRINGE 2 MG IV (13:58)
--- NOTE | 2023-06-14 16:25 | EXP.PN ---
Subjective *Date: 06/14/23 *Time: 16:32 Interval history: She has R groin swelling, denied CP, SOB, N/V, Abdominal Pain Exam Data for Last 24 hours Vital signs and Labs for Last 24 Hours: Temp Pulse Resp BP Pulse Ox O2 Del Method 98.5 F 69 16 161/76 H 99 Room Air 06/14/23 16:00 06/14/23 16:00 06/14/23 16:00 06/14/23 16:00 06/14/23 16:00 06/14/23 16:00 Laboratory Results - last 24 hr 06/13/23 19:55: WBC 8.8, RBC 4.05 L, Hgb 12.4 D, Hct 37.0, MCV 91.2, MCH 30.6, MCHC 33.5, RDW 14.4, Plt Count 345, MPV 7.3 L, Neut % (Auto) 61.9, Lymph % (Auto) 28.9, [place] % (Auto) 5.9, Eos % (Auto) 2.4, Baso % (Auto) 0.8, Neut # (Auto) 5.4, Lymph # (Auto) 2.5, [place] # (Auto) 0.5, Eos # (Auto) 0.2, Baso # (Auto) 0.1, PT 10.9, INR 1.01, APTT 30.8 H, Sodium 139, Potassium 2.9 L*, Chloride 106, Carbon Dioxide 22, Anion Gap 13.9, BUN 20 H, Creatinine 1.60 H, Estimated Creat Clear 47, Estimated GFR 33 L, Est GFR ( Amer) 40 L, Glucose 122 H, Calcium 9.2, Total Bilirubin 0.4, AST 29, ALT 17, Alkaline Phosphatase 100, Total Protein 6.2 L, Albumin 3.5, Globulin 2.7, Albumin/Globulin Ratio 1.3, Blood Type O Positive, Antibody Screen Negative 06/14/23 05:51: WBC 7.0, RBC 3.61 L, Hgb 10.9 L D, Hct 32.2 L, MCV 89.0, MCH 30.1, MCHC 33.8, RDW 14.4, Plt Count 336, MPV 7.4, Neut % (Auto) 58.6, Lymph % (Auto) 32.0, [place] % (Auto) 5.6, Eos % (Auto) 3.2, Baso % (Auto) 0.6, Neut # (Auto) 4.1, Lymph # (Auto) 2.2, [place] # (Auto) 0.4, Eos # (Auto) 0.2, Baso # (Auto) 0.0, Sodium 138, Potassium 3.8 D, Chloride 110 H, Carbon Dioxide 25, Anion Gap 6.8, BUN 18 H, Creatinine 1.50 H, Estimated Creat Clear 50, Estimated GFR 35 L, Est GFR ( Amer) 43 L, Glucose 99, Calcium 9.1, Total Bilirubin 0.4, AST 22, ALT 15, Alkaline Phosphatase 99, Total Protein 6.0 L, Albumin 3.3 L, Globulin 2.7, Albumin/Globulin Ratio 1.2 I & O for Last 24 hours: Intake & Output 06/11/23 06/12/23 06/13/23 06/14/23 23:59 23:59 23:59 23:59 Intake Total 640 / 640 540 / 540 Output Total 500 / 500 Balance 640 / 640 40 / 40 Weight 80.059 kg 80.059 kg Constitutional Constitutional: no acute distress *Routine HEENT Exam Head: Present normocephalic Eye: Present EOMI and PERRL ENT: Present mucous membranes moist *Routine Neck Exam Neck: Present supple; Absent lymphadenopathy *Routine Respiratory Exam Respiratory: Present CTA bilaterally *Routine Cardiovascular Exam Cardiovascular: Present RRR *Routine Abdominal Exam Abdominal: Present soft and normoactive bowel sounds; Absent tenderness *Routine Extremities Exam Extremities: Absent cyanosis, clubbing or edema Comments: R groin is swollen, non pulsating. has intact pulses *Routine Skin Exam Skin: Present warm; Absent rash *Routine Neurological Exam Neurological: Present alert and oriented X3 Assessment and Plan *Assessment and plan (1) Postoperative hematoma involving circulatory system following circulatory system procedure: Status: Acute Category: Medical Code(s): I97.638 - Postprocedural hematoma of a circulatory system organ or structure following other circulatory system procedure (2) Hematoma of right thigh: Status: Acute Qualifiers: Encounter type: initial encounter Qualified Code(s): S70.11XA - Contusion of right thigh, initial encounter Category: Medical Code(s): S70.11XA - Contusion of right thigh, initial encounter (3) Essential hypertension: Status: Acute Category: Medical Code(s): I10 - Essential (primary) hypertension (4) Chest pain: Status: Acute Qualifiers: Chest pain type: unspecified Qualified Code(s): R07.9 - Chest pain, unspecified Category: Medical Code(s): R07.9 - Chest pain, unspecified (5) Anxiety: Status: Chronic Category: Medical Code(s): F41.9 - Anxiety disorder, unspecified (6) Tobacco user: Status: Chronic Category: Social Hx Code(s): Z72.0 - Tobacco use Plan 62-year-old female PMHx CAD with recurrent angina, HTN, cardiac pacemaker, anxiety and depression who had a left heart cath today. Access thru the right groin. She small bleeding after the procedure some direct pressure was held and she went home and subsequently had a significant increase in her bleeding at home with a large thigh hematoma. Discussed with ER for admission. Cardiology caonsulted. plan as follow: -Hematoma to right thigh/groin secondary to surgical access, after left heart cath procedure: Admit patient for further monitoring. Dispo med surg cont cardiac monitoring. Pseudoaneurysm formation at Cath site on US results Cardiology recs transfer to - HTN: stable. reviewed. resume home meds - Anxiety: on diazepamn and buspar Tobacco: On nicotine patch Full code. Nafisa to transfer to [facility] for vascular surgery evaluation
--- NOTE | 2023-06-14 17:20 | P.DS_ITS ---
General Admission date:: 06/13/23 Discharge date: 06/14/23 HPI HPI HPI: This is a 62-year-old female PMHx CAD with recurrent angina, HTN, cardiac pacemaker, anxiety and depression who had a left heart cath today. Access thru the right groin. She small bleeding after the procedure some direct pressure was held and she went home and subsequently had a significant increase in her bleeding at home with a large thigh hematoma that prompted a return visit to the emergency department. She is still taking her aspirin and Brillinta. Denies any other symptoms at the moment. Admitted for further monitoring and man agement. Hospital Course Hospital Course Hospital Course: see same date progress note,. Spoke with the vascular surgeon at , they recommended patient be close charge from the hospital and see them in the clinic first thing in the morning. They mentioned patient is safe to be discharged from [facility] and come see clinic in the morning. Patient and informed, they agree with the decision of discharge and seeing vascular surgery in the office. Patient did not have any questions, they verbalized understanding, patient and at the bedside are on the same page and wanted to proceed with the discharge plan Exam Data for Last 24 hours Vital signs and Labs for Last 24 Hours: Temp Pulse Resp BP Pulse Ox O2 Del Method 98.5 F 69 16 161/76 H 99 Room Air 06/14/23 16:00 06/14/23 16:00 06/14/23 16:00 06/14/23 16:00 06/14/23 16:00 06/14/23 16:36 Laboratory Results - last 24 hr 06/13/23 19:55: WBC 8.8, RBC 4.05 L, Hgb 12.4 D, Hct 37.0, MCV 91.2, MCH 30.6, MCHC 33.5, RDW 14.4, Plt Count 345, MPV 7.3 L, Neut % (Auto) 61.9, Lymph % (Auto) 28.9, Ogle % (Auto) 5.9, Eos % (Auto) 2.4, Baso % (Auto) 0.8, Neut # (Auto) 5.4, Lymph # (Auto) 2.5, Ogle # (Auto) 0.5, Eos # (Auto) 0.2, Baso # (Auto) 0.1, PT 10.9, INR 1.01, APTT 30.8 H, Sodium 139, Potassium 2.9 L*, Chloride 106, Carbon Dioxide 22, Anion Gap 13.9, BUN 20 H, Creatinine 1.60 H, Estimated Creat Clear 47, Estimated GFR 33 L, Est GFR ( Amer) 40 L, Glucose 122 H, Calcium 9.2, Total Bilirubin 0.4, AST 29, ALT 17, Alkaline Phosphatase 100, Total Protein 6.2 L, Albumin 3.5, Globulin 2.7, Albumin/Globulin Ratio 1.3, Blood Type O Positive, Antibody Screen Negative 06/14/23 05:51: WBC 7.0, RBC 3.61 L, Hgb 10.9 L D, Hct 32.2 L, MCV 89.0, MCH 30.1, MCHC 33.8, RDW 14.4, Plt Count 336, MPV 7.4, Neut % (Auto) 58.6, Lymph % (Auto) 32.0, Ogle % (Auto) 5.6, Eos % (Auto) 3.2, Baso % (Auto) 0.6, Neut # (Auto) 4.1, Lymph # (Auto) 2.2, Ogle # (Auto) 0.4, Eos # (Auto) 0.2, Baso # (Auto) 0.0, Sodium 138, Potassium 3.8 D, Chloride 110 H, Carbon Dioxide 25, Anion Gap 6.8, BUN 18 H, Creatinine 1.50 H, Estimated Creat Clear 50, Estimated GFR 35 L, Est GFR ( Amer) 43 L, Glucose 99, Calcium 9.1, Total Bilirubin 0.4, AST 22, ALT 15, Alkaline Phosphatase 99, Total Protein 6.0 L, Albumin 3.3 L , Globulin 2.7, Albumin/Globulin Ratio 1.2 I & O for Last 24 hours: Intake & Output 06/11/23 06/12/23 06/13/23 06/14/23 23:59 23:59 23:59 23:59 Intake Total 640 / 640 540 / 540 Output Total 500 / 500 Balance 640 / 640 40 / 40 Weight 80.059 kg 80.059 kg Constitutional Comments: see same date progress note Results Data Completed and Pending Labs on day of discharge: Labs from last 24 hours 06/14/23 06/13/23 05:51 19:55 WBC 7.0 8.8 RBC 3.61 L 4.05 L Hgb 10.9 L D 12.4 D Hct 32.2 L 37.0 MCV 89.0 91.2 MCH 30.1 30.6 MCHC 33.8 33.5 RDW 14.4 14.4 Plt Count 336 345 MPV 7.4 7.3 L Neut % (Auto) 58.6 61.9 Lymph % (Auto) 32.0 28.9 Ogle % (Auto) 5.6 5.9 Eos % (Auto) 3.2 2.4 Baso % (Auto) 0.6 0.8 Neut # (Auto) 4.1 5.4 Lymph # (Auto) 2.2 2.5 Ogle # (Auto) 0.4 0.5 Eos # (Auto) 0.2 0.2 Baso # (Auto) 0.0 0.1 PT 10.9 INR 1.01 APTT 30.8 H Sodium 138 139 Potassium 3.8 D 2.9 L* Chloride 110 H 106 Carbon Dioxide 25 22 Anion Gap 6.8 13.9 BUN 18 H 20 H Creatinine 1.50 H 1.60 H Estimated Creat Clear 50 47 Estimated GFR 35 L 33 L Est GFR ( Amer) 43 L 40 L Glucose 99 122 H Calcium 9.1 9.2 Total Bilirubin 0.4 0.4 AST 22 29 ALT 15 17 Alkaline Phosphatase 99 100 Total Protein 6.0 L 6.2 L Albumin 3.3 L 3.5 Globulin 2.7 2.7 Albumin/Globulin Ratio 1.2 1.3 Blood Type O Positive Antibody Screen Negative DS: Diagnosis Discharge Diagnosis (1) Postoperative hematoma involving circulatory system following circulatory system procedure: Status: Acute Code(s): I97.638 - Postprocedural hematoma of a circulatory system organ or structure following other circulatory system procedure (2) Hematoma of right thigh: Status: Acute Code(s): S70.11XA - Contusion of right thigh, initial encounter Qualifiers: Encounter type: initial encounter Qualified Code(s): S70.11XA - Contusion of right thigh, initial encounter (3) Essential hypertension: Status: Acute Code(s): I10 - Essential (primary) hypertension (4) Chest pain: Status: Acute Code(s): R07.9 - Chest pain, unspecified Qualifiers: Chest pain type: unspecified Qualified Code(s): R07.9 - Chest pain, unspecified (5) Anxiety: Status: Chronic Code(s): F41.9 - Anxiety disorder, unspecified (6) Tobacco user: Status: Chronic Code(s): Z72.0 - Tobacco use Meds Home Medications and Allergies Home Medications Medication Instructions Recorded Confirmed Type aspirin 81 mg tablet,delayed 81 mg PO DAILY Heart disease #90 03/17/20 06/13/23 Rx release tabs fluticasone propionate 50 1 spray intranasal DAILY allergies 08/30/22 06/14/23 History mcg/actuation nasal spray,suspension albuterol sulfate 90 mcg/actuation See Rx Instructions .Route 11/12/22 06/13/23 Rx aerosol inhaler (ProAir HFA) .COMPLEX Breathing problems #6.7 grams atorvastatin 80 mg tablet (Lipitor) 80 mg PO HS #90 tabs 11/22/22 06/13/23 Rx ticagrelor 90 mg tablet (Brilinta) 90 mg PO BID Blood thinner #180 05/11/23 06/13/23 Rx tabs bupropion HCl 300 mg 24 hr tablet, 300 mg PO DAILY 30 days #30 tabs 05/23/23 0 06/13/23 Rx extended release nitroglycerin 0.4 mg sublingual 0.4 mg sublingual Q5M PRN chest 05/23/23 06/13/23 Rx tablet pain #20 tabs diazepam 10 mg tablet 5 mg PO TID 06/13/23 06/13/23 History budesonide-formoterol HFA 80 1 puff inhalation BID 06/14/23 06/14/23 History mcg-4.5 mcg/actuation aerosol inhaler (Symbicort) ergocalciferol (vitamin D2) 1,250 50,000 unit PO WEEKLY 06/14/23 06/14/23 History mcg (50,000 unit) capsule evolocumab 140 mg/mL subcutaneous 140 mg SQ Q2W #1 mL 06/14/23 Rx pen injector (Repatha Rosalinaick) ezetimibe 10 mg tablet 10 mg PO HS 06/14/23 06/14/23 History famotidine 20 mg tablet (Acid 20 mg PO DAILY 06/14/23 06/13/23 History Weatherization And Housing Inspector (famotidine)) fluconazole 100 mg tablet 100 mg PO DAILY 06/14/23 06/14/23 History gabapentin 300 mg capsule 300 mg PO TID neuropathic pain 06/14/23 06/13/23 History hydrochlorothiazide 25 mg tablet 25 mg PO DAILY 06/14/23 06/14/23 History hydrocodone 7.5 mg-acetaminophen 1 tab PO TIDP PRN Moderate Pain 06/14/23 06/14/23 History 325 mg tablet (Scale Score 5-6) isosorbide mononitrate 30 mg 30 mg PO DAILY 06/14/23 06/13/23 History tablet,extended release 24 hr lidocaine 5 % topical patch 1 patch topical DAILY 06/14/23 06/14/23 History losartan 100 mg tablet 100 mg PO DAILY 06/14/23 06/14/23 History metoprolol succinate 25 mg 25 mg PO DAILY 06/14/23 06/14/23 History tablet,extended release 24 hr nicotine 14 mg/24 hr daily 1 patch topical DAILY 06/14/23 06/14/23 History transdermal patch omeprazole 40 mg capsule,delayed 40 mg PO DAILY 06/14/23 06/14/23 History release New Prescriptions to Start Prescriptions: Allergies Allergy/AdvReac Type Severity Reaction Status Date / Time codeine Allergy Intermediate Verified 06/13/23 13:12 acetaminophen [From Tylenol] Allergy Mild Verified 06/13/23 13:12 cephalexin Allergy Unknown Verified 06/13/23 13:12 doxycycline Allergy Unknown Verified 06/13/23 13:12 tramadol Allergy Unknown Verified 06/13/23 13:12 Discharge Plan Disposition Patient Disposition: Home, Self-Care Follow up Plan Follow up with: Prosper Dyson MD [Staff Physician] - 1 week Prescriptions/Medication Reconciliation: Continued bupropion HCl 300 mg tablet extended release 24 hr 300 mg PO DAILY 30 Days Qty: 30 2RF nitroglycerin 0.4 mg tablet, sublingual 0.4 mg sublingual Q5M PRN (Reason: chest pain) Qty: 20 0RF Rx Instructions: do not exceed 3 doses per episode diazepam 10 mg tablet 5 mg PO TID Patient Comments: take 1/2 tablet(5 mg) orally three times a day for Anxiety for 30 days albuterol sulfate [ProAir HFA] 90 mcg/actuation HFA aerosol inhaler See Rx Instructions .ROUTE .COMPLEX Qty: 6.7 0RF Rx Instructions: INHALE 1 PUFF EVERY 6 HOURS NEEDED FOR SHORTNESS OF BREATH atorvastatin [Lipitor] 80 mg tablet 80 mg PO HS Qty: 90 3RF Repatha SureClick 140 mg/mL pen injector 140 mg SQ Q2W Qty: 1 3RF fluticasone propionate 50 mcg/actuation spray,suspension 1 spray intranasal DAILY Rx Instructions: INSTILL 1 SPRAY INTO EACH NOSTRIL EVERY DAY fluconazole 100 mg tablet 100 mg PO DAILY Rx Instructions: take 1 tablet(100 mg) orally daily for 7 days nicotine 14 mg/24 hr patch 24 hour 1 patch topical DAILY Rx Instructions: APPLY 1 patch transdermally daily isosorbide mononitrate 30 mg tablet extended release 24 hr 30 mg PO DAILY omeprazole 40 mg capsule,delayed release(DR/EC) 40 mg PO DAILY Rx Instructions: TAKE 1 CAPSULE BY MOUTH EVERY DAY famotidine [Acid Weatherization And Housing Inspector (famotidine)] 20 mg tablet 20 mg PO DAILY hydrocodone-acetaminophen 7.5-325 mg tablet 1 tab PO TIDP PRN (Reason: Moderate Pain (Scale Score 5-6)) lidocaine 5 % adhesive patch,medicated 1 patch topical DAILY Rx Instructions: APPLY ONE PATCH DAILY LEAVE ON MOST PAINFUL AREA FOR UP TO 12 HOURS gabapentin 300 mg capsule 300 mg PO TID hydrochlorothiazide 25 mg tablet 25 mg PO DAILY Rx Instructions: TAKE ONE TABLET BY MOUTH EVERY DAY metoprolol succinate 25 mg tablet extended release 24 hr 25 mg PO DAILY Rx Instructions: TAKE ONE TABLET BY MOUTH EVERY DAY ergocalciferol (vitamin D2) 1,250 mcg (50,000 unit) capsule 50,000 unit PO WEEKLY Rx Instructions: TAKE ONE CAPSULE BY MOUTH WEEKLY DIRECTED losartan 100 mg tablet 100 mg PO DAILY Rx Instructions: TAKE ONE TABLET BY MOUTH DAILY ezetimibe 10 mg tablet 10 mg PO HS Rx Instructions: TAKE ONE TABLET BY MOUTH DAILY budesonide-formoterol [Symbicort] 80-4.5 mcg/actuation HFA aerosol inhaler 1 puff inhalation BID Rx Instructions: inhale 1 puff twice a day Held aspirin 81 mg tablet,delayed release (DR/EC) 81 mg PO DAILY Qty: 90 0RF Hold Instructions: Resume on 06/16/23. Brilinta 90 mg tablet 90 mg PO BID Qty: 180 3RF Hold Instructions: Resume on 06/16/23. Problem Reconciliation Problems Reviewed?: Yes Patient Discharge Instructions ACTIVITY: Bed rest DIET: continue same diet Additional Instructions: try to limit mobility, limited only to essential activities Patient Instructions: DI for Hematoma (Bruise) Providers Primary Care Provider: Jayant Novoa Admit Provider: Angelito Perez Attending Provider: Angelito Perez
--- NOTE | 2023-06-16 15:12 | CARE MANAGER ---
Unable to reach patient for patient r/t no VM available. Call attempted x 2.
== END 2023-06-14 17:52 | disposition home or self-care (01) ==
LOC: ER 19:20 → 2ND 19:32
PROVIDERS: Nurse Practitioner Family; Admitting Provider Internal Medicine Adolescent Medicine; Emergency Provider Student in an Organized Health Care Education/Training Program; PCP Internal Medicine; Visit Provider Internal Medicine Adolescent Medicine
DX: I97.638 Postprocedural hematoma of a circulatory system organ or structure following other circulatory system procedure (principal); F17.210 Nicotine dependence, cigarettes, uncomplicated; N18.32 Chronic kidney disease, stage 3b; I12.9 Hypertensive chronic kidney disease with stage 1 through stage 4 chronic kidney disease, or unspecified chronic kidney disease; E87.6 Hypokalemia; E78.5 Hyperlipidemia, unspecified; I25.118 Atherosclerotic heart disease of native coronary artery with other forms of angina pectoris; Z95.0 Presence of cardiac pacemaker; E55.9 Vitamin D deficiency, unspecified; Z79.899 Other long term (current) drug therapy
CPT/HCPCS: 36415; 80053; 85025; 85610; 85730; 86850; 93926; 99285; G0378

== ENCOUNTER 2023-06-20 14:44 | Outpatient (CLI) | payer OTHER, SELFPAY ==
[2023-06-20 15:01] LABS: Basophils # 0.1 K/mm3 (0-0.2); Basophils % 0.8 % (0.1-2.0); Eosinophils # 0.4 K/mm3 (0.0-0.4); Eosinophils % 4.1 % (0.1-12.0); Hemoglobin 9.9 g/dL (12.2-16.2); Lymphocytes # 2.8 K/mm3 (0.7-4.5); Lymphocytes % 29.6 % (10-50); Mean Corpuscular HGB Conc 34.2 g/dL (31.8-35.4); Mean Corpuscular Hemoglobin 31.2 pg (27.0-31.2); Mean Corpuscular Volume 91.2 fl (81-99); Mean Platelet Volume 7.5 fl (7.4-10.4); Monocytes # 0.5 K/mm3 (0.1-1.0); Monocytes % 5.6 % (1.7-9.3); Neutrophils # 5.6 K/mm3 (1.8-7.8); Neutrophils % 59.9 % (37.0-80.0); Platelet Count 486 K/mm3 (142-424); Red Blood Count 3.18 M/mm3 (4.20-5.40); Red Cell Distribution Width 14.8 % (11.5-17.5); White Blood Count 9.3 K/mm3 (4.8-10.8)
[2023-06-20 15:22] LABS: Anion Gap 9.4 mEq/L (5-15); Blood Urea Nitrogen 32 mg/dl (7-17); Calcium 9.3 mg/dl (8.4-10.2); Carbon Dioxide 28 mmol/L (22.0-30.0); Chloride 107 mmol/L (98-107); Estimated Glomerular Filt Rate 29 ml/min (>60); GFR (African American) 35 ML/MIN (>60); Glucose 91 mg/dl (74-100); Potassium 3.4 mmoL/L (3.5-5.1); Sodium 141 mmol/L (136-145)
[2023-06-20 15:46] LABS: Chol/HDL Ratio 5.8 (1-3.5); Cholesterol 239 mg/dl (140-200); HDL Cholesterol 41 mg/dl (40-60); Triglycerides 246 mg/dl (30-150); VLDL Cholesterol 49 mg/dL (0-40)
[2023-06-20 15:56] LABS: Direct LDL Cholesterol 121.22 mg/dL (100-129)
== END 2023-06-20 23:59 ==
LOC: LAB 14:45
PROVIDERS: PCP Internal Medicine; Visit Provider Internal Medicine
DX: I11.9 Hypertensive heart disease without heart failure (principal); I25.10 Atherosclerotic heart disease of native coronary artery without angina pectoris; E78.5 Hyperlipidemia, unspecified; I65.29 Occlusion and stenosis of unspecified carotid artery; Z95.0 Presence of cardiac pacemaker; F17.210 Nicotine dependence, cigarettes, uncomplicated
CPT/HCPCS: 36415; 80048; 80061; 85025

== ENCOUNTER 2023-09-26 10:10 | Inpatient (IN) | payer OTHER, SELFPAY ==
[2023-09-26] VITALS (32 sets, daily range): BP systolic 148–260; BP diastolic 60–136; PULSE 70–97; RESP 12–26; TEMP 36.6–37.1; O2SAT 93–99; BMI 24.3; BMI 26.6; BMI 24.4
--- NOTE | 2023-09-26 10:11 | ECG_ITS ---
APPROVED REPORT Exam: Resting ECG HR:76 bpm ECG Measurements Heart Rate 76 AXES MN 163 P 40 QRSd 155 QRS 81 QT 442 T 1 QTc 473 Conclusion SINUS RHYTHM RIGHT BUNDLE BRANCH BLOCK [120+ ms QRS DURATION, UPRIGHT V1, 40+ ms S IN I/aVL/V4/V5/V6] ABNORMAL ECG unchanged from prior ECG Electronically signed by : MEKA SANTANA, 09/26/2023 15:53:40
--- NOTE | 2023-09-26 10:15 | PC.NURSE ---
Dr. Domínguez at [facility] for pt eval
--- NOTE | 2023-09-26 10:17 | XR_ITS ---
FINAL REPORT CLINICAL HISTORY: cp COMPARISON: None FINDINGS: A single portable view of the chest was obtained. A left subclavian pacemaker is present. The patient has undergone a previous midline sternotomy. Mild cardiomegaly is present. The mediastinum is within normal limits. No acute pulmonary abnormality is identified. The bony thorax is intact. IMPRESSION: No active cardiopulmonary disease. Prior midline sternotomy, left subclavian pacemaker, mild cardiomegaly. Reviewed, Interpreted and Dictated by Emmanuel Dee III, MD Transcribed by Jo Mendoza Authenticated and . [facility]
--- NOTE | 2023-09-26 10:20 | CT_ITS ---
FINAL REPORT TECHNIQUE: Then section axial CT images of the chest were obtained with contrast. Three-D reformatted images were also obtained.This study was performed with techniques to keep radiation doses as low as reasonably achievable (ALARA). Individualized dose reduction techniques using automated exposure control or adjustment of mA and/or kV according to the patient's size were employed. CLINICAL HISTORY: chest pain COMPARISON: Prior exam dated 01/12/2020 FINDINGS: There is no evidence of pulmonary embolism. There is no evidence of thoracic aortic aneurysm or dissection. There is a small nodule present in the isthmus of the thyroid gland. The patient has undergone a prior midline sternotomy and coronary artery bypass graft. There has been presumed interval placement of a stent within the graft. Just distal to the medial aspect of the stent, there is a 2.6 cm low-attenuation area, worrisome for thrombosed aneurysm, that appears new since prior exam of 2019. There is mild atelectasis and scar present bilaterally. There are several less than 5 mm in size pulmonary nodules, nonspecific. No localized inflammatory process is seen within the lungs. Limited images of the upper abdomen a small hiatal hernia is present. IMPRESSION: No evidence of pulmonary embolism. Prior midline sternotomy and coronary artery bypass graft, with presumed interval placement of a stent within the graft. Just distal to the medial aspect of the stent there is a 2.6 cm low-attenuation area, worrisome for a thrombosed aneurysm, not seen on the prior exam of 2019. Several less than 5 mm in size pulmonary nodules, nonspecific. Small nodule in the isthmus of the thyroid gland. Reviewed, Interpreted and Dictated by Emmanuel Dee III, MD Transcribed by Jo Mendoza Authenticated and [facility]
--- NOTE | 2023-09-26 10:21 | CT_ITS ---
FINAL REPORT TECHNIQUE: Postcontrast images of the abdomen and pelvis were performed by computed tomography. Extensive 3-D reconstruction images were performed. A CTA was performed. This study was performed with techniques to keep radiation doses as low as reasonably achievable (ALARA). Individualized dose reduction techniques using automated exposure control or adjustment of mA and/or kV according to the patient's size were employed. CLINICAL HISTORY: severe epigastric abd pain COMPARISON: 01/12/2020 FINDINGS: CTA ABDOMEN AND PELVIS: Diffuse vascular calcifications are identified. There is no evidence of aneurysm or dissection. The proximal SMA contains a segmental occlusion with reconstitution approximately 2.7 cm from the origin of the SMA. This finding is new since the prior CT of 2019. The JOSEPH is patent. There is calcified plaque at the origin of the left renal artery, which appears to produce mild stenosis, worse than seen on the prior exam. There is occlusion of the right renal artery, with severe right renal atrophy, also more severe than noted on the prior exam. The distal aorta, and iliac arteries in the pelvis are patent without evidence of significant stenosis. CT ABDOMEN AND PELVIS: The patient is post cholecystectomy. There is mild biliary ductal dilatation, likely secondary to post cholecystectomy change. Right renal atrophy is present, more severe than noted on the prior exam. There is no evidence of focal mass, free fluid, or significant inflammatory change within the abdomen or pelvis. 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 Calcified plaque involving the origin of the left renal artery, worse than identified on the prior exam. There is occlusion of the right renal artery with severe right renal atrophy present. Reviewed, Interpreted and Dictated by Emmanuel Dee III, MD Transcribed by Jo Mendoza Authenticated and [facility]
[2023-09-26 10:35] LABS: Basophils # 0.1 K/mm3 (0-0.2); Basophils % 1.5 % (0.1-2.0); Eosinophils # 0.2 K/mm3 (0.0-0.4); Eosinophils % 2.4 % (0.1-12.0); Hematocrit 47.1 % (37.0-47.0); Hemoglobin 15.2 g/dL (12.2-16.2); Lymphocytes # 2.1 K/mm3 (0.7-4.5); Lymphocytes % 21.1 % (10-50); Mean Corpuscular HGB Conc 32.2 g/dL (31.8-35.4); Mean Corpuscular Hemoglobin 29.5 pg (27.0-31.2); Mean Corpuscular Volume 91.6 fl (81-99); Mean Platelet Volume 6.7 fl (7.4-10.4); Monocytes # 0.6 K/mm3 (0.1-1.0); Monocytes % 5.7 % (1.7-9.3); Neutrophils # 6.7 K/mm3 (1.8-7.8); Neutrophils % 69.3 % (37.0-80.0); Platelet Count 448 K/mm3 (142-424); Red Blood Count 5.14 M/mm3 (4.20-5.40); Red Cell Distribution Width 14.3 % (11.5-17.5); White Blood Count 9.7 K/mm3 (4.8-10.8)
[2023-09-26 10:38] LABS: Chloride 100 mmol/L (98-107); Sodium 139 mmol/L (136-145)
[2023-09-26 10:40] LABS: Potassium 2.7 mmoL/L (3.5-5.1)
[2023-09-26 10:41] LABS: Alanine Aminotransferase 24 U/L (12-78); Albumin Level 4.4 g/dl (3.5-5.0); Albumin/Globulin Ratio 1.2 (1.1-1.8); Alkaline Phosphatase 166 U/L (38-126); Anion Gap 10.7 mEq/L (5-15); Aspartate Amino Transferase 31 U/L (14-36); Bilirubin,Total 0.8 mg/dl (0.2-1.3); Blood Urea Nitrogen 18 mg/dl (7-17); Calcium 10.4 mg/dl (8.4-10.2); Carbon Dioxide 31 mmol/L (22.0-30.0); Creatinine Clearance Estimated 47 mL/min (50-200); Estimated Glomerular Filt Rate 35 ml/min (>60); GFR (African American) 43 ML/MIN (>60); Globulin 3.6 g/dL (1.3-3.2); Glucose 139 mg/dl (74-100); Lipase 121 U/L (23-300)
--- NOTE | 2023-09-26 10:47 | CT_ITS ---
FINAL REPORT CLINICAL HISTORY: headache, severe HTN COMPARISON: 06/06/2019 FINDINGS: Axial images of the head were obtained without contrast. Coronal and sagittal reformatted images were also obtained.This study was performed with techniques to keep radiation doses as low as reasonably achievable (ALARA). Individualized dose reduction techniques using automated exposure control or adjustment of mA and/or kV according to the patient's size were employed. There is no evidence of intracranial hemorrhage or mass. The ventricular size is within normal limits. There is no evidence of shift of the midline structures. No abnormal extra axial fluid collection is identified. No skull abnormality is seen on the bone window images. IMPRESSION: No acute intracranial abnormality. Reviewed, Interpreted and Dictated by Emmanuel Dee III, MD Transcribed by Jo Mendoza Authenticated and [facility]
--- NOTE | 2023-09-26 10:47 | PC.NURSE ---
GFR is 35, Crystal in radiology called to ensure IVF is ordered. Dr. Domínguez notified and this and is ordering LR 500ml bolus
[2023-09-26] MEDS: ONDANSETRON 4MG/2ML VIAL 4 MG IV (10:48)
[2023-09-26] MEDS: NITROGLYCERIN 0.4MG SL TABLET 0.400000000000000022 MG SL (10:48)
[2023-09-26] MEDS: HYDROMORPHONE 2MG/ML SYRINGE 0.5 MG IV (10:49)
[2023-09-26] MEDS: KCl 10mEq/100ml 100 ML 100 MEQ IV ×2 (10:50→12:09)
[2023-09-26] MEDS: RINGERS SOLUTION,LACTATED 500 ML 999 ML IV (10:50)
--- NOTE | 2023-09-26 10:52 | [facility].EDCP ---
Discharge Plan Disposition Patient Disposition: Admitted Clinical Impressions Clinical Impression: Chest pain, Hypertensive emergency, Hypokalemia, Aneurysm of coronary artery, Occlusion of superior mesenteric artery Discharge ED Provider: Perlita Domínguez HPI General Chief Complaint: Chest Pain Stated Complaint: Chest Pain w/ vomiting Time Seen by Provider: 09/26/23 10:14 Mode of Arrival: EMS Source of Information: Patient and EMS Limitations: No Limitations Description of Symptoms (Recalled from ER Triage Doc. by RN): Patient reports chest pain that started approx 830 this morning. States that it comes and goes and feels like a spasm. History of Present Illness HPI narrative: This patient is a 63-year-old female with a history of CAD status post stenting and CABG, PCP abuse, marijuana use, alcohol abuse, cardiac pacemaker, right bundle branch block, hypertension, hypertensive heart disease, hyperlipidemia, GERD, pancreatitis, chronic pain, and depression presenting to the emergency department for evaluation with concern for chest pain radiating down her left arm, epigastric pain, nausea, and vomiting. The patient states that she woke up in her usual state of health this morning but around 8:00 when she took her medications, she started feeling really sick. She states that she is having really severe chest pain going down her left arm as well as epigastric pain, nausea, and vomiting. She arrives by EMS who noted that they gave her aspirin en route as well as nitroglycerin and Phenergan, the patient still states that she feels awful. She arrives significantly hypertensive with systolics greater than 230s. She also complains of headache on review of systems. No other concerns noted at this time. Related Data Home Medications Medication Instructions Recorded Confirmed fluticasone propionate 50 1 spray intranasal DAILY allergies 08/30/22 09/26/23 mcg/actuation nasal spray,suspension hydrochlorothiazide 25 mg tablet 25 mg PO DAILY 06/14/23 09/26/23 isosorbide mononitrate 30 mg 30 mg PO DAILY 06/14/23 09/26/23 tablet,extended release 24 hr lidocaine 5 % topical patch 1 patch topical DAILY 06/14/23 09/26/23 losartan 100 mg tablet 100 mg PO DAILY 06/14/23 09/26/23 omeprazole 40 mg capsule,delayed 40 mg PO DAILY 06/14/23 09/26/23 release Previous Rx's Medication Instructions Recorded aspirin 81 mg tablet,delayed 81 mg PO DAILY Heart disease #90 03/17/20 release tabs albuterol sulfate 90 mcg/actuation See Rx Instructions .Route 11/12/22 aerosol inhaler (ProAir HFA) .COMPLEX Breathing problems #6.7 grams ticagrelor 90 mg tablet (Brilinta) 90 mg PO BID Blood thinner #180 05/11/23 tabs nitroglycerin 0.4 mg sublingual 0.4 mg sublingual Q5M PRN chest 05/23/23 tablet pain #20 tabs evolocumab 140 mg/mL subcutaneous 140 mg SQ Q2W #1 mL 06/14/23 pen injector (Repatha SureClick) famotidine 20 mg tablet See Rx Instructions .Route 07/05/23 .COMPLEX #30 tabs diazepam 5 mg tablet 5 mg PO TID PRN anxiety #90 tabs 07/18/23 budesonide-formoterol HFA 80 See Rx Instructions .Route 08/02/23 mcg-4.5 mcg/actuation aerosol .COMPLEX #10.2 grams inhaler (Symbicort) bupropion HCl 300 mg 24 hr tablet, See Rx Instructions .Route 08/02/23 extended release .COMPLEX #30 tabs nicotine 14 mg/24 hr daily See Rx Instructions .Route 08/02/23 transdermal patch .COMPLEX #28 ea polyethylene glycol 3350 17 17 g PO DAILY #238 grams 08/24/23 gram/dose oral powder ezetimibe 10 mg tablet See Rx Instructions .Route 08/26/23 .COMPLEX #30 tabs gabapentin 300 mg capsule See Rx Instructions .Route 08/31/23 .COMPLEX #90 caps metoprolol succinate 25 mg See Rx Instructions .Route 08/31/23 tablet,extended release 24 hr .COMPLEX #90 tabs atorvastatin 80 mg tablet See Rx Instructions .Route 09/21/23 .COMPLEX #90 tabs ergocalciferol (vitamin D2) 1,250 See Rx Instructions .Route 09/22/23 mcg (50,000 unit) capsule (Vitamin .COMPLEX #5 caps D2) hydrocodone 7.5 mg-acetaminophen 1 tab PO QID PRN pain 30 days #120 09/22/23 325 mg tablet tabs Allergies Allergy/AdvReac Type Severity Reaction Status Date / Time codeine Allergy Intermediate Verified 08/01/23 09:46 acetaminophen [From Tylenol] Allergy Mild Verified 08/01/23 09:46 cephalexin Allergy Unknown Verified 08/01/23 09:46 doxycycline Allergy Unknown Verified 08/01/23 09:46 tramadol Allergy Unknown Verified 08/01/23 09:46 morphine AdvReac Verified 09/26/23 10:41 [facility] Disclaimer: The information contained in this section may have been updated after the patient was seen, as this information can be updated by other users. Medical History Chronic prescription benzodiazepine use Chronic pain Postoperative hematoma involving circulatory system following circulatory system procedure Chronic kidney disease, stage 3b Vitamin D deficiency (~09/15/17) Hematoma of right thigh Illness PCP abuse, episodic Chronic abdominal pain Coronary artery disease involving autologous artery coronary bypass graft Crescendo angina Tobacco abuse counseling Thrombocytosis Bloating Chronic GERD Immobility Falls frequently Diarrhea Fatty stool Carotid stent occlusion Overweight with body mass index (BMI) 25.0-29.9 COVID-19 virus infection Essential hypertension Degenerative joint disease of cervical spine Back pain Chest pain Abnormal drug screen Acute bronchitis Cervical radiculopathy RBBB Enteritis Neck swelling Hypokalemia Atypical chest pain Tobacco user Angina pectoris Anxiety Dizziness GERD (gastroesophageal reflux disease) Hyperlipidemia Insomnia Hypertension Depression Vomiting Neuropathy Hypertensive heart disease Carotid artery stenosis Right bundle branch block Cardiac pacemaker in situ Recurrent angina status post coronary artery bypass graft Coronary arteriosclerosis Surgical History History of permanent cardiac pacemaker placement History of cholecystectomy History of S/P laparoscopic cholecystectomy H/O removal of cyst Hx of CABG Family History Other No significant family history Social History Smoking Status: Unknown if ever smoked alcohol intake: never substance use type: marijuana current occupational status: disabled Travel in the last 8 weeks: Inside the [place] household members: children housing: house lives independently: Yes marital status: single current occupational exposures/hazards: No caffeine: Yes special isr[place] needs: No agree to transfusion: No do you feel safe at home: Yes victim of physical abuse: No victim of emotional abuse: No victim of sexual abuse: No would you like helpful sources: No ROS Obtained: Yes All systems reviewed & no additional complaints except as documented Physical Exam General General appearance: alert and in no apparent distress Comment: Uncomfortable appearing, tearful Head Head exam: atraumatic and normocephalic Eye Eye exam: Present normal appearance, PERRL and EOMI ENT ENT exam: Present normal exam, normal oropharynx, mucous membranes moist and normal external ear exam Neck Neck exam: Present normal inspection, full ROM and trachea midline; Absent tenderness Chest Chest inspection: Present normal inspection and symmetric chest wall rise; Absent tenderness Respiratory Respiratory exam: Present normal lung sounds bilaterally; Absent respiratory distress, wheezes, stridor or accessory muscle use Cardiovascular Cardiovascular exam: Present regular rate, normal rhythm and other (Profoundly hypertensive) Abdominal Exam Abdominal exam: Present soft and tenderness (Epigastric); Absent distention, guarding, rebound or rigidity Extremities Exam Extremities exam: Present normal inspection, full ROM and normal capillary refill; Absent tenderness or edema Back Exam Back exam: Present normal inspection and full ROM; Absent tenderness Neurological Exam Neurological exam: Present alert, oriented X3, CN II-XII intact and normal gait; Absent motor sensory deficit Psychiatric Psychiatric exam: Present normal affect and normal mood Skin Skin exam: Present warm and dry HEART Score HEART Score HEART Score assessment performed?: Yes History (anamnesis): Highly suspicious ECG: Non-specific disturbance Age: 45-65 years Risk factors: Atherosclerosis history Troponin: </= normal limit HEART Score: 6 Critical Care Critical Care Time Critical Care Time: Yes Attestation: On 09/26/23, the high probability of a clinically significant, sudden or life threatening deterioration of the following system(s) required my full and direct attention, intervention and personal management. The time I documented below is in addition to time spent performing reported procedures but includes the following listed in this critical care notation. Total Time Total Critical Care Time: 55 Medical Decision Making Paul Inquiry Pt receiving controlled substance: No Vital Signs Vital Signs: 09/26/23 10:10 09/26/23 11:01 09/26/23 11:36 Temperature 98.6 F Temperature Source Oral Pulse Rate 72 70 Pulse Rate [Radial] 79 Respiratory Rate 16 13 21 Blood Pressure 202/127 H 217/110 H Blood Pressure [Right Arm] 250/132 H Blood Pressure Mean Blood Pressure Mean [Right Arm] 171 Blood Pressure Source [Right Arm] Automatic Cuff Blood Pressure Position [Right Arm] Sitting 02 Sat by Pulse Oximetry 99 98 98 Oxygen Delivery Method Room Air Room Air 09/26/23 11:41 09/26/23 11:54 09/26/23 12:00 Temperature Temperature Source Pulse Rate 70 71 70 Pulse Rate [Radial] Respiratory Rate 17 16 16 Blood Pressure 224/107 H 213/110 H 192/102 H Blood Pressure [Right Arm] Blood Pressure Mean 144 132 Blood Pressure Mean [Right Arm] Blood Pressure Source [Right Arm] Blood Pressure Position [Right Arm] 02 Sat by Pulse Oximetry 98 97 96 Oxygen Delivery Method 09/26/23 12:41 09/26/23 12:58 09/26/23 13:00 Temperature Temperature Source Pulse Rate 71 70 70 Pulse Rate [Radial] Respiratory Rate 16 16 16 Blood Pressure 226/111 H 210/116 H 206/118 H Blood Pressure [Right Arm] Blood Pressure Mean 130 135 133 Blood Pressure Mean [Right Arm] Blood Pressure Source [Right Arm] Blood Pressure Position [Right Arm] 02 Sat by Pulse Oximetry 96 97 98 Oxygen Delivery Method 09/26/23 13:06 09/26/23 13:20 09/26/23 13:25 Temperature Temperature Source Pulse Rate 70 76 74 Pulse Rate [Radial] Respiratory Rate 12 12 16 Blood Pressure 195/95 H 221/113 H 196/119 H Blood Pressure [Right Arm] Blood Pressure Mean 128 127 135 Blood Pressure Mean [Right Arm] Blood Pressure Source [Right Arm] Blood Pressure Position [Right Arm] 02 Sat by Pulse Oximetry 96 96 96 Oxygen Delivery Method 09/26/23 13:31 09/26/23 13:47 09/26/23 14:00 Temperature Temperature Source Pulse Rate 71 71 70 Pulse Rate [Radial] Respiratory Rate 16 16 16 Blood Pressure 210/123 H 164/97 H 195/103 H Blood Pressure [Right Arm] Blood Pressure Mean 141 119 117 Blood Pressure Mean [Right Arm] Blood Pressure Source [Right Arm] Blood Pressure Position [Right Arm] 02 Sat by Pulse Oximetry 95 96 96 Oxygen Delivery Method 09/26/23 14:19 09/26/23 14:31 09/26/23 14:51 Temperature Temperature Source Pulse Rate 71 70 70 Pulse Rate [Radial] Respiratory Rate 16 16 16 Blood Pressure 260/125 H 229/134 H 247/136 H Blood Pressure [Right Arm] Blood Pressure Mean 142 148 161 Blood Pressure Mean [Right Arm] Blood Pressure Source [Right Arm] Blood Pressure Position [Right Arm] 02 Sat by Pulse Oximetry 96 96 96 Oxygen Delivery Method 09/26/23 15:00 Temperature Temperature Source Pulse Rate 70 Pulse Rate [Radial] Respiratory Rate 16 Blood Pressure 215/105 H Blood Pressure [Right Arm] Blood Pressure Mean 141 Blood Pressure Mean [Right Arm] Blood Pressure Source [Right Arm] Blood Pressure Position [Right Arm] 02 Sat by Pulse Oximetry 96 Oxygen Delivery Method Lab Data Labs: Lab Results 09/26/23 10:20: WBC 9.7, RBC 5.14, Hgb 15.2, Hct 47.1 H, MCV 91.6, MCH 29.5, MCHC 32.2, RDW 14.3, Plt Count 448 H, MPV 6.7 L, Neut % (Auto) 69.3, Lymph % (Auto) 21.1, Hyde % (Auto) 5.7, Eos % (Auto) 2.4, Baso % (Auto) 1.5, Neut # (Auto) 6.7, Lymph # (Auto) 2.1, Hyde # (Auto) 0.6, Eos # (Auto) 0.2, Baso # (Auto) 0.1, Sodium 139, Potassium 2.7 L*, Chloride 100, Carbon Dioxide 31 H, Anion Gap 10.7, BUN 18 H, Creatinine 1.50 H, Estimated Creat Clear 47, Estimated GFR 35 L, Est GFR ( Amer) 43 L, Glucose 139 H, Calcium 10.4 H, Magnesium 2.0, Total Bilirubin 0.8, AST 31, ALT 24, Alkaline Phosphatase 166 H, Troponin I < 0.01, Total Protein 8.0 D, Albumin 4.4, Globulin 3.6 H, Albumin/Globulin Ratio 1.2, Lipase 121 09/26/23 13:53: Lactate 1.0, Troponin I < 0.01 09/26/23 10:20 09/26/23 10:20 Response Orders (Tests/Meds): ED MEDICATIONS Generic Name Dose Route Start Last Admin Trade Name Freq PRN Reason Stop Dose Admin Hydrocodone Bitart/Acetaminophen 1 tab 09/26/23 14:58 Apap/Hydrocodone 325mg/7.5mg Tab PO 10/26/23 14:57 QIDP PRN Moderate to Severe Pain (4-10) Aspirin 81 mg 09/27/23 09:00 Aspirin Ec 81mg Tablet PO 10/27/23 08:59 DAILY NAYAN Atorvastatin Calcium 80 mg 09/26/23 21:00 Atorvastatin 40mg Tablet PO 10/26/23 20:59 HS NAYAN Bupropion HCl 300 mg 09/27/23 09:00 Bupropion Hcl Sr 150mg Tab PO 10/27/23 08:59 DAILY NAYAN Diazepam 5 mg 09/26/23 14:58 Diazepam 5mg Tablet PO 10/26/23 14:57 TIDP PRN Anxiety Ezetimibe 10 mg 09/27/23 09:00 Ezetimibe 10mg Tablet PO 10/27/23 08:59 DAILY NAYAN Famotidine 10 mg 09/27/23 09:00 Famotidine 20mg Tablet PO 10/27/23 08:59 DAILY NAYAN Gabapentin 300 mg 09/26/23 21:00 Gabapentin 300mg Capsule PO 10/26/23 20:59 TID NAYAN Hydrochlorothiazide 25 mg 09/27/23 09:00 Hydrochlorothiazide 25mg Tablet PO 10/27/23 08:59 DAILY [facility] Sodium Nitroprusside 50 mg/ 252 mls @ 69.955 mls/hr 09/26/23 15:30 Dextrose IV 10/26/23 15:29 .Q3H37M [facility] Protocol 3 MCG/KG/MIN Irbesartan 300 mg 09/27/23 09:00 Irbesartan 300mg Tablet PO 10/27/23 08:59 DAILY NAYAN Isosorbide Mononitrate 30 mg 09/27/23 09:00 Isosorbide Hyde 30mg Tab.Er.24h PO 10/27/23 08:59 DAILY NAYAN Metoprolol Succinate 25 mg 09/27/23 09:00 Metoprolol Succinate Xl 25mg Tablet PO 10/27/23 08:59 DAILY NAYAN Nicotine 14 mg 09/26/23 14:58 Nicotine 14mg/24hrs Patch TD 10/26/23 14:57 DAILYP PRN Nicotine Cravings Non-Formulary Medication 0 puff 09/26/23 15:00 Budesonide-Formoterol [Symbicort] .ROUTE 10/26/23 14:59 .COMPLEX NAYAN Sodium Chloride 10 ml 09/26/23 10:33 09/26/23 12:43 Sodium Chloride 0.9% 10ml Flush Syringe IV 10/26/23 10:32 10 ml NEEDED PRN Administration Maintain IV Site Sodium Chloride 10 ml 09/26/23 12:42 Sodium Chloride 0.9% 10ml Syr (Rad Only) IV 10/26/23 12:41 NEEDED PRN Maintain IV Site Ticagrelor 90 mg 09/26/23 21:00 Ticagrelor 90mg Tablet PO 10/26/23 20:59 BID NAYAN Discontinued Medications Generic Name Dose Route Start Last Admin Trade Name Freq PRN Reason Stop Dose Admin Droperidol 2.5 mg 09/26/23 11:25 09/26/23 11:35 Droperidol 5mg/2ml Vial IV 09/26/23 11:26 2.5 mg ONCE ONE Administration Hydromorphone HCl 0.5 mg 09/26/23 10:38 09/26/23 10:49 Hydromorphone 2mg/Ml Syringe IV 09/26/23 10:39 0.5 mg ONCE ONE Administration Lactated Ringer's 500 mls @ 999 mls/hr 09/26/23 10:47 09/26/23 10:50 Lactated Ringer's 500ml IV 09/26/23 11:17 999 mls/hr .Q31M ONE Administration Potassium Chloride/Water 100 mls @ 100 mls/hr 09/26/23 10:48 09/26/23 12:09 Potassium Chloride 10meq/100ml Ivpb IV 09/26/23 12:47 100 mls/hr Q1H NAYAN Administration Nicardipine HCl 25 mg/ Sodium 250 mls @ 50 mls/hr 09/26/23 10:49 Chloride IV 10/26/23 10:48 .Q5H NAYAN Protocol Sodium Nitroprusside 50 mg/ 252 mls @ 6.996 mls/hr 09/26/23 11:00 09/26/23 13:27 Dextrose IV 10/26/23 10:59 Infused .Q24H NAYAN Titration Protocol 0.3 MCG/KG/MIN Iopamidol 100 ml 09/26/23 12:42 09/26/23 12:43 Iopamidol-370 (76%);100ml Bottle IV 09/26/23 12:43 100 ml ONCE ONE Administration Morphine Sulfate 4 mg 09/26/23 10:20 09/26/23 10:48 Morphine 4mg/Ml Syringe IV 09/26/23 10:21 Not Given ONCE ONE Nitroglycerin 0.4 mg 09/26/23 10:20 09/26/23 10:48 Nitroglycerin 0.4mg Sl Tablet SL 09/26/23 10:21 0.4 mg ONCE ONE Administration Ondansetron HCl 4 mg 09/26/23 10:20 09/26/23 10:48 Ondansetron 4mg/2ml Vial IV 09/26/23 10:21 4 mg ONCE ONE Administration Potassium Chloride 40 meq 09/26/23 10:48 Potassium Chloride 20meq Tab PO 09/26/23 10:49 ONCE ONE Sodium Chloride 50 ml 09/26/23 12:42 09/26/23 12:43 0.9 % Sodium Chloride 50 Ml Vial IV 09/26/23 12:43 50 ml ONCE ONE Administration Sodium Chloride 250 ml 09/26/23 13:12 09/26/23 13:26 Sodium Chloride 0.9% 250ml Bag IV 09/26/23 13:13 250 ml DIRECTED ONE Administration ORDERS Category Date Time Status CT angio abdomen pelvis Stat Cat Scan 09/26/23 10:[address] angio chest - dissection Stat Cat Scan 09/26/23 10:[address] head/brain wo con Stat Cat Scan 09/26/23 10:47 Completed Cardiology Consult [Consult to Cardiology] [CONS] Cons 09/26/23 14:55 Active Routine XR chest portable Stat Exams 09/26/23 10:17 Completed Complete Blood Count Auto Diff AMLAB Lab 09/27/23 06:00 Ordered Complete Blood Count Auto Diff Stat Lab 09/26/23 10:20 Completed Comprehensive Metabolic Panel AMLAB Lab 09/27/23 06:00 Ordered Comprehensive Metabolic Panel Stat Lab 09/26/23 10:20 Completed Lactic Acid Stat Lab 09/26/23 13:53 Completed Lipase Stat Lab 09/26/23 10:20 Completed Magnesium AMLAB Lab 09/27/23 06:00 Ordered Magnesium Stat Lab 09/26/23 10:20 Completed Troponin I Q3H Lab 09/26/23 13:53 Completed Troponin I Q3H Lab 09/26/23 16:30 Ordered Troponin I Stat Lab 09/26/23 10:20 Completed ECG Data Tracing #1: Attestation: I reviewed this ECG and interpreted as documented below: ECG Narrative: Normal sinus rhythm with a ventricular rate of 76 bpm. Right bundle branch block noted. No acute STEMI. ECG initial impression date: 09/26/23 ECG initial impression time: 10:13 MDM Narrative Medical Decision Narrative: In summary, this patient is a 63-year-old female presenting to the Emergency Department for evaluation of chest pain radiating down her left arm, epigastric pain, nausea, vomiting, and headache. She arrives profoundly hypertensive despite receiving nitroglycerin, Phenergan, and aspirin en route. Differential diagnoses considered include but are not limited to hypertensive urgency, hypertensive emergency, ACS, pancreatitis, aortic dissection, intestinal ischemia. Ruling out the most morbid conditions drove assessment. It should be noted patient's history includes extensive cardiovascular disease as well as hypertension which is not at goal therapy. This complicates all aspects of care by increasing patient's risk for morbidity. I reviewed patient's past medical records and noted previous evaluations in the past for cardiac issues as well as substance use. On exam, the patient is uncomfortable appearing and tearful with significant hypertension with systolics greater than 230s. She is actively complaining of chest pain and is actively having nausea and vomiting. She already received aspirin, nitroglycerin, and Phenergan en route. Patient was given another sublingual nitroglycerin here as well as IV Dilaudid, Zofran. This did not improve the patient's symptoms. Workup included CBC, CMP, lipase, troponin, lactic acid, CT head without contrast, CT angiograms of the chest, abdomen, and pelvis. EKG was obtained which does not demonstrate any significant changes from prior EKG. Patient had minimal improvement in her blood pressure after interventions above, but she was started on a nitro drip with goal blood pressure of 160 systolic. she required frequent reassessments and titrations of this, as she remained hypertensive even after initiation. She continued to have nausea and vomiting after interventions above, so she was given droperidol. Patient was found to have hypokalemia, which IV and oral replacement were ordered as well as a 500 cc bolus of IV fluids to help prevent contrast-induced nephropathy in the setting of chronic kidney disease. Her kidney function is around her baseline. I independently interpreted CT scans prior to the radiologist read and noted no acute aortic dissection or intracranial hemorrhage. Please see their read for final interpretation. They do note that she has an aneurysm of the coronary artery bypass graft adjacent to her stent as well as SMA occlusion. Labs were obtained that demonstrated no significant leukocytosis, negative troponin x 2, and normal lactic acid. Ultimately, patient continued to require nitro drip for blood pressure treatment. I had and after discussion with Dr. Bunch with vascular surgery [facility] who advised that her CT findings are likely chronic. No transfer for emergent intervention required per them. Given this, I called and had an direct discussion with the hospitalist for admission for hypertensive emergency. He agreed and admitted the patient in stable condition.
[2023-09-26 10:54] LABS: Troponin I < 0.01 ng/ml (0.00-0.034)
--- NOTE | 2023-09-26 11:21 | PC.NURSE ---
Pt gone to RAD via stretcher
[2023-09-26] MEDS: NITROPRUSSIDE SODIUM 50 MG in DEXTROSE 5 % IN WATER 250 ML 7 MG IV (11:34)
[2023-09-26] MEDS: droPERidol 5MG/2ML VIAL 2.5 MG IV (11:35)
--- NOTE | 2023-09-26 11:44 | PC.NURSE ---
Pt unable to lay flat for CT scan. Pt returned to room
[2023-09-26] MEDS: NITROPRUSSIDE SODIUM 50 MG in DEXTROSE 5 % IN WATER 250 ML 11.6600000000000001 MG IV (11:54)
--- NOTE | 2023-09-26 12:18 | PC.NURSE ---
PT GOING BACK TO CT TO TRY TO GET SCAN
--- NOTE | 2023-09-26 12:19 | PC.NURSE ---
POTASSIUM STOPPED SO THEY CAN USES IV FOR CONTRAST
[2023-09-26] MEDS: NITROPRUSSIDE SODIUM 50 MG in DEXTROSE 5 % IN WATER 250 ML 23.3200000000000003 MG IV (12:42)
[2023-09-26] MEDS: SODIUM CHLORIDE 0.9% 10ML FLUSH SYRINGE 10 ML IV (12:43)
[2023-09-26] MEDS: 0.9 % SODIUM CHLORIDE 50 ML VIAL IV (12:43)
[2023-09-26] MEDS: IOPAMIDOL-370 (76%);100ML BOTTLE 100 ML IV (12:43)
--- NOTE | 2023-09-26 12:45 | PC.NURSE ---
PT BACK FROM CT POTASSIUM RESTARTED AND NIPRIDE TITRATED UP
[2023-09-26] MEDS: SODIUM CHLORIDE 0.9% 250ML BAG 250 ML IV (13:26)
--- NOTE | 2023-09-26 13:50 | PC.NURSE ---
LAB at to draw repeat trop
--- NOTE | 2023-09-26 13:54 | PC.NURSE ---
Asked radiology to power share to [facility]
[2023-09-26 14:29] LABS: Troponin I < 0.01 ng/ml (0.00-0.034)
[2023-09-26] MEDS: NITROPRUSSIDE SODIUM 50 MG in DEXTROSE 5 % IN WATER 250 ML 69.9599999999999937 MG IV (14:52)
--- NOTE | 2023-09-26 14:58 | PC.NURSE ---
Dr. Domínguez s/w Dr. Perez for admission. agrees. Called house for Step-down bed d/t Nitroprusside gtt
--- NOTE | 2023-09-26 15:32 | PC.NURSE ---
Called report to Vesta Faria RN
--- NOTE | 2023-09-26 15:41 | PC.NURSE ---
DUE TO DOCUMENTATION PROBLEMS WITH TITRATION OF NIPRIDE DRIP , PHARMACY AWARE AND WORKING ON IT STARTED: 1134 @ 0.3MCG/KG/MIN B/P 202/127 TITRATED : 1154 TO 0.5 MCG/KG/MIN B/P 217/110 TITRATED : 1219 TO 0.8 MCG/KG/MIN B/P 192/102 TITRATED : 1242 TO 1 MCG/KG/MIN B/P 226/111 TITRATED: 1327 TO 2 MCG/KG/MIN B/P 221/113 TITRATION TO 3 IS DOCUMENTED ON MAR
--- NOTE | 2023-09-26 15:46 | PC.NURSE ---
arrived by stretcher from ED
--- NOTE | 2023-09-26 16:00 | PC.NURSE ---
Jaret Vazquez at bedside, stated that patient needed brilinta and aspirin. Brilinta already ordered for tonight, aspirin not ordered until 0900 tomorrow, Jaret stated to go ahead and give an 81 mg aspirin now. ordered faxed to pharmacy
--- NOTE | 2023-09-26 16:00 | EXP.CARD.CON ---
History of Present Illness History of Present Illness Consult date: 09/27/23 Requesting physician: Angelito Perez Consult reason: chest pain Chief complaint: chest pain History of present illness: 63-year-old white female established patient of our office with history of severe ASCVD including CAD status post CABG, status post carotid endarterectomy, renal artery stenosis, mesenteric ischemia, bilateral lower extremity claudication. She is also status post ICD placed following her CABG in 2018. She has ongoing tobacco use and questionable medication compliance. Patient underwent heart cath in May for ongoing chest pain but was not amenable to intervention. She came to the ER yesterday with complaints of chest pain and blood pressure was [address] in the emergency room indicated aneurysm distal to the coronary stent and a bypass graft. She also had mesenteric artery occlusion and right renal artery occlusion with severe atrophy of the right kidney. She was admitted overnight for BP management and possible vascular intervention. Vascular surgery at was contacted from the emergency room and they stated patient was not appropriate for transfer. After administration of her typical home morning blood pressure meds today her blood pressure normalized. She is currently chest pain-free but does report frequent GI upset with nausea postprandial at home. [facility] Disclaimer: The information contained in this section may have been updated after the patient was seen, as this information can be updated by other users. Medical History Chronic prescription benzodiazepine use Chronic pain Postoperative hematoma involving circulatory system following circulatory system procedure Chronic kidney disease, stage 3b Vitamin D deficiency (~09/15/17) Hematoma of right thigh Illness PCP abuse, episodic Chronic abdominal pain Coronary artery disease involving autologous artery coronary bypass graft Crescendo angina Tobacco abuse counseling Thrombocytosis Bloating Chronic GERD Immobility Falls frequently Diarrhea Fatty stool Carotid stent occlusion Overweight with body mass index (BMI) 25.0-29.9 COVID-19 virus infection Essential hypertension Degenerative joint disease of cervical spine Back pain Chest pain Abnormal drug screen Acute bronchitis Cervical radiculopathy RBBB Enteritis Neck swelling Hypokalemia Atypical chest pain Tobacco user Angina pectoris Anxiety Dizziness GERD (gastroesophageal reflux disease) Hyperlipidemia Insomnia Hypertension Depression Vomiting Neuropathy Hypertensive heart disease Carotid artery stenosis Right bundle branch block Cardiac pacemaker in situ Recurrent angina status post coronary artery bypass graft Coronary arteriosclerosis Surgical History History of permanent cardiac pacemaker placement History of cholecystectomy History of S/P laparoscopic cholecystectomy H/O removal of cyst Hx of CABG Family History Other No significant family history Social History Smoking Status: Unknown if ever smoked alcohol intake: never substance use type: marijuana current occupational status: disabled Travel in the last 8 weeks: [place] the [place] household members: children housing: house lives independently: Yes marital status: single current occupational exposures/hazards: No caffeine: Yes special isrrael needs: No agree to transfusion: No do you feel safe at home: Yes victim of physical abuse: No victim of emotional abuse: No victim of sexual abuse: No would you like helpful sources: No Review of Systems Constitutional Constitutional: Denies fatigue and Denies weakness Eyes Eyes: Denies loss of vision ENT Ears, Nose, Mouth, and Throat: Denies hearing loss and Denies vertigo *Cardiovascular Cardiovascular: Denies chest pain, Denies dyspnea and Denies syncope *Respiratory Respiratory: Denies cough and Denies dyspnea *Gastrointestinal Gastrointestinal: Denies change in stool character, Denies nausea and Denies vomiting *Musculoskeletal Musculoskeletal: Denies muscle weakness Integumentary/Breasts Skin/Breast: Denies changing lesions *Neurologic Neurologic: Denies loss of vision, Denies syncope, Denies vertigo and Denies weakness Endocrine Endocrine: Denies fatigue Exam Data for Last 24 hours Vital signs and Labs for Last 24 Hours: Temp Pulse Resp BP Pulse Ox O2 Del Method 98.5 F 70 18 117/76 95 Room Air 09/26/23 20:00 09/27/23 12:00 09/27/23 12:00 09/27/23 12:00 09/27/23 12:00 09/27/23 12:00 Laboratory Results - last 24 hr 09/26/23 13:53: Lactate 1.0, Troponin I < 0.01 09/26/23 17:36: Troponin I 0.02 09/26/23 20:08: Sodium 133 L, Potassium 2.8 L*, Chloride 97 L, Carbon Dioxide 29, Anion Gap 9.8, BUN 17, Creatinine 1.20 H, Estimated Creat Clear 59, Estimated GFR 46 L, Est GFR ( Amer) 55 L D, Glucose 135 H, Calcium 9.6 09/26/23 21:56: Sodium 134 L, Potassium 2.9 L*, Chloride 97 L, Carbon Dioxide 31 H, Anion Gap 8.9, BUN 16, Creatinine 1.30 H, Estimated Creat Clear 55, Estimated GFR 42 L, Est GFR ( Amer) 50 L, Glucose 123 H, Calcium 9.7 09/27/23 05:31: WBC 12.0 H, RBC 4.75, Hgb 14.0, Hct 42.5, MCV 89.6, MCH 29.5, MCHC 32.9, RDW 14.3, Plt Count 498 H, MPV 7.3 L, Neut % (Auto) 72.7, Lymph % (Auto) 19.6, [place] % (Auto) 6.4, Eos % (Auto) 0.6, Baso % (Auto) 0.7, Neut # (Auto) 8.8 H, Lymph # (Auto) 2.4, [place] # (Auto) 0.8, Eos # (Auto) 0.1, Baso # (Auto) 0.1, Sodium 136, Potassium 2.7 L*, Chloride 97 L, Carbon Dioxide 32 H, Anion Gap 9.7, BUN 19 H, Creatinine 1.30 H, Estimated Creat Clear 55, Estimated GFR 42 L, Est GFR ( Amer) 50 L, Glucose 101 H, Calcium 9.8, Magnesium 2.1, Total Bilirubin 0.7, AST 35, ALT 22, Alkaline Phosphatase 142 H, Total Protein 6.8, Albumin 3.9 D, Globulin 2.9, Albumin/Globulin Ratio 1.3 I & O for Last 24 hours: Intake & Output 09/24/23 09/25/23 09/26/23 09/27/23 23:59 23:59 23:59 23:59 Intake Total 395.585 / 395.585 102.266 / 102.266 Output Total 750 / 750 Balance 395.585 / 395.585 -647.734 / -647.734 Weight 170 lb 14.4 oz 170 lb 4.8 oz Meds Home Medications and Allergies Home Medications Medication Instructions Recorded Confirmed Type aspirin 81 mg tablet,delayed 81 mg PO DAILY Heart disease #90 03/17/20 09/26/23 Rx release tabs fluticasone propionate 50 1 spray intranasal DAILY allergies 04/17/23 05/13/24 History mcg/actuation nasal spray,suspension nitroglycerin 0.4 mg sublingual 0.4 mg sublingual Q5M PRN chest 05/23/23 09/26/23 Rx tablet pain #20 tabs evolocumab 140 mg/mL subcutaneous 140 mg SQ Q2W #1 mL 06/14/23 09/27/23 Rx pen injector (Maral Campos) hydrochlorothiazide 25 mg tablet 25 mg PO DAILY 06/14/23 09/26/23 History lidocaine 5 % topical patch 1 patch topical DAILY 06/14/23 09/26/23 History atorvastatin 80 mg tablet 80 mg PO HS 09/27/23 09/27/23 History budesonide-formoterol HFA 80 1 puff inhalation BID 09/27/23 09/27/23 History mcg-4.5 mcg/actuation aerosol inhaler (Symbicort) bupropion HCl 300 mg 24 hr tablet, 300 mg PO DAILY 09/27/23 09/27/23 History extended release diazepam 10 mg tablet 10 mg PO BID Anxiety 09/27/23 09/27/23 History ergocalciferol (vitamin D2) 1,250 50,000 unit PO WEEKLY 09/27/23 09/27/23 History mcg (50,000 unit) capsule (Vitamin D2) ezetimibe 10 mg tablet 10 mg PO DAILY 09/27/23 09/27/23 History famotidine 20 mg tablet 20 mg PO DAILY GERD 09/27/23 09/27/23 History gabapentin 300 mg capsule 300 mg PO TID 09/27/23 09/27/23 History hydrocodone 7.5 mg-acetaminophen 1 tab PO QIDP PRN Pain, Moderate 09/27/23 09/27/23 History 325 mg tablet isosorbide mononitrate 30 mg 30 mg PO DAILY 09/27/23 09/27/23 History tablet,extended release 24 hr losartan 25 mg tablet 12.5 mg PO DAILY 09/27/23 09/27/23 History metoprolol succinate 25 mg 25 mg PO DAILY 09/27/23 09/27/23 History tablet,extended release 24 hr nicotine 14 mg/24 hr daily 1 patch transdermal DAILY 09/27/23 09/27/23 History transdermal patch nitroglycerin 0.4 mg sublingual 0.4 mg sublingual Q5MINP PRN Chest 09/27/23 09/27/23 History tablet Pain omeprazole 40 mg capsule,delayed 40 mg PO DAILY 09/27/23 09/27/23 History release polyethylene glycol 3350 17 17 g PO DAILY 09/27/23 09/27/23 History gram/dose oral powder (ClearLax) spironolactone 50 mg tablet 50 mg PO DAILY 09/27/23 09/27/23 History ticagrelor 90 mg tablet (Brilinta) 90 mg PO BID 09/27/23 09/27/23 History New Prescriptions to Start Prescriptions: Allergies Allergy/AdvReac Type Severity Reaction Status Date / Time codeine Allergy Intermediate Verified 08/01/23 09:46 acetaminophen [From Tylenol] Allergy Mild Verified 08/01/23 09:46 cephalexin Allergy Unknown Verified 08/01/23 09:46 doxycycline Allergy Unknown Verified 08/01/23 09:46 tramadol Allergy Unknown Verified 08/01/23 09:46 morphine AdvReac Verified 09/26/23 10:41 Assessment and Plan *Assessment and plan (1) Hypertensive emergency: Status: Acute Category: Medical Code(s): I16.1 - Hypertensive emergency (2) Occlusion of superior mesenteric artery: Status: Acute Category: Medical Code(s): K55.069 - Acute infarction of intestine, part and extent unspecified (3) Hypokalemia: Status: Acute Category: Medical Code(s): E87.6 - Hypokalemia (4) Chronic pain: Status: Acute Qualifiers: Chronic pain type: other chronic pain Qualified Code(s): G89.29 - Other chronic pain Category: Medical Code(s): G89.29 - Other chronic pain (5) Major depressive disorder: Status: Acute Qualifiers: Major depression recurrence: recurrent Active/Remission status: remission status unspecified Qualified Code(s): F33.9 - Major depressive disorder, recurrent, unspecified Category: Medical Code(s): F32.9 - Major depressive disorder, single episode, unspecified (6) Tobacco user: Status: Acute Category: Social Hx Code(s): Z72.0 - Tobacco use (7) Cardiac pacemaker in situ: Status: Acute Category: Medical Code(s): Z95.0 - Presence of cardiac pacemaker (8) Carotid artery stenosis: Problem Comment: Being followed by cardiology. Status: Acute Qualifiers: Laterality: bilateral Qualified Code(s): I65.23 - Occlusion and stenosis of bilateral carotid arteries Category: Medical Code(s): I65.29 - Occlusion and stenosis of unspecified carotid artery (9) Chronic kidney disease, stage 3b: Problem Comment: She has an appointment with a contract graphic designer in August. 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 - resume home meds and agree with nitroprusside drip with goal of BP <160 MV-CAD sp CABG 2019, DENILSON 2021 - relook cath 05/2023 showed high risk non amenable arteries - she has CP with her elevated BP but EKG shows SR, RBBB but no acute ischemia - resume home meds Renal Artery Stenosis - occluded right renal artery with severe renal atrophy - chronic per chart - cont DAPT, Statin, stop smoking 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
--- NOTE | 2023-09-26 16:21 | PC.NURSE ---
patient asked about allergies, stated she doesn't know what she is allergic to
--- NOTE | 2023-09-26 16:30 | EXP.HP ---
History of Present Illness *Admission Date: 09/26/23 *Reason for visit:: hypertension *History of present illness: Ms. Moffett is a 63-year-old female with complex past medical cardiac history including CABG, stents, CAD, pacemaker, continues to smoke. Has hypertension and hyperlipidemia. Presented to the ER for evaluation with concern of chest pain radiating down her arm. Denies any syncope or headache. Does complain of some mild nausea. Patient says she woke up in her normal state of health around 8 AM and took her meds. This when she started to feel sick. On arrival to the ER, patient had received aspirin, nitro, Phenergan with EMS. Has been a little bit more confused since arriving to the ER in the floor after admission. Workup concerning for hypertensive emergency with systolics in the 230s. Received droperidol for nausea. Noted to have severely depleted potassium at 2.7. Patient started on nitroprusside drip and medicine was consulted for admission. On arrival to the floor, patient's blood pressure is doing better with systolics in the 160s to 170s. Cardiology is consulted to assist with care. She is sleeping due to sedating medications including Phenergan. Unable to get much history or review of systems from patient due to her sleeping.Review of workup shows normal hemoglobin and white cell count, kidney function with creatinine 1.5 which appears to be her baseline, CTA of chest reviewed showing no PEs. Head CT unremarkable. [facility] Disclaimer: The information contained in this section may have been updated after the patient was seen, as this information can be updated by other users. Medical History Chronic prescription benzodiazepine use Chronic pain Postoperative hematoma involving circulatory system following circulatory system procedure Chronic kidney disease, stage 3b Vitamin D deficiency (~09/15/17) Hematoma of right thigh Illness PCP abuse, episodic Chronic abdominal pain Coronary artery disease involving autologous artery coronary bypass graft Crescendo angina Tobacco abuse counseling Thrombocytosis Bloating Chronic GERD Immobility Falls frequently Diarrhea Fatty stool Carotid stent occlusion Overweight with body mass index (BMI) 25.0-29.9 COVID-19 virus infection Essential hypertension Degenerative joint disease of cervical spine Back pain Chest pain Abnormal drug screen Acute bronchitis Cervical radiculopathy RBBB Enteritis Neck swelling Hypokalemia Atypical chest pain Tobacco user Angina pectoris Anxiety Dizziness GERD (gastroesophageal reflux disease) Hyperlipidemia Insomnia Hypertension Depression Vomiting Neuropathy Hypertensive heart disease Carotid artery stenosis Right bundle branch block Cardiac pacemaker in situ Recurrent angina status post coronary artery bypass graft Coronary arteriosclerosis Surgical History History of permanent cardiac pacemaker placement History of cholecystectomy History of S/P laparoscopic cholecystectomy H/O removal of cyst Hx of CABG Family History Other No significant family history Social History (Updated 09/26/23 @ 16:31 by Vesta Valerio RN) Smoking Status: Unknown if ever smoked alcohol intake: never substance use type: marijuana current occupational status: disabled Travel in the last 8 weeks: Inside the [place] household members: children housing: house lives independently: Yes marital status: single current occupational exposures/hazards: No caffeine: Yes special isrrael needs: No agree to transfusion: No do you feel safe at home: Yes victim of physical abuse: No victim of emotional abuse: No victim of sexual abuse: No would you like helpful sources: No Review of Systems Review of Systems Review of systems:: unable to obtain Meds Home Medications and Allergies Home Medications Medication Instructions Recorded Confirmed Type aspirin 81 mg tablet,delayed 81 mg PO DAILY Heart disease #90 03/17/20 09/26/23 Rx release tabs fluticasone propionate 50 1 spray intranasal DAILY allergies 08/30/22 09/26/23 History mcg/actuation nasal spray,suspension albuterol sulfate 90 mcg/actuation See Rx Instructions .Route 11/12/22 09/26/23 Rx aerosol inhaler (ProAir HFA) .COMPLEX Breathing problems #6.7 grams ticagrelor 90 mg tablet (Brilinta) 90 mg PO BID Blood thinner #180 05/11/23 09/26/23 Rx tabs nitroglycerin 0.4 mg sublingual 0.4 mg sublingual Q5M PRN chest 05/23/23 09/26/23 Rx tablet pain #20 tabs evolocumab 140 mg/mL subcutaneous 140 mg SQ Q2W #1 mL 06/14/23 08/01/23 Rx pen injector (Maral Campos) hydrochlorothiazide 25 mg tablet 25 mg PO DAILY 06/14/23 09/26/23 History isosorbide mononitrate 30 mg 30 mg PO DAILY 06/14/23 09/26/23 History tablet,extended release 24 hr lidocaine 5 % topical patch 1 patch topical DAILY 06/14/23 09/26/23 History losartan 100 mg tablet 100 mg PO DAILY 06/14/23 09/26/23 History omeprazole 40 mg capsule,delayed 40 mg PO DAILY 06/14/23 09/26/23 History release famotidine 20 mg tablet See Rx Instructions .Route 07/05/23 09/26/23 Rx .COMPLEX #30 tabs diazepam 5 mg tablet 5 mg PO TID PRN anxiety #90 tabs 07/18/23 09/26/23 Rx budesonide-formoterol HFA 80 See Rx Instructions .Route 08/02/23 09/26/23 Rx mcg-4.5 mcg/actuation aerosol .COMPLEX #10.2 grams inhaler (Symbicort) bupropion HCl 300 mg 24 hr tablet, See Rx Instructions .Route 08/02/23 09/26/23 Rx extended release .COMPLEX #30 tabs nicotine 14 mg/24 hr daily See Rx Instructions .Route 08/02/23 09/26/23 Rx transdermal patch .COMPLEX #28 ea polyethylene glycol 3350 17 17 g PO DAILY #238 grams 08/24/23 09/26/23 Rx gram/dose oral powder ezetimibe 10 mg tablet See Rx Instructions .Route 08/26/23 09/26/23 Rx .COMPLEX #30 tabs gabapentin 300 mg capsule See Rx Instructions .Route 08/31/23 09/26/23 Rx .COMPLEX #90 caps metoprolol succinate 25 mg See Rx Instructions .Route 08/31/23 09/26/23 Rx tablet,extended release 24 hr .COMPLEX #90 tabs atorvastatin 80 mg tablet See Rx Instructions .Route 09/21/23 09/26/23 Rx .COMPLEX #90 tabs ergocalciferol (vitamin D2) 1,250 See Rx Instructions .Route 09/22/23 09/26/23 Rx mcg (50,000 unit) capsule (Vitamin .COMPLEX #5 caps D2) hydrocodone 7.5 mg-acetaminophen 1 tab PO QID PRN pain 30 days #120 09/22/23 09/26/23 Rx 325 mg tablet tabs New Prescriptions to Start Prescriptions: Allergies Allergy/AdvReac Type Severity Reaction Status Date / Time codeine Allergy Intermediate Verified 08/01/23 09:46 acetaminophen [From Tylenol] Allergy Mild Verified 08/01/23 09:46 cephalexin Allergy Unknown Verified 08/01/23 09:46 doxycycline Allergy Unknown Verified 08/01/23 09:46 tramadol Allergy Unknown Verified 08/01/23 09:46 morphine AdvReac Verified 09/26/23 10:41 Exam Data for Last 24 hours Vital signs and Labs for Last 24 Hours: Temp Pulse Resp BP Pulse Ox O2 Del Method 98.7 F 79 18 155/88 H 95 Room Air 09/26/23 15:45 09/26/23 15:45 09/26/23 15:45 09/26/23 15:45 09/26/23 15:31 09/26/23 15:45 Laboratory Results - last 24 hr 09/26/23 10:20: WBC 9.7, RBC 5.14, Hgb 15.2, Hct 47.1 H, MCV 91.6, MCH 29.5, MCHC 32.2, RDW 14.3, Plt Count 448 H, MPV 6.7 L, Neut % (Auto) 69.3, Lymph % (Auto) 21.1, [place] % (Auto) 5.7, Eos % (Auto) 2.4, Baso % (Auto) 1.5, Neut # (Auto) 6.7, Lymph # (Auto) 2.1, [place] # (Auto) 0.6, Eos # (Auto) 0.2, Baso # (Auto) 0.1, Sodium 139, Potassium 2.7 L*, Chloride 100, Carbon Dioxide 31 H, Anion Gap 10.7, BUN 18 H, Creatinine 1.50 H, Estimated Creat Clear 47, Estimated GFR 35 L, Est GFR ( Amer) 43 L, Glucose 139 H, Calcium 10.4 H, Magnesium 2.0, Total Bilirubin 0.8, AST 31, ALT 24, Alkaline Phosphatase 166 H, Troponin I < 0.01, Total Protein 8.0 D, Albumin 4.4, Globulin 3.6 H, Albumin/Globulin Ratio 1.2, Lipase 121 09/26/23 13:53: Lactate 1.0, Troponin I < 0.01 I & O for Last 24 hours: Intake & Output 09/23/23 09/24/23 09/25/23 09/26/23 23:59 23:59 23:59 23:59 Intake Total 29.073 / 29.073 Balance 29.073 / 29.073 Weight 77.111 kg Constitutional Constitutional: mild distress, average body habitus, chronically ill appearing and cooperative *Routine HEENT Exam Head: Present normocephalic and atraumatic Eye: Present EOMI, PERRL and normal accommodation ENT: Present mucous membranes moist *Routine Neck Exam Neck: Present supple, full ROM and trachea midline *Routine Respiratory Exam Respiratory: Present normal respiratory effort; Absent respiratory distress, rhonchi, wheezes or crackles *Routine Cardiovascular Exam Cardiovascular: Present RRR, Normal S1 and Normal S2 *Routine Abdominal Exam Abdominal: Present soft and normoactive bowel sounds; Absent organomegaly *Routine Rectal Exam Rectal:: deferred *Routine Genitalia Exam Genitalia:: deferred *Routine Extremities Exam Extremities: Present full ROM and pulses intact; Absent cyanosis, clubbing or edema Comments: enduration to right groin extended to thigh *Routine Skin Exam Skin: Present dry and warm *Routine Neurological Exam Neurological: Present alert, normal reflexes, altered mental status, moving all extremities and normal speech Routine Psychiatric Exam Psychiatric: Present normal thought process, cooperative and anxious Assessment and Plan *Assessment and plan (1) Hypertensive emergency: Status: Acute Category: Medical Code(s): I16.1 - Hypertensive emergency (2) Occlusion of superior mesenteric artery: Status: Acute Category: Medical Code(s): K55.069 - Acute infarction of intestine, part and extent unspecified (3) Hypokalemia: Status: Acute Category: Medical Code(s): E87.6 - Hypokalemia (4) Chronic pain: Status: Acute Qualifiers: Chronic pain type: other chronic pain Qualified Code(s): G89.29 - Other chronic pain Category: Medical Code(s): G89.29 - Other chronic pain (5) Major depressive disorder: Status: Acute Qualifiers: Active/Remission status: remission status unspecified Major depression recurrence: recurrent Qualified Code(s): F33.9 - Major depressive disorder, recurrent, unspecified Category: Medical Code(s): F32.9 - Major depressive disorder, single episode, unspecified (6) Tobacco user: Status: Acute Category: Social Hx Code(s): Z72.0 - Tobacco use (7) Cardiac pacemaker in situ: Status: Acute Category: Medical Code(s): Z95.0 - Presence of cardiac pacemaker (8) Carotid artery stenosis: Problem Comment: Being followed by cardiology. Status: Acute Qualifiers: Laterality: bilateral Qualified Code(s): I65.23 - Occlusion and stenosis of bilateral carotid arteries Category: Medical Code(s): I65.29 - Occlusion and stenosis of unspecified carotid artery (9) Chronic kidney disease, stage 3b: Problem Comment: She has an appointment with a public policy professor in August. Status: Acute Category: Medical Code(s): N18.32 - Chronic kidney disease, stage 3b Plan Ms. Moffett is a 63-year-old female with significant past medical history. Presented to the ER with severe hypertension and chest pain. Discussed case with ER, request admission for hypertensive emergency and further management of hypokalemia. Medicine agreed to admit. Cardiology consulted. Patient initiated on nitroprusside drip. Admitted to stepdown level of care. Necessitating inpatient admission. Problems addressed as follows: Hypertensive emergency History of CABG CAD status post stenting -Continue nitroprusside drip, goal blood pressure systolic 160 overnight. Will resume home regimen in the morning and attempt further decrease in blood pressure over the next 24 hours. -Continue home regimen including Brilinta 90 mg daily, metoprolol 25 mg daily, losartan 100mg daily (formulary conversion to irbesartan 300 mg daily), isosorbide mononitrate 30 mg daily, HCTZ 25mg daily -Lipitor 80 mg daily, aspirin 81 mg daily -Cardiology consulted, appreciate their recommendations and care Hypokalemia CKD 3 - low on admission at 2.7, magnesiusm 2.0. replaced 20meq in ER, replace additional 60meq IV after admission, repeat BMP at 10pm, repeat CBC, CMP, Mg in AM. - renal function stable, CKD 3 with cr 1.2 Depression/anxiety - regimen of Wellbutrin 300 mg daily, Valium 5 mg 3 times a day as needed; resume home regimen Chronic pain and neuropathy continue but on 7.5 g QID as needed, gabapentin 300 mg 3 times a day COPD: DuoNebs every 6 hours as needed. No wheeze on exam Tobacco use disorder: Nicotine patch 21 mg daily as needed Full code On aspirin and Brilinta Cardiac diet
--- NOTE | 2023-09-26 16:45 | PC.NURSE ---
Dr. Perez made aware that patient is unable to tolerate PO potassium
[2023-09-26] MEDS: ASPIRIN EC 81MG TABLET 81 MG PO (16:54)
--- OUTSIDE RECORDS SUMMARY | 2023-09-26 16:54 | XMS_ITS | Clinical Summary ---
Author Name Unknown Address [address] [facility] [address] [place] [address] Phone Organization [facility] Address [address] [facility] [address] [place] [address] Phone Care Team Providers Care Bond Runner Name Role Phone Unavailable Unavailable Conditions or Problems No information available. Medications No information available. Medications Administered No information available. Allergies, Adverse Reactions, Alerts No information available. Results No information available. Plan of Care No information available. Procedures No information available. Vital Signs No information available. Immunizations No information available. Advance Directives No information available.
[2023-09-26] MEDS: FLUTICASONE/SALMETEROL 100/50MCG DISKUS 1 PUFF IH (18:15)
[2023-09-26 18:24] LABS: Troponin I 0.02 ng/ml (0.00-0.034)
[2023-09-26] MEDS: NITROPRUSSIDE SODIUM 50 MG in DEXTROSE 5 % IN WATER 250 ML 46.6400000000000006 MG IV (18:53)
--- NOTE | 2023-09-26 18:58 | PC.NURSE ---
Ginger gtt increased to 2 at 1830, BP 181/98
[2023-09-26] MEDS: GABAPENTIN 300MG CAPSULE 300 MG PO (20:05)
[2023-09-26] MEDS: ATORVASTATIN 40MG TABLET 80 MG PO (20:05)
[2023-09-26] MEDS: TICAGRELOR 90MG TABLET 90 MG PO (20:05)
[2023-09-26] MEDS: APAP/HYDROCODONE 325MG/7.5MG TAB 1 TAB PO (20:18)
[2023-09-26 20:24] LABS: Anion Gap 9.8 mEq/L (5-15); Blood Urea Nitrogen 17 mg/dl (7-17); Calcium 9.6 mg/dl (8.4-10.2); Carbon Dioxide 29 mmol/L (22.0-30.0); Chloride 97 mmol/L (98-107); Creatinine Clearance Estimated 59 mL/min (50-200); Estimated Glomerular Filt Rate 46 ml/min (>60); GFR (African American) 55 ML/MIN (>60); Glucose 135 mg/dl (74-100); Sodium 133 mmol/L (136-145)
[2023-09-26 20:25] LABS: Potassium 2.8 mmoL/L (3.5-5.1)
[2023-09-26] MEDS: POTASSIUM CHLORIDE 20MEQ TAB 60 MEQ PO (21:09)
[2023-09-26 22:14] LABS: Chloride 97 mmol/L (98-107); Sodium 134 mmol/L (136-145)
[2023-09-26 22:17] LABS: Anion Gap 8.9 mEq/L (5-15); Blood Urea Nitrogen 16 mg/dl (7-17); Calcium 9.7 mg/dl (8.4-10.2); Carbon Dioxide 31 mmol/L (22.0-30.0); Creatinine Clearance Estimated 55 mL/min (50-200); Estimated Glomerular Filt Rate 42 ml/min (>60); GFR (African American) 50 ML/MIN (>60); Glucose 123 mg/dl (74-100)
[2023-09-26 22:27] LABS: Potassium 2.9 mmoL/L (3.5-5.1)
[2023-09-27] VITALS (9 sets, daily range): BP systolic 117–182; BP diastolic 73–102; PULSE 70–83; RESP 12–22; TEMP 36.6; O2SAT 92–97; BMI 24.3
[2023-09-27] MEDS: NITROPRUSSIDE SODIUM 50 MG in DEXTROSE 5 % IN WATER 250 ML 29.1499999999999986 MG IV (05:03)
[2023-09-27] MEDS: FLUTICASONE/SALMETEROL 100/50MCG DISKUS 1 PUFF IH (05:55)
[2023-09-27 06:35] LABS: Basophils # 0.1 K/mm3 (0-0.2); Basophils % 0.7 % (0.1-2.0); Eosinophils # 0.1 K/mm3 (0.0-0.4); Eosinophils % 0.6 % (0.1-12.0); Hematocrit 42.5 % (37.0-47.0); Lymphocytes # 2.4 K/mm3 (0.7-4.5); Lymphocytes % 19.6 % (10-50); Mean Corpuscular HGB Conc 32.9 g/dL (31.8-35.4); Mean Corpuscular Hemoglobin 29.5 pg (27.0-31.2); Mean Corpuscular Volume 89.6 fl (81-99); Mean Platelet Volume 7.3 fl (7.4-10.4); Monocytes # 0.8 K/mm3 (0.1-1.0); Monocytes % 6.4 % (1.7-9.3); Neutrophils # 8.8 K/mm3 (1.8-7.8); Neutrophils % 72.7 % (37.0-80.0); Platelet Count 498 K/mm3 (142-424); Red Blood Count 4.75 M/mm3 (4.20-5.40); Red Cell Distribution Width 14.3 % (11.5-17.5)
[2023-09-27 07:07] LABS: Alanine Aminotransferase 22 U/L (12-78); Albumin Level 3.9 g/dl (3.5-5.0); Albumin/Globulin Ratio 1.3 (1.1-1.8); Alkaline Phosphatase 142 U/L (38-126); Anion Gap 9.7 mEq/L (5-15); Aspartate Amino Transferase 35 U/L (14-36); Bilirubin,Total 0.7 mg/dl (0.2-1.3); Blood Urea Nitrogen 19 mg/dl (7-17); Calcium 9.8 mg/dl (8.4-10.2); Carbon Dioxide 32 mmol/L (22.0-30.0); Chloride 97 mmol/L (98-107); Creatinine Clearance Estimated 55 mL/min (50-200); Estimated Glomerular Filt Rate 42 ml/min (>60); GFR (African American) 50 ML/MIN (>60); Globulin 2.9 g/dL (1.3-3.2); Glucose 101 mg/dl (74-100); Magnesium 2.1 mg/dl (1.6-2.3); Sodium 136 mmol/L (136-145); Total Protein,Serum 6.8 g/dl (6.3-8.2)
[2023-09-27 07:31] LABS: Potassium 2.7 mmoL/L (3.5-5.1)
[2023-09-27] MEDS: APAP/HYDROCODONE 325MG/7.5MG TAB 1 TAB PO ×2 (07:50→15:14)
[2023-09-27] MEDS: IRBESARTAN 300MG TABLET 300 MG PO (08:33)
[2023-09-27] MEDS: POTASSIUM CHLORIDE 20MEQ TAB 80 MEQ PO (08:33)
[2023-09-27] MEDS: buPROPion HCl SR 150MG TAB 300 MG PO (08:33)
[2023-09-27] MEDS: ISOSORBIDE MONO 30MG TAB.ER.24H 30 MG PO (08:33)
[2023-09-27] MEDS: hydroCHLOROthiazide 25MG TABLET 25 MG PO (08:34)
[2023-09-27] MEDS: ASPIRIN EC 81MG TABLET 81 MG PO (08:34)
[2023-09-27] MEDS: METOPROLOL SUCCINATE XL 25MG TABLET 25 MG PO (08:34)
[2023-09-27] MEDS: GABAPENTIN 300MG CAPSULE 300 MG PO ×2 (08:34→12:03)
[2023-09-27] MEDS: EZETIMIBE 10MG TABLET 10 MG PO (08:34)
[2023-09-27] MEDS: FAMOTIDINE 20MG TABLET 10 MG PO (08:35)
[2023-09-27] MEDS: TICAGRELOR 90MG TABLET 90 MG PO (08:35)
--- NOTE | 2023-09-27 09:20 | PC.NURSE ---
Addendum entered by Charleen Styles RN 09/27/23 09:27: cardiology notified. Original Note: 0900 bp was 196/108. 0917 bp 115/68. nipride drip stopped at this time.
--- NOTE | 2023-09-27 09:39 | CARE MANAGER ---
Vital Signs (72 hours) 09/26/23 10:10 09/26/23 11:01 09/26/23 11:36 Temperature 98.6 F Pulse Rate 72 70 Pulse Rate [Apical] Pulse Rate [Radial] 79 Respiratory Rate 16 13 21 Blood Pressure 202/127 H 217/110 H Blood Pressure [Left Arm] Blood Pressure [Right Arm] 250/132 H 02 Sat by Pulse Oximetry 99 98 98 Oxygen Delivery Method Room Air Room Air 09/26/23 11:41 09/26/23 11:54 09/26/23 12:00 Temperature Pulse Rate 70 71 70 Pulse Rate [Apical] Pulse Rate [Radial] Respiratory Rate 17 16 16 Blood Pressure 224/107 H 213/110 H 192/102 H Blood Pressure [Left Arm] Blood Pressure [Right Arm] 02 Sat by Pulse Oximetry 98 97 96 Oxygen Delivery Method 09/26/23 12:41 09/26/23 12:58 09/26/23 13:00 Temperature Pulse Rate 71 70 70 Pulse Rate [Apical] Pulse Rate [Radial] Respiratory Rate 16 16 16 Blood Pressure 226/111 H 210/116 H 206/118 H Blood Pressure [Left Arm] Blood Pressure [Right Arm] 02 Sat by Pulse Oximetry 96 97 98 Oxygen Delivery Method 09/26/23 13:06 09/26/23 13:20 09/26/23 13:25 Temperature Pulse Rate 70 76 74 Pulse Rate [Apical] Pulse Rate [Radial] Respiratory Rate 12 12 16 Blood Pressure 195/95 H 221/113 H 196/119 H Blood Pressure [Left Arm] Blood Pressure [Right Arm] 02 Sat by Pulse Oximetry 96 96 96 Oxygen Delivery Method 09/26/23 13:31 09/26/23 13:47 09/26/23 14:00 Temperature Pulse Rate 71 71 70 Pulse Rate [Apical] Pulse Rate [Radial] Respiratory Rate 16 16 16 Blood Pressure 210/123 H 164/97 H 195/103 H Blood Pressure [Left Arm] Blood Pressure [Right Arm] 02 Sat by Pulse Oximetry 95 96 96 Oxygen Delivery Method 09/26/23 14:19 09/26/23 14:31 09/26/23 14:51 Temperature Pulse Rate 71 70 70 Pulse Rate [Apical] Pulse Rate [Radial] Respiratory Rate 16 16 16 Blood Pressure 260/125 H 229/134 H 247/136 H Blood Pressure [Left Arm] Blood Pressure [Right Arm] 02 Sat by Pulse Oximetry 96 96 96 Oxygen Delivery Method 09/26/23 15:00 09/26/23 15:31 09/26/23 15:45 Temperature 98.7 F Pulse Rate 70 78 79 Pulse Rate [Apical] Pulse Rate [Radial] Respiratory Rate 16 16 18 Blood Pressure 215/105 H 155/88 H 155/88 H Blood Pressure [Left Arm] Blood Pressure [Right Arm] 02 Sat by Pulse Oximetry 96 95 Oxygen Delivery Method Room Air 09/26/23 16:00 09/26/23 16:00 09/26/23 16:15 Temperature 98 F Pulse Rate 70 Pulse Rate [Apical] 97 H 71 Pulse Rate [Radial] Respiratory Rate 15 16 Blood Pressure Blood Pressure [Left Arm] 148/90 H 167/82 H Blood Pressure [Right Arm] 02 Sat by Pulse Oximetry 97 95 Oxygen Delivery Method Room Air Room Air 09/26/23 16:30 09/26/23 16:30 09/26/23 16:45 Temperature Pulse Rate Pulse Rate [Apical] 70 70 70 Pulse Rate [Radial] Respiratory Rate 18 16 Blood Pressure Blood Pressure [Left Arm] 161/85 H 168/86 H Blood Pressure [Right Arm] 02 Sat by Pulse Oximetry 95 95 95 Oxygen Delivery Method Room Air Room Air Room Air 09/26/23 17:00 09/26/23 18:00 09/26/23 18:15 Temperature Pulse Rate Pulse Rate [Apical] 70 70 Pulse Rate [Radial] Respiratory Rate 16 18 Blood Pressure Blood Pressure [Left Arm] 171/92 H 169/94 H Blood Pressure [Right Arm] 02 Sat by Pulse Oximetry 93 L 96 Oxygen Delivery Method Room Air Room Air Room Air 09/26/23 18:31 09/26/23 18:45 09/26/23 18:49 Temperature Pulse Rate Pulse Rate [Apical] 70 70 Pulse Rate [Radial] Respiratory Rate 18 18 Blood Pressure Blood Pressure [Left Arm] 181/98 H 174/91 H Blood Pressure [Right Arm] 02 Sat by Pulse Oximetry 94 L 95 Oxygen Delivery Method Room Air Room Air Room Air 09/26/23 19:00 09/26/23 20:00 09/26/23 20:00 Temperature Pulse Rate Pulse Rate [Apical] 70 70 80 Pulse Rate [Radial] Respiratory Rate 16 26 H Blood Pressure Blood Pressure [Left Arm] 154/88 H 159/60 H Blood Pressure [Right Arm] 02 Sat by Pulse Oximetry 94 L 93 L 96 Oxygen Delivery Method Room Air Room Air Room Air 09/26/23 20:00 09/26/23 20:00 09/26/23 22:00 Temperature 98.5 F Pulse Rate 70 Pulse Rate [Apical] 70 Pulse Rate [Radial] Respiratory Rate 16 Blood Pressure Blood Pressure [Left Arm] 154/84 H Blood Pressure [Right Arm] 02 Sat by Pulse Oximetry 94 L Oxygen Delivery Method Room Air 09/27/23 00:00 09/27/23 00:00 09/27/23 02:00 Temperature Pulse Rate 70 Pulse Rate [Apical] 70 76 Pulse Rate [Radial] Respiratory Rate 16 12 Blood Pressure Blood Pressure [Left Arm] 164/85 H 167/98 H Blood Pressure [Right Arm] 02 Sat by Pulse Oximetry 94 L 94 L Oxygen Delivery Method Room Air Room Air 09/27/23 04:00 09/27/23 04:00 09/27/23 04:00 Temperature Pulse Rate 78 Pulse Rate [Apical] 77 Pulse Rate [Radial] Respiratory Rate 14 Blood Pressure Blood Pressure [Left Arm] 169/91 H Blood Pressure [Right Arm] 02 Sat by Pulse Oximetry 93 L 92 L Oxygen Delivery Method Room Air Room Air 09/27/23 06:00 09/27/23 08:00 09/27/23 08:00 Temperature Pulse Rate Pulse Rate [Apical] 77 83 Pulse Rate [Radial] Respiratory Rate 20 Blood Pressure Blood Pressure [Left Arm] 174/90 H 182/102 H Blood Pressure [Right Arm] 02 Sat by Pulse Oximetry 96 94 L Oxygen Delivery Method Room Air Room Air Room Air 09/27/23 08:00 09/27/23 08:25 Temperature Pulse Rate 75 Pulse Rate [Apical] Pulse Rate [Radial] Respiratory Rate Blood Pressure Blood Pressure [Left Arm] Blood Pressure [Right Arm] 02 Sat by Pulse Oximetry Oxygen Delivery Method Room Air
--- NOTE | 2023-09-27 14:15 | P.PN_ITS ---
Subjective Subjective Date: 09/27/23 Time: 10:00 Interval history: BP well controlled with administration of home meds. No events overnight. Ongoing mild nausea and epigastric discomfort. Exam Data for Last 24 hours Vital signs and Labs for Last 24 Hours: Temp Pulse Resp BP Pulse Ox O2 Del Method 98.5 F 70 20 123/73 97 Room Air 09/26/23 20:00 09/27/23 14:00 09/27/23 14:00 09/27/23 14:00 09/27/23 14:00 09/27/23 14:00 Laboratory Results - last 24 hr 09/26/23 13:53: Lactate 1.0, Troponin I < 0.01 09/26/23 17:36: Troponin I 0.02 09/26/23 20:08: Sodium 133 L, Potassium 2.8 L*, Chloride 97 L, Carbon Dioxide 29, Anion Gap 9.8, BUN 17, Creatinine 1.20 H, Estimated Creat Clear 59, Estimated GFR 46 L, Est GFR ( Amer) 55 L D, Glucose 135 H, Calcium 9.6 09/26/23 21:56: Sodium 134 L, Potassium 2.9 L*, Chloride 97 L, Carbon Dioxide 31 H, Anion Gap 8.9, BUN 16, Creatinine 1.30 H, Estimated Creat Clear 55, Estimated GFR 42 L, Est GFR ( Amer) 50 L, Glucose 123 H, Calcium 9.7 09/27/23 05:31: WBC 12.0 H, RBC 4.75, Hgb 14.0, Hct 42.5, MCV 89.6, MCH 29.5, MCHC 32.9, RDW 14.3, Plt Count 498 H, MPV 7.3 L, Neut % (Auto) 72.7, Lymph % (Auto) 19.6, Roane % (Auto) 6.4, Eos % (Auto) 0.6, Baso % (Auto) 0.7, Neut # (Auto) 8.8 H, Lymph # (Auto) 2.4, Ro[place] # (Auto) 0.8, Eos # (Auto) 0.1, Baso # (Auto) 0.1, Sodium 136, Potassium 2.7 L*, Chloride 97 L, Carbon Dioxide 32 H, Anion Gap 9.7, BUN 19 H, Creatinine 1.30 H, Estimated Creat Clear 55, Estimated GFR 42 L, Est GFR ( Amer) 50 L, Glucose 101 H, Calcium 9.8, Magnesium 2.1, Total Bilirubin 0.7, AST 35, ALT 22, Alkaline Phosphatase 142 H, Total Protein 6.8, Albumin 3.9 D, Globulin 2.9, Albumin/Globulin Ratio 1.3 I & O for Last 24 hours: Intake & Output 09/24/23 09/25/23 09/26/23 09/27/23 23:59 23:59 23:59 23:59 Intake Total 395.585 / 395.585 102.266 / 102.266 Output Total 750 / 750 Balance 395.585 / 395.585 -647.734 / -647.734 Weight 170 lb 14.4 oz 170 lb 4.8 oz Constitutional Constitutional: no acute distress and cooperative *Routine HEENT Exam Eye: Present PERRL *Routine Respiratory Exam Respiratory: Present CTA bilaterally; Absent accessory muscle use, wheezes or crackles *Routine Cardiovascular Exam Cardiovascular: Present RRR, Normal S1 and Normal S2; Absent murmur, gallop or rubs *Routine Abdominal Exam Abdominal: Present soft; Absent tenderness *Routine Extremities Exam Extremities: Present pulses intact; Absent cyanosis or edema *Routine Skin Exam Skin: Present intact; Absent erythema or wounds *Routine Neurological Exam Neurological: Present alert and oriented X3 Routine Psychiatric Exam Psychiatric: Present cooperative Progress Note: A&P Assessment and plan (1) Hypertensive emergency: Status: Acute (2) Occlusion of superior mesenteric artery: Status: Acute (3) Hypokalemia: Status: Acute (4) Chronic pain: Status: Acute (5) Major depressive disorder: Status: Acute (6) Tobacco user: Status: Acute (7) Cardiac pacemaker in situ: Status: Acute (8) Carotid artery stenosis: Problem details: Being followed by cardiology. Status: Acute (9) Chronic kidney disease, stage 3b: Problem details: She has an appointment with a drafter electronic in August. 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 - cont home meds MV-CAD sp CABG 2019, DENILSON 2021 - relook cath 05/2023 showed high risk non amenable arteries - she has CP with her elevated BP but EKG shows SR, RBBB but no acute ischemia - resume home meds - Metoprolol, Irbesartan, Imdur, HCTZ - CT and recent cath films reviewed - not a candidate for further intervention Renal Artery Stenosis - occluded right renal artery with severe renal atrophy - chronic per chart - cont DAPT, Statin, stop smoking 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 Her significant ASCVD and blockages were discussed in detail with Dr. Dyson who reviewed her images and recent films and states she is not currently a candidate for further intervention and she is very high procedural risk for complication. He recommends medical therapy. Pt needs compliance with daily meds and needs 100% smoking cessation.
--- OUTSIDE RECORDS SUMMARY | 2023-09-27 14:23 | XMS_ITS | Clinical Summary ---
Author Name Unknown Address [address] [facility] [place] [address] Phone Organization [facility] Address [address] [place] [address] Phone Care Team Providers Care Security Delivery Specialist Name Role Phone Unavailable Unavailable Conditions or Problems No information available. Medications No information available. Medications Administered No information available. Allergies, Adverse Reactions, Alerts No information available. Results No information available. Plan of Care No information available. Procedures No information available. Vital Signs No information available. Immunizations No information available. Advance Directives No information available.
[2023-09-27 16:21] LABS: Potassium 3.2 mmoL/L (3.5-5.1)
--- NOTE | 2023-09-27 16:30 | PC.NURSE ---
spoke with MD regarding repeat potassium results
--- NOTE | 2023-09-27 17:01 | EXP.DC.SUM ---
General Admission date:: 09/27/23 Discharge date: 09/27/23 HPI HPI HPI: Ms. Moffett is a 63-year-old female with complex past medical cardiac history including CABG, stents, CAD, pacemaker, continues to smoke. Has hypertension and hyperlipidemia. Presented to the ER for evaluation with concern of chest pain radiating down her arm. Denies any syncope or headache. Does complain of some mild nausea. Patient says she woke up in her normal state of health around 8 AM and took her meds. This when she started to feel sick. On arrival to the ER, patient had received aspirin, nitro, Phenergan with EMS. Has been a little bit more confused since arriving to the ER in the floor after admission. Workup concerning for hypertensive emergency with systolics in the 230s. Received droperidol for nausea. Noted to have severely depleted potassium at 2.7. Patient started on nitroprusside drip and medicine was consulted for admission. On arrival to the floor, patient's blood pressure is doing better with systolics in the 160s to 170s. Cardiology is consulted to assist with care. She is sleeping due to sedating medications including Phenergan. Unable to get much history or review of systems from patient due to her sleeping.Review of workup shows normal hemoglobin and white cell count, kidney function with creatinine 1.5 which appears to be her baseline, CTA of chest reviewed showing no PEs. Head CT unremarkable. Hospital Course Hospital Course Hospital Course: Ms. Moffett is a 63-year-old female with significant past medical history. Presented to the ER with severe hypertension and chest pain. Discussed case with ER, request admission for hypertensive emergency and further management of hypokalemia. Medicine agreed to admit. Cardiology consulted. Hypertensive emergency History of CABG CAD status post stenting no further intervention needed per cardiology f/u as OP Hypokalemia - replace and monitor Depression/anxiety patient is stable for discharge per cardiology, f/u as OP total time - 38 mins Exam Data for Last 24 hours Vital signs and Labs for Last 24 Hours: Temp Pulse Resp BP Pulse Ox O2 Del Method 97.8 F 73 22 138/78 93 L Room Air 09/27/23 15:55 09/27/23 15:55 09/27/23 15:55 09/27/23 15:55 09/27/23 15:55 09/27/23 15:55 Laboratory Results - last 24 hr 09/26/23 17:36: Troponin I 0.02 09/26/23 20:08: Sodium 133 L, Potassium 2.8 L*, Chloride 97 L, Carbon Dioxide 29, Anion Gap 9.8, BUN 17, Creatinine 1.20 H, Estimated Creat Clear 59, Estimated GFR 46 L, Est GFR ( Amer) 55 L D, Glucose 135 H, Calcium 9.6 09/26/23 21:56: Sodium 134 L, Potassium 2.9 L*, Chloride 97 L, Carbon Dioxide 31 H, Anion Gap 8.9, BUN 16, Creatinine 1.30 H, Estimated Creat Clear 55, Estimated GFR 42 L, Est GFR ( Amer) 50 L, Glucose 123 H, Calcium 9.7 09/27/23 05:31: WBC 12.0 H, RBC 4.75, Hgb 14.0, Hct 42.5, MCV 89.6, MCH 29.5, MCHC 32.9, RDW 14.3, Plt Count 498 H, MPV 7.3 L, Neut % (Auto) 72.7, Lymph % (Auto) 19.6, [place] % (Auto) 6.4, Eos % (Auto) 0.6, Baso % (Auto) 0.7, Neut # (Auto) 8.8 H, Lymph # (Auto) 2.4, [place] # (Auto) 0.8, Eos # (Auto) 0.1, Baso # (Auto) 0.1, Sodium 136, Potassium 2.7 L*, Chloride 97 L, Carbon Dioxide 32 H, Anion Gap 9.7, BUN 19 H, Creatinine 1.30 H, Estimated Creat Clear 55, Estimated GFR 42 L, Est GFR ( Amer) 50 L, Glucose 101 H, Calcium 9.8, Magnesium 2.1, Total Bilirubin 0.7, AST 35, ALT 22, Alkaline Phosphatase 142 H, Total Protein 6.8, Albumin 3.9 D, Globulin 2.9, Albumin/Globulin Ratio 1.3 09/27/23 16:09: Potassium 3.2 L I & O for Last 24 hours: Intake & Output 09/24/23 09/25/23 09/26/23 09/27/23 23:59 23:59 23:59 23:59 Intake Total 395.585 / 395.585 102.266 / 102.266 Output Total 750 / 750 Balance 395.585 / 395.585 -647.734 / -647.734 Weight 77.519 kg 77.247 kg Constitutional Constitutional: no acute distress *Routine HEENT Exam Head: Present normocephalic Eye: Present EOMI and PERRL ENT: Present mucous membranes moist *Routine Neck Exam Neck: Present supple; Absent lymphadenopathy *Routine Respiratory Exam Respiratory: Present CTA bilaterally *Routine Cardiovascular Exam Cardiovascular: Present RRR *Routine Abdominal Exam Abdominal: Present soft and normoactive bowel sounds; Absent tenderness *Routine Extremities Exam Extremities: Absent cyanosis, clubbing or edema *Routine Skin Exam Skin: Present warm; Absent rash *Routine Neurological Exam Neurological: Present alert and oriented X3 Results Data Completed and Pending Labs on day of discharge: Labs from last 24 hours 09/27/23 09/27/23 09/26/23 16:09 05:31 21:56 WBC 12.0 H RBC 4.75 Hgb 14.0 Hct 42.5 MCV 89.6 MCH 29.5 MCHC 32.9 RDW 14.3 Plt Count 498 H MPV 7.3 L Neut % (Auto) 72.7 Lymph % (Auto) 19.6 [place] % (Auto) 6.4 Eos % (Auto) 0.6 Baso % (Auto) 0.7 Neut # (Auto) 8.8 H Lymph # (Auto) 2.4 [place] # (Auto) 0.8 Eos # (Auto) 0.1 Baso # (Auto) 0.1 Sodium 136 134 L Potassium 3.2 L 2.7 L* 2.9 L* Chloride 97 L 97 L Carbon Dioxide 32 H 31 H Anion Gap 9.7 8.9 BUN 19 H 16 Creatinine 1.30 H 1.30 H Estimated Creat Clear 55 55 Estimated GFR 42 L 42 L Est GFR ( Amer) 50 L 50 L Glucose 101 H 123 H Calcium 9.8 9.7 Magnesium 2.1 Total Bilirubin 0.7 AST 35 ALT 22 Alkaline Phosphatase 142 H Troponin I Total Protein 6.8 Albumin 3.9 D Globulin 2.9 Albumin/Globulin Ratio 1.3 09/26/23 09/26/23 20:08 17:36 WBC RBC Hgb Hct MCV MCH MCHC RDW Plt Count MPV Neut % (Auto) Lymph % (Auto) [place] % (Auto) Eos % (Auto) Baso % (Auto) Neut # (Auto) Lymph # (Auto) [place] # (Auto) Eos # (Auto) Baso # (Auto) Sodium 133 L Potassium 2.8 L* Chloride 97 L Carbon Dioxide 29 Anion Gap 9.8 BUN 17 Creatinine 1.20 H Estimated Creat Clear 59 Estimated GFR 46 L Est GFR ( Amer) 55 L D Glucose 135 H Calcium 9.6 Magnesium Total Bilirubin AST ALT Alkaline Phosphatase Troponin I 0.02 Total Protein Albumin Globulin Albumin/Globulin Ratio DS: Diagnosis Discharge Diagnosis (1) Hypertensive emergency: Status: Acute Code(s): I16.1 - Hypertensive emergency (2) Occlusion of superior mesenteric artery: Status: Acute Code(s): K55.069 - Acute infarction of intestine, part and extent unspecified (3) Hypokalemia: Status: Acute Code(s): E87.6 - Hypokalemia (4) Chronic pain: Status: Acute Code(s): G89.29 - Other chronic pain Qualifiers: Chronic pain type: other chronic pain Qualified Code(s): G89.29 - Other chronic pain (5) Major depressive disorder: Status: Acute Code(s): F32.9 - Major depressive disorder, single episode, unspecified Qualifiers: Active/Remission status: remission status unspecified Major depression recurrence: recurrent Qualified Code(s): F33.9 - Major depressive disorder, recurrent, unspecified (6) Tobacco user: Status: Acute Code(s): Z72.0 - Tobacco use (7) Cardiac pacemaker in situ: Status: Acute Code(s): Z95.0 - Presence of cardiac pacemaker (8) Carotid artery stenosis: Status: Acute Code(s): I65.29 - Occlusion and stenosis of unspecified carotid artery Qualifiers: Laterality: bilateral Qualified Code(s): I65.23 - Occlusion and stenosis of bilateral carotid arteries Problem details: Being followed by cardiology. (9) Chronic kidney disease, stage 3b: Status: Acute Code(s): N18.32 - Chronic kidney disease, stage 3b Problem details: She has an appointment with a hyperbaric tech in August. Meds Home Medications and Allergies Home Medications Medication Instructions Recorded Confirmed Type aspirin 81 mg tablet,delayed 81 mg PO DAILY Heart disease #90 03/17/20 09/26/23 Rx release tabs fluticasone propionate 50 1 spray intranasal DAILY allergies 08/30/22 09/26/23 History mcg/actuation nasal spray,suspension nitroglycerin 0.4 mg sublingual 0.4 mg sublingual Q5M PRN chest 05/23/23 09/26/23 Rx tablet pain #20 tabs evolocumab 140 mg/mL subcutaneous 140 mg SQ Q2W #1 mL 06/14/23 09/27/23 Rx pen injector (Maral Campos) hydrochlorothiazide 25 mg tablet 25 mg PO DAILY 06/14/23 09/26/23 History lidocaine 5 % topical patch 1 patch topical DAILY 06/14/23 09/26/23 History atorvastatin 80 mg tablet 80 mg PO HS 09/27/23 09/27/23 History budesonide-formoterol HFA 80 1 puff inhalation BID 09/27/23 09/27/23 History mcg-4.5 mcg/actuation aerosol inhaler (Symbicort) bupropion HCl 300 mg 24 hr tablet, 300 mg PO DAILY 09/27/23 09/27/23 History extended release diazepam 10 mg tablet 10 mg PO BID Anxiety 09/27/23 09/27/23 History ergocalciferol (vitamin D2) 1,250 50,000 unit PO WEEKLY 09/27/23 09/27/23 History mcg (50,000 unit) capsule (Vitamin D2) ezetimibe 10 mg tablet 10 mg PO DAILY 09/27/23 09/27/23 History famotidine 20 mg tablet 20 mg PO DAILY GERD 09/27/23 09/27/23 History gabapentin 300 mg capsule 300 mg PO TID 09/27/23 09/27/23 History hydrocodone 7.5 mg-acetaminophen 1 tab PO QIDP PRN Pain, Moderate 09/27/23 09/27/23 History 325 mg tablet isosorbide mononitrate 30 mg 30 mg PO DAILY 09/27/23 09/27/23 History tablet,extended release 24 hr losartan 25 mg tablet 12.5 mg PO DAILY 09/27/23 09/27/23 History metoprolol succinate 25 mg 25 mg PO DAILY 09/27/23 09/27/23 History tablet,extended release 24 hr nicotine 14 mg/24 hr daily 1 patch transdermal DAILY 09/27/23 09/27/23 History transdermal patch nitroglycerin 0.4 mg sublingual 0.4 mg sublingual Q5MINP PRN Chest 09/27/23 09/27/23 History tablet Pain omeprazole 40 mg capsule,delayed 40 mg PO DAILY 09/27/23 09/27/23 History release polyethylene glycol 3350 17 17 g PO DAILY 09/27/23 09/27/23 History gram/dose oral powder (ClearLax) spironolactone 50 mg tablet 50 mg PO DAILY 09/27/23 09/27/23 History ticagrelor 90 mg tablet (Brilinta) 90 mg PO BID 09/27/23 09/27/23 History New Prescriptions to Start Prescriptions: Allergies Allergy/AdvReac Type Severity Reaction Status Date / Time codeine Allergy Intermediate Verified 08/01/23 09:46 acetaminophen [From Tylenol] Allergy Mild Verified 08/01/23 09:46 cephalexin Allergy Unknown Verified 08/01/23 09:46 doxycycline Allergy Unknown Verified 08/01/23 09:46 tramadol Allergy Unknown Verified 08/01/23 09:46 morphine AdvReac Verified 09/26/23 10:41 Discharge Plan Disposition Patient Disposition: Home, Self-Care Condition: Good Discharge Order Discharge Orders: Discharge Order (Routine); Ordered 09/27/23 Ordered By: Saman Chun Follow up Plan Follow up with: Jayant Novoa DO [Primary Care Provider] - 10/04/23 1:00 pm Hayder Meyer MD [Staff Physician] - 10/11/23 1:45 pm Prescriptions/Medication Reconciliation: Continued nitroglycerin 0.4 mg tablet, sublingual 0.4 mg sublingual Q5M PRN (Reason: chest pain) Qty: 20 0RF Rx Instructions: do not exceed 3 doses per episode aspirin 81 mg tablet,delayed release (DR/EC) 81 mg PO DAILY Qty: 90 0RF Hold Instructions: Resume on 06/16/23. Repatha SureClick 140 mg/mL pen injector 140 mg SQ Q2W Qty: 1 3RF atorvastatin 80 mg tablet 80 mg PO HS Patient Comments: TAKE ONE TABLET BY MOUTH AT BEDTIME NIGHTLY nicotine 14 mg/24 hr patch 24 hour 1 patch transdermal DAILY Patient Comments: APPLY 1 patch transdermally daily isosorbide mononitrate 30 mg tablet extended release 24 hr 30 mg PO DAILY Patient Comments: TAKE 1 TABLET(30 mg) orally daily for htn omeprazole 40 mg capsule,delayed release(DR/EC) 40 mg PO DAILY Patient Comments: TAKE 1 CAPSULE BY MOUTH EVERY DAY famotidine 20 mg tablet 20 mg PO DAILY Patient Comments: take 1 tablet orally daily for gerd hydrocodone-acetaminophen 7.5-325 mg tablet 1 tab PO QIDP PRN (Reason: Pain, Moderate) Patient Comments: TAKE 1 tab BY MOUTH four times a day As Needed for Moderate Pain (Scale Score 5-6) for 30 days losartan 25 mg tablet 12.5 mg PO DAILY Patient Comments: Take 1/2 /half tablets by mouth daily nitroglycerin 0.4 mg tablet, sublingual 0.4 mg sublingual Q5MINP PRN (Reason: Chest Pain) Patient Comments: take 1 tablet(0.4 mg) sublingually every 5 minutes As Needed for chest pain; do not exceed 3 doses per episode gabapentin 300 mg capsule 300 mg PO TID Patient Comments: take 1 capsule three times a day for neuropathic pain for 30 days metoprolol succinate 25 mg tablet extended release 24 hr 25 mg PO DAILY Patient Comments: TAKE ONE TABLET BY MOUTH EVERY DAY ergocalciferol (vitamin D2) [Vitamin D2] 1,250 mcg (50,000 unit) capsule 50,000 unit PO WEEKLY Patient Comments: TAKE ONE CAPSULE BY MOUTH WEEKLY DIRECTED diazepam 10 mg tablet 10 mg PO BID Patient Comments: take 1 tablet(10 mg) orally twice a day for Anxiety polyethylene glycol 3350 [ClearLax] 17 gram/dose powder 17 g PO DAILY spironolactone 50 mg tablet 50 mg PO DAILY Patient Comments: Take 1 tablet by mouth daily ezetimibe 10 mg tablet 10 mg PO DAILY Patient Comments: TAKE ONE TABLET BY MOUTH DAILY bupropion HCl 300 mg tablet extended release 24 hr 300 mg PO DAILY Patient Comments: take 1 tablet(300 mg) orally daily for 30 days budesonide-formoterol [Symbicort] 80-4.5 mcg/actuation HFA aerosol inhaler 1 puff INHALATION BID Patient Comments: inhale ONE PUFF TWICE DAILY Brilinta 90 mg tablet 90 mg PO BID Patient Comments: TAKE 1 TABLET(90 MG) orally twice a day for Blood thinner fluticasone propionate 50 mcg/actuation spray,suspension 1 spray intranasal DAILY Rx Instructions: INSTILL 1 SPRAY INTO EACH NOSTRIL EVERY DAY lidocaine 5 % adhesive patch,medicated 1 patch topical DAILY Rx Instructions: APPLY ONE PATCH DAILY LEAVE ON MOST PAINFUL AREA FOR UP TO 12 HOURS hydrochlorothiazide 25 mg tablet 25 mg PO DAILY Rx Instructions: TAKE ONE TABLET BY MOUTH EVERY DAY Problem Reconciliation Problems Reviewed?: Yes Patient Discharge Instructions ACTIVITY: Ambulate as tolerated DIET: continue same diet Patient Instructions: Hypertension (Alternative Therapy), Angina, Lifestyle Habits May Lower Risk of Hypertension in Women Providers Primary Care Provider: Jayant Novoa Admit Provider: Angelito Perez Attending Provider: Agnelito Perez
[2023-09-27] MEDS: POTASSIUM CHLORIDE 20MEQ TAB 40 MEQ PO (17:02)
--- OUTSIDE RECORDS SUMMARY | 2023-09-28 07:36 | XMS_ITS | Clinical Summary ---
Author Name Unknown Address [address] [place] [address] Phone Organization [facility] Address [address] [place] [address] Phone Care Team Providers Care Supply Chain Buyer Name Role Phone Unavailable Unavailable Conditions or Problems No information available. Medications No information available. Medications Administered No information available. Allergies, Adverse Reactions, Alerts No information available. Results No information available. Plan of Care No information available. Procedures No information available. Vital Signs No information available. Immunizations No information available. Advance Directives No information available.
--- NOTE | 2023-09-28 13:00 | CARE MANAGER ---
Contacted patient related to hospital discharge. She states she is about the same. She is scheduled to see her PCP tomorrow. She is aware of follow up appointment with cardiology and is trying to schedule her nephrology appt sooner as well. Denies questions or concerns at this time. FILIPE Henson
== END 2023-09-27 17:25 | disposition home or self-care (01) | DRG 305 ==
LOC: ER 14:54 → 2ND 15:44
PROVIDERS: Internal Medicine; Nurse Practitioner Acute Care; Admitting Provider Internal Medicine Adolescent Medicine; Emergency Provider Emergency Medicine; PCP Internal Medicine; Visit Provider Internal Medicine Adolescent Medicine
DX: I16.1 Hypertensive emergency (principal); N18.32 Chronic kidney disease, stage 3b; I65.23 Occlusion and stenosis of bilateral carotid arteries; I12.9 Hypertensive chronic kidney disease with stage 1 through stage 4 chronic kidney disease, or unspecified chronic kidney disease; N18.9 Chronic kidney disease, unspecified; I25.10 Atherosclerotic heart disease of native coronary artery without angina pectoris; Z95.0 Presence of cardiac pacemaker; K21.9 Gastro-esophageal reflux disease without esophagitis; F32.A Depression, unspecified; E78.5 Hyperlipidemia, unspecified; G62.9 Polyneuropathy, unspecified; F41.9 Anxiety disorder, unspecified; E87.6 Hypokalemia; Z75.5 Holiday relief care; I77.1 Stricture of artery; Z71.6 Tobacco abuse counseling; F17.200 Nicotine dependence, unspecified, uncomplicated; Z95.1 Presence of aortocoronary bypass graft
CPT/HCPCS: 36415; 70450; 71045; 71275; 74174; 80048; 80053; 83605; 83690; 83735; 84132; 84484; 85025; 93005; 99291; J1790; J2405; Q9967

== ENCOUNTER 2023-12-19 10:58 | Outpatient (CLI) | payer OTHER, SELFPAY ==
[2023-12-19 18:36] LABS: Basophils # 0.1 K/mm3 (0-0.2); Basophils % 0.7 % (0.1-2.0); Eosinophils # 0.2 K/mm3 (0.0-0.4); Eosinophils % 2.3 % (0.1-12.0); Hematocrit 42.4 % (37.0-47.0); Hemoglobin 13.6 g/dL (12.2-16.2); Lymphocytes # 2.1 K/mm3 (0.7-4.5); Lymphocytes % 23.1 % (10-50); Mean Corpuscular HGB Conc 32.1 g/dL (31.8-35.4); Mean Corpuscular Hemoglobin 31.1 pg (27.0-31.2); Mean Corpuscular Volume 96.9 fl (81-99); Mean Platelet Volume 7.9 fl (7.4-10.4); Monocytes # 0.6 K/mm3 (0.1-1.0); Monocytes % 6.3 % (1.7-9.3); Neutrophils % 67.6 % (37.0-80.0); Platelet Count 348 K/mm3 (142-424); Red Blood Count 4.38 M/mm3 (4.20-5.40); Red Cell Distribution Width 14.8 % (11.5-17.5); White Blood Count 8.9 K/mm3 (4.8-10.8)
[2023-12-19 18:48] LABS: Alanine Aminotransferase 16 U/L (12-78); Albumin Level 3.7 g/dl (3.5-5.0); Albumin/Globulin Ratio 1.4 (1.1-1.8); Alkaline Phosphatase 95 U/L (38-126); Anion Gap 11.2 mEq/L (5-15); Aspartate Amino Transferase 24 U/L (14-36); Bilirubin,Total 0.5 mg/dl (0.2-1.3); Blood Urea Nitrogen 16 mg/dl (7-17); Calcium 9.6 mg/dl (8.4-10.2); Carbon Dioxide 26 mmol/L (22.0-30.0); Chloride 107 mmol/L (98-107); Chol/HDL Ratio 3.9 (1-3.5); Cholesterol 197 mg/dl (140-200); Estimated Glomerular Filt Rate 38 ml/min (>60); GFR (African American) 46 ML/MIN (>60); Globulin 2.7 g/dL (1.3-3.2); Glucose 60 mg/dl (74-100); HDL Cholesterol 50 mg/dl (40-60); Potassium 4.2 mmoL/L (3.5-5.1); Sodium 140 mmol/L (136-145); Total Protein,Serum 6.4 g/dl (6.3-8.2); Triglycerides 174 mg/dl (30-150); VLDL Cholesterol 35 mg/dL (0-40)
[2023-12-19 18:59] LABS: Direct LDL Cholesterol 98.61 mg/dL (100-129)
[2023-12-27 21:41] LABS: 1,25 Dihydroxy Vitamin D 29 pg/mL (.); 1,25-Dihydroxy, Vitamin D-2 18 pg/mL (.); 1,25-Dihydroxy, Vitamin D-3 11 pg/mL (.)
== END 2023-12-19 23:59 | disposition home or self-care (01) ==
LOC: LAB.DROPOF 12-20 10:58
PROVIDERS: PCP Internal Medicine; Visit Provider Internal Medicine
DX: E55.9 Vitamin D deficiency, unspecified (principal); N18.32 Chronic kidney disease, stage 3b; E78.5 Hyperlipidemia, unspecified; R11.2 Nausea with vomiting, unspecified; Z79.899 Other long term (current) drug therapy
CPT/HCPCS: 80053; 80061; 82652; 85025

== ENCOUNTER 2024-01-20 13:29 | Outpatient (CLI) | payer OTHER, SELFPAY ==
--- NOTE | 2024-01-20 13:40 | MM_ITS ---
PROCEDURE INFORMATION: Exam: MG Bilateral Screening 3D Mammography Exam date and time: 01/20/2024 1:31 PM Age: 63 years old Clinical indication: Screening. No family history of breast cancer. TECHNIQUE: Imaging protocol: Bilateral Screening tomosynthesis and 2D mammography including computer-aided detection (CAD) when performed. COMPARISON: 1. MG Screening-Bilateral Mammography 05/22/2020 5:50 PM 2. MG MAMMO ADDITIONAL VIEWS RT 10/07/2016 9:50 AM 3. MG Screening-Bilateral Mammography 09/29/2016 11:58 AM 4. US BREAST limited RT 10/07/2016 8:26 AM FINDINGS: MAMMOGRAPHY: Breast composition: There are scattered areas of fibroglandular density. Mass: None. Architectural distortion: None. Calcifications: Questionable grouping of calcifications in the left upper breast posterior 3rd which is superficial not definitely shown related to the skin in the tomosynthesis sequences. Asymmetric density: None. Skin thickening: None. Axillary adenopathy: None. IMPRESSION: Patient to be recalled for left diagnostic mammography which may include tangential view, XCCL, and magnification true lateral for further evaluation of questionable left calcifications. ASSESSMENT: BI-RADS Category 0: Incomplete: Need Additional Imaging Evaluation and/or Prior Mammograms for Comparison
== END 2024-01-20 23:59 | disposition home or self-care (01) ==
LOC: RAD 13:30
PROVIDERS: PCP Internal Medicine; Visit Provider Internal Medicine
DX: Z12.31 Encounter for screening mammogram for malignant neoplasm of breast (principal)
CPT/HCPCS: 77063; 77067

== ENCOUNTER 2024-03-13 10:36 | Outpatient (CLI) | payer OTHER, SELFPAY ==
--- NOTE | 2024-03-13 10:41 | CA_ITS ---
APPROVED REPORT EXAM: Comprehensive 2D, Doppler, and color-flow Echocardiogram Pouncer: Jessenia Lord RT(R) Ht: 5 ft 10 in Wt: 171lbs BSA: 1.95 BP: 138/80 mmHg Indications: CAD, HTN, smoker, SOB, HTN, hyperlipidemia, pacemaker, CABG, fatigue 2D Dimensions LVEF (Arceo's) 55.10 % F: 54 - 74 LV Volume 95.40 mL F: 46 - 106 LV Volume Index 48.9 mL/m2 F: 29 - 61 LA Volume 28.20 mL LA Volume Index 14.46 mL/m2 (M/F) 16-34 EF AP4 55.80 % EF AP2 58.1 % EF BP 55.1 % GL Strain -16.4 % M-Mode Dimensions RVDd 2.47 cm (0.9-2.6) LA Diam 2.83 cm (1.9-4.0) LVDd 4.87 cm (3.5-5.7) LVDs 3.58 cm (3.5-5.7) IVSd 0.90 cm (0.6-1.1) PWd 0.82 cm (0.6-1.1) EF (Teich) 51.70% FS 26.50% EDV (Teich) 111.20 mL ESV (Teich) 53.70 mL LV Diastology E Decel Time 210 (160-240 msec) E/A Ratio 0.8 Mitral Valve MV E Max Manuel. 56.0 (40-130 cm/s) MV A Velocity 70.0 (40-130 cm/s) E/A Ratio 0.80 MV PHT 62.0 ms Tricuspid Valve TR P. Velocity 207.00 cm/s RAP Estimate 10.00 mmHg RVSP 27.10 mmHg Left Ventricle The left ventricle is normal size. The left ventricular systolic function is normal. The left ventricular ejection fraction is within the normal range. There is increased LV wall thickness. There is normal LV segmental wall motion. Transmitral Doppler flow pattern suggests impaired LV relaxation. LVEF is 55%. Right Ventricle The right ventricle is normal size. The right ventricular systolic function is normal. Atria The left atrium size is normal. The right atrium size is normal. There is no Doppler evidence of interatrial shunt. Aortic Valve Aortic valve is mildly thickened. There is no aortic valvular stenosis. No aortic regurgitation is present. Mitral Valve The mitral valve is normal in structure. No evidence of mitral valve stenosis. Trace mitral regurgitation. Tricuspid Valve Tricuspid valve is grossly normal in structure and function. Mild tricuspid regurgitation. RVSP is 20-25 mmHg. Pulmonic Valve The pulmonary valve is normal in structure. Trace pulmonic regurgitation. Great Vessels The aortic root is normal in size. The ascending aorta is not well-visualized. IVC is normal in size and collapses >50% with inspiration. Pericardium There is no pericardial effusion. Other Information Study Quality: Adequate Conclusion Normal biventricular systolic function. Mild TR. Electronically signed by : Ariana Meyer MD 03/19/2024 01:22:48
== END 2024-03-13 23:59 | disposition home or self-care (01) ==
LOC: RT 10:37
PROVIDERS: PCP Internal Medicine; Visit Provider Physician Assistant
DX: I25.41 Coronary artery aneurysm (principal); I11.9 Hypertensive heart disease without heart failure; I25.119 Atherosclerotic heart disease of native coronary artery with unspecified angina pectoris; K55.069 Acute infarction of intestine, part and extent unspecified; I65.23 Occlusion and stenosis of bilateral carotid arteries; E78.5 Hyperlipidemia, unspecified; Z95.0 Presence of cardiac pacemaker
CPT/HCPCS: 93306

== ENCOUNTER 2024-06-08 10:34 | Day surgery (SDC) | payer OTHER, SELFPAY ==
--- NOTE | 2024-06-08 07:10 | IR_ITS ---
APPROVED REPORT Patient Location: Outpatient Detective Investigator: PONCHO Delacruz RT (R) PROCEDURES 1. Pocket Revision 2. Removal of old Pacemaker 3. Implant of Permanent Pacemaker INDICATION End of bettery life Informed consent was obtained prior to the procedure. COMPLICATIONS none Estimated Blood Loss: less than 10ml TECHNIQUE 1% lidocaine with epinephrine used to anesthetize the left anterior aspect of the chest. Scalpel was used to make the initial cutaneous incision and then used to dissect down to the existing pacemaker generator. The generator was removed from the existing pocket. Digital manipulation was required along with intermittent usage of scalpel in order to revise the pocket. The leads were removed from the old generator. The new generator was screwed to the existing leads and secured into place. Electronic interrogation proved acceptable thresholds and voltage within the lead. Antibiotics were used to flush the pocket and the pacemaker was secured using 3-0 silk into the newly revised pocket. Monocryl was used to close the subcutaneous tissue and then raheem were placed on the cutaneous area in order to approximate the incision. Patient was transferred to the postop holding area in stable condition. INTERROGATION Explanted Generator Model number: K173 Explanted Generator Serial number: [id number] Implanted Generator Model number: Assurity MRI, [id number] Implanted Generator Serial number: [id number] Atrial lead model number: 4469 Atrial lead serial number: [id number] P-wave: 3.1mV Impedance: 380 ohms Threshold: 0.75V@0.4ms Right Ventricular lead model number: 4136 Right Ventricular lead serial number: [id number] R-wave: 9.4mV Impedance: 490 ohms Threshold: 1.25V@0.6ms Pacing Parameters: Mode: DDDR Base/Max Track:60 ppm / 130 ppm No diaphragmatic stimulation at 10 volts. IMPRESSION 1. Successful Pocket Revision 2. Successful Removal of old Pacemaker 3. Successful Implant of Permanent Pacemaker PLAN 1. Postop wound care. Electronically signed by : Prosper Dyson MD 06/08/2024 13:28:30
[2024-06-08 10:38] VITALS: BMI 24.8
[2024-06-08 10:59] VITALS: PULSE 75
[2024-06-08 11:11] LABS: Basophils # 0.1 K/mm3 (0-0.2); Basophils % 0.8 % (0.1-2.0); Eosinophils # 0.2 K/mm3 (0.0-0.4); Eosinophils % 2.1 % (0.1-12.0); Hematocrit 39.8 % (37.0-47.0); Hemoglobin 13.1 g/dL (12.2-16.2); Lymphocytes # 2.1 K/mm3 (0.7-4.5); Lymphocytes % 27.4 % (10-50); Mean Corpuscular HGB Conc 32.9 g/dL (31.8-35.4); Mean Corpuscular Hemoglobin 31.3 pg (27.0-31.2); Mean Corpuscular Volume 95.2 fl (81-99); Mean Platelet Volume 8.6 fl (7.4-10.4); Monocytes # 0.7 K/mm3 (0.1-1.0); Monocytes % 8.6 % (1.7-9.3); Neutrophils # 4.6 K/mm3 (1.8-7.8); Neutrophils % 60.8 % (37.0-80.0); Platelet Count 267 K/mm3 (142-424); Red Blood Count 4.18 M/mm3 (4.20-5.40); Red Cell Distribution Width 12.9 % (11.5-17.5); White Blood Count 7.6 K/mm3 (4.8-10.8)
[2024-06-08 11:20] LABS: Chloride 101 mmol/L (98-107); Potassium 3.9 mmoL/L (3.5-5.1); Sodium 138 mmol/L (136-145)
[2024-06-08 11:23] LABS: Anion Gap 13.9 mEq/L (5-15); Blood Urea Nitrogen 23 mg/dl (7-17); Calcium 10.1 mg/dl (8.4-10.2); Carbon Dioxide 27 mmol/L (22.0-30.0); Creatinine Clearance Estimated 52 mL/min (50-200); Estimated Glomerular Filt Rate 38 ml/min (>60); GFR (African American) 46 ML/MIN (>60); Glucose 94 mg/dl (74-100)
[2024-06-08] MEDS: CLINDAMYCIN PHOSPHATE/D5W 900 MG/50 ML PIGGYBACK 100 MG IV (11:51)
[2024-06-08] MEDS: diphenhydrAMINE 50MG/ML VIAL 50 MG IV (11:51)
[2024-06-08] MEDS: LIDOCAINE 1% W/EPI 1:100,000 20ML VIAL 20 ML SQ (11:52)
[2024-06-08] MEDS: PROPOFOL 10MG/ML 20ML VIAL 500 MG IV (12:27)
[2024-06-08 12:40] VITALS: BP 104/69; BP 106/65; PULSE 72; PULSE 97; RESP 20; O2SAT 100
[2024-06-08 12:50] VITALS: BP 116/65; PULSE 73; RESP 16; O2SAT 100
[2024-06-08 13:25] VITALS: BP 150/88; PULSE 72; RESP 20; O2SAT 97
[2024-06-08 13:28] VITALS: BP 138/82; PULSE 70; RESP 20; O2SAT 100
== END 2024-06-08 13:57 | disposition home or self-care (01) ==
LOC: CATHLAB 10:34
PROVIDERS: PCP Internal Medicine; Visit Provider Internal Medicine
PROC: 0JPT0PZ Removal of Cardiac Rhythm Related Device from Trunk Subcutaneous Tissue and Fascia, Open Approach (ICD-10-PCS; principal; 2024-06-08 08:30)
DX: Z45.010 Encounter for checking and testing of cardiac pacemaker pulse generator [battery] (principal); Z79.899 Other long term (current) drug therapy; I65.23 Occlusion and stenosis of bilateral carotid arteries; I25.41 Coronary artery aneurysm; F17.210 Nicotine dependence, cigarettes, uncomplicated; I11.9 Hypertensive heart disease without heart failure; E78.5 Hyperlipidemia, unspecified; I70.1 Atherosclerosis of renal artery; K55.069 Acute infarction of intestine, part and extent unspecified; I25.118 Atherosclerotic heart disease of native coronary artery with other forms of angina pectoris
CPT/HCPCS: 33228; 36415; 80048; 85025; C1785; J0736; J1200

== ENCOUNTER 2024-09-24 11:15 | Outpatient (CLI) | payer OTHER, SELFPAY ==
[2024-09-24 12:27] LABS: Basophils # 0.1 K/mm3 (0-0.2); Basophils % 0.7 % (0.1-2.0); Eosinophils # 0.1 Kmm3 (0.0-0.4); Eosinophils % 0.6 % (0.1-12.0); Hematocrit 44.8 % (37.0-47.0); Hemoglobin 14.8 g/dL (12.2-16.2); Immature Granulocytes # 0.04 10^3uL; Immature Granulocytes % 0.5 %; Lymphocytes # 1.8 K/mm3 (0.7-4.5); Lymphocytes % 20.1 % (10-50); Mean Corpuscular Volume 93.9 fl (81-99); Mean Platelet Volume 8.7 fl (7.4-10.4); Monocytes # 0.7 K/mm3 (0.1-1.0); Monocytes % 7.5 % (1.7-9.3); Neutrophils # 6.2 K/mm3 (1.8-7.8); Neutrophils % 70.6 % (37.0-80.0); Nucleated Red Blood Cells # 0 10^3/uL; Nucleated Red Blood Cells % 0 %; Platelet Count 329 K/mm3 (142-424); Red Blood Count 4.77 M/mm3 (4.20-5.40); Red Cell Distribution Width 12.6 % (11.5-17.5); Red Cell Distribution Width-SD 43.4 fL; White Blood Count 8.7 K/mm3 (4.8-10.8)
[2024-09-24 13:57] LABS: Alanine Aminotransferase 25 U/L (12-78); Alkaline Phosphatase 84 U/L (38-126); Anion Gap 13.2 mEq/L (5-15); Aspartate Amino Transferase 35 U/L (14-36); Bilirubin,Direct 0.5 mg/dl (0.0-0.4); Bilirubin,Indirect 0.5 mg/dL (0.0-0.9); Bilirubin,Unconjugated 0.6 mg/dL (0.0-1.1); Blood Urea Nitrogen 19 mg/dl (7-17); Calcium 10.7 mg/dl (8.4-10.2); Carbon Dioxide 23 mmol/L (22.0-30.0); Chloride 109 mmol/L (98-107); Cholesterol 167 mg/dl (140-200); Estimated Glomerular Filt Rate 41 ml/min (>60); GFR (African American) 50 ML/MIN (>60); Glucose 96 mg/dl (74-100); HDL Cholesterol 55 mg/dl (40-60); Potassium 5.2 mmoL/L (3.5-5.1); Sodium 140 mmol/L (136-145); Total Protein,Serum 7.4 g/dl (6.3-8.2); Triglycerides 133 mg/dl (30-150); VLDL Cholesterol 27 mg/dL (0-40)
[2024-09-24 14:08] LABS: Direct LDL Cholesterol 76.85 mg/dL (100-129)
[2024-09-24 14:28] LABS: Thyroid Stimulating Hormone 0.71 uIU/mL (0.465-4.68)
[2024-09-24 16:15] LABS: Free T4 (Free Thyroxine) 1.44 ng/dl (0.78-2.19)
== END 2024-09-24 23:59 | disposition home or self-care (01) ==
LOC: LAB 11:16
PROVIDERS: PCP Family Medicine; Visit Provider Physician Assistant
DX: I11.9 Hypertensive heart disease without heart failure (principal); I65.23 Occlusion and stenosis of bilateral carotid arteries; E87.6 Hypokalemia; R73.9 Hyperglycemia, unspecified; E78.5 Hyperlipidemia, unspecified; E55.9 Vitamin D deficiency, unspecified; Z79.899 Other long term (current) drug therapy
CPT/HCPCS: 36415; 80048; 80061; 80076; 84439; 84443; 85025